=== PATIENT | female | born 1950 | race Caucasian/White ===

== ENCOUNTER → 2018-04-25 08:03 | Outpatient (CLI) | payer MEDICARE, OTHER, SELFPAY ==
[2018-04-25 10:01] LABS: AST(SGOT) 24 U/L (15-37); Alanine Aminotransfer ALT/SGPT 27 U/L (13-56); Albumin, Serum 3.6 g/dL (3.2-5.0); Alkaline Phosphatase 89 U/L (45-117); Bilirubin, Direct 0.13 mg/dL (0.00-0.30); Cholesterol 200 mg/dL (200); Globulin 4.3 g/dL (2.2-4.2); High Density Lipoprotein 48 mg/dL; Protein, Total 7.9 g/dL (6.4-8.2); Triglycerides 186 mg/dL; Very Low Density Lipoprotein 37 mg/dL (5-40)
== END ==
PROVIDERS: Family Provider Family Medicine; PCP Family Medicine; Visit Provider Internal Medicine Cardiovascular Disease
DX: E78.5 Hyperlipidemia, unspecified (principal); I48.91 Unspecified atrial fibrillation; Z94.7 Corneal transplant status
CPT/HCPCS: 36415; 80061; 80076

== ENCOUNTER → 2019-02-02 12:51 | Outpatient (CLI) | payer MEDICARE, OTHER, SELFPAY ==
[2019-01-13 13:49] VITALS: BMI 28.7
--- NOTE | 2019-02-02 12:53 | ECHOD_ITS ---
Reason For Study: Syncope Procedure This was a 2D Doppler, Color Flow transthoracic echocardiogram. Exam performed in department. Left Ventricle Normal size and thickness. The estimated ejection fraction is 65 %. Stage 1 diastolic dysfunction. No regional wall motion abnormalities noted. Right Ventricle Normal size and thickness. Normal systolic function. Atria Normal left atrium. Normal right atrium. Normal atrial septum. Mitral Valve The mitral valve is structurally normal. No prolapse or stenosis seen. Mild (1+) mitral valve insufficiency. Tricuspid Valve Normal tricuspid valve. Mild (1+) tricuspid valve insufficiency. Right ventricular systolic pressure estimated to be 35 mmHg. Aortic Valve Normal aortic valve. Trisinus/trileaflet aortic valve. Pulmonic Valve Normal pulmonic valve. Trivial pulmonic valve insufficiency. Great Vessels Normal aortic root. Normal arch. Normal inferior vena cava. Inferior vena cava collapse with sniff. Pericardium/Pleural No pericardial effusion. Medication 22 gauge I.V. with prn adaptor inserted into right arm. Diluted definity 2ml given slow IV push to enhance endocardial definition. MMode/2D Measurements & Calculations LVIDd: 4.3 cm IVSd: 0.97 cm Ao root diam: 3.3 cm LVIDs: 3.1 cm LVPWd: 1.0 cm RVDd: 3.0 cm FS: 28.1 % LAV(MOD-bp): 43.0 ml LA A4 area: 17.1 cm2 RA A4 area: 14.8 cm2 LAV(MOD-bp) Indexed: 25.7 ml/m2 LAV(MOD-sp2): 40.9 ml LAV(MOD-sp4): 42.3 ml Time Measurements MV dec time: 0.29 sec Doppler Measurements & Calculations MV E max reinaldo: 58.2 cm/sec Lat Peak E' Reinaldo: 7.9 cm/sec Med Peak E' Reinaldo: 7.2 cm/sec MV A max reinaldo: 75.1 cm/sec E/E' lat: 7.4 E/E' med: 8.1 MV E/A: 0.78 MV V2 max: 79.8 cm/sec MV P1/2t max reinaldo: 71.6 cm/sec Ao V2 max: 115.8 cm/sec MV max P.5 mmHg MV P1/2t: 73.4 msec Ao max P.4 mmHg MV V2 mean: 45.3 cm/sec MV dec slope: 285.9 cm/sec2 Ao V2 mean: 72.3 cm/sec MV mean P.97 mmHg Ao mean P.4 mmHg MV V2 VTI: 19.7 cm MVA(P1/2t): 3.0 cm2 Ao V2 VTI: 22.8 cm LV V1 max: 88.6 cm/sec MR max reinaldo: 476.3 cm/sec PA V2 max: 69.3 cm/sec LV V1 max P.1 mmHg MR max P.7 mmHg LV V1 mean P.4 mmHg MR mean reinaldo: 382.8 cm/sec LV V1 mean: 54.0 cm/sec MR mean P.4 mmHg LV V1 VTI: 21.6 cm MR VTI: 170.1 cm TR max reinaldo: 265.3 cm/sec TR max P.2 mmHg Interpretation Summary The estimated ejection fraction is 65 %. Stage 1 diastolic dysfunction. Mild (1+) mitral valve insufficiency. Mild (1+) tricuspid valve insufficiency. Right ventricular systolic pressure estimated to be 35 mmHg. Compared to echo report dated 07/17/2015, no apprecialbe changes noted. The study was technically difficult. Contrast injection was performed. Ordering Physician: Madhav Zapien Referring Physician: Madhav Zapien Performed By: Carmelo Devi RCS
== END ==
PROVIDERS: Family Provider Family Medicine; PCP Family Medicine; Referring Provider Internal Medicine Cardiovascular Disease; Visit Provider Internal Medicine Cardiovascular Disease
DX: R55 Syncope and collapse (principal)
CPT/HCPCS: 93306; Q9957; A4216; C8929

== ENCOUNTER → 2019-08-31 09:33 | Outpatient (CLI) | payer MEDICARE, OTHER, SELFPAY ==
[2019-08-31 09:36] VITALS: BMI 29.5
[2019-08-31 11:31] LABS: AST(SGOT) 17 U/L (15-37); Alanine Aminotransfer ALT/SGPT 21 U/L (13-56); Albumin, Serum 3.5 g/dL (3.2-5.0); Alkaline Phosphatase 87 U/L (45-117); Bilirubin, Direct 0.14 mg/dL (0.00-0.30); Cholesterol 201 mg/dL (200); Globulin 4.1 g/dL (2.2-4.2); Protein, Total 7.6 g/dL (6.4-8.2); Triglycerides 129 mg/dL
[2019-08-31 11:32] LABS: High Density Lipoprotein 48 mg/dL; Very Low Density Lipoprotein 26 mg/dL (5-40)
== END ==
PROVIDERS: Family Provider Family Medicine; PCP Family Medicine; Referring Provider Internal Medicine Cardiovascular Disease; Visit Provider Internal Medicine Cardiovascular Disease
DX: E78.00 Pure hypercholesterolemia, unspecified (principal)
CPT/HCPCS: 80061; 80076

== ENCOUNTER 2020-12-17 15:51 | Outpatient (RCR) | payer MEDICARE, OTHER, SELFPAY ==
[2020-08-14 13:48] VITALS: BMI 29.6
[2020-12-17] MEDS: COVID-19 VACC, MRNA(PFIZER)/PF 30 MCG/0.3 ML SYRINGE IM (13:39)
[2021-01-07] MEDS: COVID-19 VACC, MRNA(PFIZER)/PF 30 MCG/0.3 ML SYRINGE IM (13:42)
== END 2021-03-18 23:59 ==
LOC: IMMUN 15:51
PROVIDERS: PCP Family Medicine; Visit Provider Family Medicine
DX: Z23 Encounter for immunization (principal)
CPT/HCPCS: 0001A; 0002A; 91300

== ENCOUNTER 2021-10-30 13:19 | Emergency (ER) | payer MEDICARE, OTHER, SELFPAY ==
[2021-10-30 13:20] VITALS: BP 154/86; PULSE 86; RESP 15; TEMP 36.6; O2SAT 98; BMI 30.1
--- NOTE | 2021-10-30 14:25 | EKG12_ITS ---
Test Reason : Blood Pressure : / mmHG Vent. Rate : 073 BPM Atrial Rate : 073 BPM P-R Int : 164 ms QRS Dur : 066 ms QT Int : 396 ms P-R-T Axes : 022 021 067 degrees QTc Int : 436 ms Normal sinus rhythm Nonspecific ST abnormality Abnormal ECG Confirmed by ALYSON CROFT, OBIE ([id number]), editor farm journal RAQUEL NICHOLE ([id number]) on 10/31/2021 9:38:04 AM Referred By: THALIA Confirmed By:OBIE SHIELDS MD
--- NOTE | 2021-10-30 14:25 | RAD_ITS ---
STUDY: X-RAY CHEST REASON FOR EXAM: Female, 71 years old. Weakness TECHNIQUE: Single AP portable view of the chest. COMPARISON: Comparison is made with prior study dated 02/21/2015. FINDINGS: EKG electrodes are seen. Hyperinflation. The lungs are clear. There is no demonstrated pleural abnormality. Normal size heart. Normal mediastinum and gorge. Normal visualized pulmonary arteries. There is atherosclerotic calcification of the aortic arch with tortuosity. Normal visualized thoracic spine. Normal visualized ribs, clavicles, and shoulders. There is no demonstrated abnormality of the visualized soft tissue structures of the upper abdomen. RAD/Chest 1 View (Portable) IMPRESSION: Hyperinflation. The lungs are clear. Electronically Signed: Ever Escobedo MD at 15:14 EST , Service support ,
--- NOTE | 2021-10-30 14:25 | CT_ITS ---
STUDY: CT BRAIN WITHOUT CONTRAST REASON FOR EXAM: Female, 71 years old. Visual disturbance RADIATION DOSAGE (If Supplied By Facility): CTDIvol = ( 44.99 ) mGy, DLP = ( 762.36 ) mGycm TECHNIQUE: Transaxial CT imaging of the brain was performed without administration of intravenous contrast material. Individualized dose optimization techniques were used for this CT. COMPARISON: No relevant priors. FINDINGS: Normal soft tissue structures. Normal calvarium. Normal size ventricles and extra-axial spaces for the patient''s age. There is evidence of a 1.6 cm x 2.4 cm area of decreased attenuation in the posterior medial aspect of the left occipital lobe. This abuts the cortical surface. This may represent a subacute infarct. No significant mass effect is seen. Correlation with MRI scan is recommended for further evaluation. Normal basal ganglia and thalami. Normal brainstem. Normal cerebellum. There is prominence of the cisterna magna. This is a normal variant. There is no intracranial hemorrhage. There are no findings of an acute ischemic infarction. Normal visualized paranasal sinuses. CT/Brain/Head without Contrast IMPRESSION: 1.6 cm x 2.4 cm area of decreased attenuation in the peripheral medial aspect of the posterior left occipital lobe as described. This may represent an area of subacute infarction although an underlying mass cannot be excluded. Correlation with MRI is recommended. Electronically Signed: Ever Escobedo MD at 15:11 EST , Service support ,
--- NOTE | 2021-10-30 14:26 | EDS_ITS ---
HPI History of Present Illness Chief Complaint: General Illness Narrative Narrative: 71-year-old female presenting with a 4-day history of mild headache, lightheadedness, generalized fatigue, visual disturbance in her right eye. Patient states that this all started on Wednesday. She does not have history of this. It does not seem to be progressing but does not seem to be getting better either. She states that she does not have fever or chills. She does not have a cough or chest pain. She has abdominal pain. She denies urinary complaints. She has not had diarrhea or constipation. Patient states that she recently had a dental surgery and has been on antibiotics but finished her last dose today. She states he believes it was amoxicillin. Patient does not have any dental pain. She states that insofar as her vision is concerned when she covers her left eye she can see out of her right eye but when she uses both eyes she has trouble seeing. This makes her feel lightheaded when she walks. She has not had any history of head injury. She has been able to move all 4 extremities. She is not had any slurred speech or facial droop. She has no paresthesias. [facility] Medical History Dizziness and giddiness History of pericardial effusion Paroxysmal atrial fibrillation Pericardial effusion Sinus tachycardia Supraventricular arrhythmia Syncope and collapse Tobacco abuse Home Medications calcium carbonate 600 mg PO DAILY 02/21/15 [History Last Taken 02/21/15] cholecalciferol (vitamin D3) 2,000 unit PO DAILY 02/21/15 [History Last Taken 02/21/15] prednisolone acetate 1 drp LEFT EYE DAILY 02/21/15 [History Last Taken 2 Days Ago ~10/28/21] acyclovir 200 mg capsule 400 mg PO .COMPLEX 01/13/19 [History Last Taken 10/30/21] amlodipine 5 mg tablet 5 mg PO DAILY #30 tab 09/16/21 [Rx Last Taken 10/30/21] losartan 50 mg tablet 50 mg PO DAILY #90 tab 10/15/21 [Rx Last Taken 10/30/21] metoprolol succinate 25 mg tablet,extended release 24 hr 25 mg PO BID #180 tab 10/15/21 [Rx Last Taken 10/30/21] Allergy/AdvReac Type Severity Reaction Status Date / Time No Known Allergies Allergy Verified 10/30/21 13:20 Surgical History corneal transplant History of tonsillectomy History of tubal ligation Social History Smoking Status: Former smoker how long ago did patient quit smokin years ago alcohol intake: current alcohol intake frequency: holidays/special occasions only substance use type: does not use and other details: CBD vape caffeine: No what type of physical activity do you participate in: none ROS ROS ED Constitutional Constitutional ED: Denies chills or fever(s) Eyes Eyes: Reports blurry vision right ENT ENT ED: Denies rhinorrhea or sore throat Cardiovascular Cardiovascular: Denies chest pain or palpitations Respiratory/Chest Respiratory/Chest: Denies cough or dyspnea Gastrointestinal Gastrointestinal: Denies abdominal pain, diarrhea, nausea or vomiting Genitourinary Genitourinary ED: Denies dysuria or hematuria Musculoskeletal Musculoskeletal: Denies arthralgias or myalgias Integumentary Denies Abrasions or rash Neurologic Neurologic: Reports headache(s); Denies paresthesias EXAM Physical Exam Const Vital Signs: 10/30/21 13:20 10/30/21 14:51 10/30/21 17:15 Temperature 97.8 F Temperature Source Temporal Pulse Rate 86 72 Respiratory Rate 15 19 H Respiratory Effort Normal Non-Labored Respiratory Pattern Normal Blood Pressure 154/86 H 123/89 H Blood Pressure Mean 108 100 Pulse Ox 98 95 Oxygen Delivery Method Room Air Room Air Oxygen Flow Rate (L/min) 10/30/21 19:26 Temperature Temperature Source Pulse Rate 80 Respiratory Rate 24 H Respiratory Effort Respiratory Pattern Blood Pressure 143/90 H Blood Pressure Mean 107 Pulse Ox 95 Oxygen Delivery Method Nasal Cannula Oxygen Flow Rate (L/min) 2 Positive well nourished General Appearance ED: NAD; Negative for pallor HEENT Reports moist mucous membranes Negative for trauma Eyes PERRL and EOMs intact bilaterally Eyes Narrative: Left eye visual cox appear to be intact. While testing her right eye from the medial direction she sees my finger as I approached the left side of her face as I am in front of her left eye. From the lateral approach she does not see my finger coming across her visual field until its well past the midline of her right eye. Resp normal respiratory effort and clear to auscultation bilaterally Cardio regular rate and regular rhythm Extremity normal to inspection Neuro oriented x3 and no sensory deficits noted Sensorium / Orientation: alert Motor Exam: strength 5/5 throughout Psych mental status grossly normal Skin General Skin Exam: Negative for jaundice or pallor MDM MDM MDM Narrative Medical decision making narrative: Patient presenting with multiple symptoms of fatigue and weakness. She does mention that she has difficulty seeing out of her right eye unless her left eye is closed. On examination she has a right sided hemianopsia of her right eye. No other focal neurologic deficits. CBC and CMP are unremarkable. Urinalysis is negative for infection. EKG is sinus rhythm with a ventricular rate of 69 bpm without sign of ischemic change or dysrhythmia. Chest x-ray on my interpretation shows no acute cardiopulmonary process and the radiologist does agree patient does have a noted history of atrial fibrillation and her history. She is not anticoagulated. High- sensitivity troponin is 43. Patient is not reporting any chest pain. COVID testing today is negative. CT of the brain without contrast shows a 1.6 cm x 2.4 cm area of decreased attenuation in the peripheral medialaspect of the posterior left occipital lobe. The radiologist Did call me and tell me that there was a infarct here on MRI on follow-up. He states there is hemorrhagic conversion. At this point I did speak with [facility] and spoke with Dr. Blanco who recommended that we do transfer to [facility]. They will do a hemorrhagic stroke alert. Patient is not on any anticoagulation and there is nothing to reverse. Accepting physician will be Dr. North. I do not believe the patient at this point needs [facility] but she does need emergent transfer. EMS states they could be here in about an hour. Patient consented for transfer. Impression: 1. Right eye right-sided hemianopsia 2. 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 Lab Data Labs: Laboratory Results - last 24 hr 10/30/21 10/30/21 10/30/21 13:40 14:44 14:44 WBC 10.9 RBC 4.93 Hgb 15.7 H Hct 47.4 H MCV 96.1 MCH 31.8 MCHC 33.1 RDW Std Deviation 49.3 H RDW Coeff of Jeannette 13.9 Plt Count 391 MPV 10.3 Immature Gran % (Auto) 0.500 Neut % (Auto) 64.8 Lymph % (Auto) 23.3 [place] % (Auto) 9.7 Eos % (Auto) 1.6 Baso % (Auto) 0.1 Absolute Neuts (auto) 7.1 Absolute Lymphs (auto) 2.54 Nucleated RBC % 0 Sodium 138 Potassium 4.6 Chloride 106 Carbon Dioxide 28.0 Anion Gap 4 L BUN 16 Creatinine 0.90 Estim Creat Clear Calc 43.89 Est GFR (MDRD) Af Amer 79 Est GFR (MDRD) Non-Af 65 BUN/Creatinine Ratio 17.7 Glucose 92 Calcium 9.8 Total Bilirubin 0.30 AST 23 ALT 27 Alkaline Phosphatase 83 Troponin I High Sens 43 Total Protein 7.9 Albumin 3.5 Globulin 4.4 H Albumin/Globulin Ratio 0.8 L Urine Color Yellow Urine Clarity Sl. Cloudy Urine pH 6.0 Ur Specific Kelli[place] 1.005 Urine Protein Negative Urine Glucose (UA) Normal Urine Ketones Negative Urine Occult Blood Negative Urine Nitrite Negative Urine Bilirubin Negative Urine Urobilinogen Normal Ur Leukocyte Esterase Negative Urine RBC 0 SEEN Urine WBC 0 SEEN Ur Squamous Epith Cells 0-5 SEEN Amorphous Sediment 1+ URATE Urine Bacteria 0 SEEN Urine Mucus 0 SEEN Radiography Diagnostic Testing: Clinical Impression(s) from Imaging Studies Brain CT 10/30/21 14:25 IMPRESSION: 1.6 cm x 2.4 cm area of decreased attenuation in the peripheral medial aspect of the posterior left occipital lobe as described. This may represent an area of subacute infarction although an underlying mass cannot be excluded. Correlation with MRI is recommended. Electronically Signed: Ever Escobedo MD at 15:11 EST , Service support , Chest X-Ray 10/30/21 14:25 IMPRESSION: Hyperinflation. The lungs are clear. Electronically Signed: Ever Escobedo MD at 15:14 EST , Service support , Brain MRI 10/30/21 18:10 ADDENDUM: 10/30/21 1932 Discharge Plan Triage Chief Complaint: General Illness ED Provider: Delio Palmer Dx/Rx/DC Orders Prescriptions: No Action amlodipine 5 mg tablet 5 mg PO DAILY Qty: 30 RF: 12 prednisolone acetate 10 ML drops,suspension 1 drp LEFT EYE DAILY RF: 0 calcium carbonate 600 MG tablet 600 mg PO DAILY RF: 0 cholecalciferol (vitamin D3) 1,000 UNIT tablet 2,000 unit PO DAILY RF: 0 acyclovir 200 mg capsule 400 mg PO .COMPLEX RF: 0 metoprolol succinate 25 mg tablet extended release 24 hr 25 mg PO BID Qty: 180 RF: 3 losartan 50 mg tablet 50 mg PO DAILY Qty: 90 RF: 3 Primary Care Provider: Mynor Underwood
[2021-10-30] MEDS: 0.9% Normal Saline 1,000 ML 1000 ML IV (14:44)
[2021-10-30 14:53] LABS: Absolute Lymphocyte Count 2.54 X10^3/uL (0.83-4.51); Absolute Neutrophil Count 7.1 X10^3/uL (2.0-7.7); Basophil# 0.01 X10^3/uL; Basophil% 0.1 % (0-1); Eosinophil# 0.17 X10^3/uL; Eosinophils% 1.6 % (0-5); Hematocrit 47.4 % (37-47); Hemoglobin 15.7 g/dL (12.0-15.0); Lymphocyte # 2.54 X10^3/ul (0.83-4.51); Lymphocyte % 23.3 % (19-41); Mean Corp Hgb Conc 33.1 g/dL (32-36); Mean Corpuscular Hgb 31.8 pg (27.0-32.0); Mean Corpuscular Volume 96.1 fL (81-99); Mean Platelet Vol. 10.3 fl (6.2-12.0); Monocyte# 1.06 X10^3/uL; Monocyte% 9.7 % (0-10); NRBC Flagged by Analyzer 0 % (0-5); Neutrophil # 7.07 X10^3/uL (2.7-7.7); Neutrophil % 64.8 % (47-70); Platelet Count 391 K/mm3 (150-450); RBC Distribution Width CV 13.9 % (11.6-14.6); RBC Distribution Width SD 49.3 fl (35.1-43.9); Red Blood Count 4.93 M/mm3 (4.2-5.4); White Blood Count 10.9 K/mm3 (4.4-11.0)
[2021-10-30 15:04] LABS: Bacteria 0 SEEN /hpf (None Seen); Mucous, Urine 0 SEEN /hpf (<or=2+); Red Blood Cells-Urine 0 SEEN /hpf (0-5); White Blood Cells 0 SEEN /hpf (0-5)
[2021-10-30 15:11] LABS: ALB/GLOB Ratio 0.8 RATIO (0.9-2.4); AST(SGOT) 23 U/L (15-37); Alanine Aminotransfer ALT/SGPT 27 U/L (13-56); Albumin, Serum 3.5 g/dL (3.2-5.0); Alkaline Phosphatase 83 U/L (45-117); Anion Gap 4 (5-15); BUN 16 mg/dL (7-18); BUN/Creat Ratio 17.7 RATIO (10-20); Calcium,Total 9.8 mg/dL (8.5-10.1); Chloride 106 mmol/L (98-107); EST Glomerular Filtration Rate 65 mL/min (>60); Est Glom Filt Rate - Afr Amer 79 mL/min (>60); Estimated Creatinine Clearance 43.89 ml/min; Globulin 4.4 g/dL (2.2-4.2); Glucose 92 mg/dL (74-106); Potassium 4.6 mmol/L (3.5-5.1); Protein, Total 7.9 g/dL (6.4-8.2); Sodium Level 138 mmol/L (136-145); Troponin-I HS 43 pg/mL (3.0-54.0)
[2021-10-30 15:14] LABS: Color, Urine Yellow (Yellow); Glucose, Dipstick Normal (Normal); Ketone-Dipstick Negative (Negative); Leukocyte Esterase-Dipstick Negative /ul (Negative); Nitrite-Dipstick Negative (Negative); Occult Blood-Urine Negative /ul (Negative); Protein-Dipstick Negative (Negative); Specific Gravity, Urine 1.005 (1.002-1.030); Urine Bilirubin Dipstick Negative (Negative); Urine Clarity Sl. Cloudy (Clear); Urine Urobilinogen Normal (Normal)
[2021-10-30 15:26] LABS: Amorphous Sediment 1+ URATE; Squamous Epithelial Cells - UA 0-5 SEEN /hpf (5-10)
--- NOTE | 2021-10-30 15:59 | ED.RN ---
This nurse assisted pt up to bathroom gait steady, pt was finished and pulled the call light, this nurse re-entered room, pt stated I just don't feel right pt then slid down the wall to the floor without incident. This nurse had a co-worker stay with pt and obtained a wheelchair, pt up to wheelchair and escorted back to room 16. Pt resting quietly in bed vital signs, bp 150/81 pulse 77 respirations 19 pulse ox RA 98%
--- NOTE | 2021-10-30 16:21 | EKG12_ITS ---
Test Reason : SYNCOPE Blood Pressure : / mmHG Vent. Rate : 069 BPM Atrial Rate : 069 BPM P-R Int : 162 ms QRS Dur : 068 ms QT Int : 406 ms P-R-T Axes : 017 006 051 degrees QTc Int : 435 ms Normal sinus rhythm Normal ECG Confirmed by JOJO CROFT, ILENE ([id number]), newspaper copy editor YASH MCGARRY ([id number]) on 10/31/2021 1:25:14 PM Referred By: THALIA/JASMEET Confirmed By:ILENE URIBE MD
[2021-10-30 17:15] VITALS: BP 123/89; PULSE 72; RESP 19; O2SAT 95
--- NOTE | 2021-10-30 18:10 | MRI_ITS ---
We are attempting to reach an attending provider to discuss findings. An addendum with communication details will be sent when the communication is complete. STUDY: MR Brain W/O Contrast 10/30/2021 7:12 PM REASON FOR EXAM: Female, 71 years old. Technologist Notes HEADACHE X 4 DAYS. RIGHT EYE BLURRY. LIGHTHEADED. CT BRAIN DONE 10/30/21. stroke HEADACHE COMPARISON: CT done earlier TECHNIQUE: Standardized multiplanar fat and water weighted pulse sequences were obtained. MR Brain W/O Contrast FINDINGS: There is mild cerebral atrophy with widening of the extra-axial spaces and ventricular dilatation. There are a limited number of small white matter hyperintensities, distributed throughout the deep white matter tracts of the cerebral hemispheres, consistent with mild chronic white matter ischemic changes. There is mild prominence of the vermian folia, consistent with atrophy of the vermis. The cerebellar hemispheres are normal. There is a hypodense region which is likely an arachnoid cyst. This is noted between the cerebellar hemisphere. There is abnormal diffusion weighted signal in the Left occipital lobe. There is a correlation abnormal area of low ADC signal. This is consistent for an infarction. Normal bilateral basal ganglia. Normal thalami. There is no extra-axial fluid accumulation. Normal flow voids within the major intracranial circulation suggesting patency by spin echo criteria. Normal sella turcica, pituitary gland, infundibular stalk, optic chiasm and hypothalamus. Normal tectal plate and pineal gland. Normal midbrain, chanel and medulla. Normal basal cisterns. Normal bilateral temporal bones. Normal bilateral internal auditory canals. No demonstrated orbital abnormality, within the constraints of a routine brain study. Normal visualized paranasal sinuses. Normal calvarium and skull base. Normal visualized soft tissue structures. There are degenerative changes of the anterior atlantoaxial articulation. Aspect score 10 IMPRESSION: (NOT LISTED IN ORDER OF SIGNIFICANCE) There is an acute infarction of the left occipital lobe with hemorrhagic conversion. Electronically Signed: Mayo Snyder MD at 19:17 EST , Service support , MRI/Brain without Contrast
[2021-10-30 19:26] VITALS: BP 143/90; PULSE 80; RESP 24; O2SAT 95
--- NOTE | 2021-10-30 19:46 | ED.RN ---
CALLED PHYSICIANS AND THE ETA IS ONE HOUR
[2021-10-30] MEDS: LORazepam 2 MG/ML Syringe 0.5 MG IV (20:36)
[2021-10-30] MEDS: Acetaminophen 500 MG Tablet 1000 MG PO (20:36)
[2021-10-30 20:45] VITALS: BP 158/96; PULSE 91
== END 2021-10-30 20:46 | disposition short-term general hospital (02) ==
LOC: ED 13:57
PROVIDERS: Emergency Provider Student in an Organized Health Care Education/Training Program; PCP Family Medicine; Visit Provider Student in an Organized Health Care Education/Training Program
DX: H53.47 Heteronymous bilateral field defects (principal); I48.0 Paroxysmal atrial fibrillation; I63.532 Cerebral infarction due to unspecified occlusion or stenosis of left posterior cerebral artery; Z87.891 Personal history of nicotine dependence; Z79.899 Other long term (current) drug therapy
CPT/HCPCS: 70450; 70551; 71045; 80053; 81001; 84484; 85025; 87426; 93005; 96361; 96374; 99285; J7030; A4216

== ENCOUNTER 2021-11-06 16:00 | Outpatient (RCR) | payer MEDICARE, OTHER, SELFPAY ==
--- NOTE | 2021-11-06 16:52 | HP.PTEVAL_ITS ---
Patient's Visit Information RJEI PAGE is a 71 year old F referred to Physical Therapy by GITA AYALA with a diagnosis of . Date of Evaluation: 11/06/21 Physical Therapist: Lawanda Bello DPT - Visit Plan Frequency: 1x/Week Duration: 1 Week Plan: Patient is currently safe with functional mobility- her balance, endurance and strength are within functional limits for her age. She goes to [employer] 3x a week for workout with family. - Subjective CVA was about a week and a half ago. Patient lives in a single story- 3 stairs to enter- HR- no problems getting in/out. Lives alone- fully I prior to her stroke. At this time she does not have her confidence. She reports that she is not driving. She has not had any falls or loss of balance. No pain in her legs. No N/T in her feet or toes. 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 *See OT note for more details - Objective Posture: fair throughout. Gait: no deviation noted. Stairs: asc/desc 8 recip with 1 HR- good technique. Balance: SLS: 5 sec Tandem Stance: 5 sec HR/TR: able. ROM: WFL in all planes. Strength: Core: fair Hip: 4+/5, Knee: 5/5, Ankle: 5/5. Flex: HS: mild, Gastroc: mild - Balance/Special Test Scores Functional Gait Assessment Score: 29 % Disability: 3.3400 Lower Extremity Functional Score: 68 TUG Test Time Seconds: 6.9 - Anticipated Interventions Thank you for the opportunity to evaluate your patient. For Medicare and Medicare HMO plans, please review the plan of care and approve it. It will need to be FAXED BACK to us at [phone] for Medicare purposes. For Medicare only, by signing this I certify the plan of care. Please let me know if there are questions or concerns regarding this plan of care. Physician Signature: Date:
--- NOTE | 2021-11-06 16:53 | HP.PT.NRP ---
REJI PAGE was seen in my office for initial evaluation on 11/06/21. The following Plan of Care was established for this patient: Initial Frequency: 1x/Week Initial Duration: 1 Week This patient was last seen in our office . Pertinent comments regarding their Physical therapy will appear below: At this point I will be discontinuing this patient from physical therapy. I would be happy to see this patient again in the future if found appropriate by the physician. Thank you! Lawanda Bello, SAMIAT Balance/Gait/Functional tests - Balance/Special Test Scores Functional Gait Assessment Score: 29 % Disability: 3.3400 Lower Extremity Functional Score: 68 TUG Test Time Seconds: 6.9 Tug Test: <10 sec.=free mobile
--- NOTE | 2021-11-10 16:45 | HP.OTEVAL ---
Patient's Visit Information REJI PAGE is a 71 year old F, referred to Occupational Therapy by GITA AYALA, with a diagnosis of cva. Date of Evaluation: 11/06/21 Occupational Therapist: Vandana Zarate, NERIS/Alex, CHT - Subjective This 71 year old female was seen for OT with dx of CVA- pt states she feels it happened a week ago Wednesday10/27/21 and went to hospital on 10/30/21. pt states she was not feeling well- pt though she had a bug of some kind- pt states this feeling of unwell has made her very nervous- pt states she wanted to go the the hospital. she mentioned to ER . her vision was off- pt states MRI indicated a stroke and had more test- - ADLs Comments: pt lives alone in ranch home with 3 steps to get in the home-. pt states she does have to go down the stairs to do laundry but-. pt states she drives- cooking- cleaning. dtr with pt - states she feels her mom is doing well- - ROM ROM Comments: WNL bilaterally - Strength Shoulder: right 4+/5 left 4+/5 Elbow: right 4+/5 left 4+/5 [employer] Rep[employer]r: right 50# left 45# Lateral Pinch: right 6# left 6# Tripod Pinch: right 6# left 4# Strength Comments: pt demo good functional strength - pt denies strength deficits - Sensation Sensation Comments: denies - Visual/Perceptual Skills Comments: pt states she has noticed she has a visual change - Nine Hole Peg Right: 31.49 Left: 35.51 - In-Hand Manipulation Finger to Palm Translation: Normal - Right, Normal - Left Palm to Finger Translation: Normal - Right, Normal - Left Shift: Normal - Right, Normal - Left Rotation: Normal - Right, Normal - Left - Quick DASH-Disab of Arm,Shoulder& Hand Quick DASH Score: 6.8175 - Rehabilitation General Assessment: pt denies need for OT services - dtr with pt and states they will initiate going back to [employer] and initiate an exercise routine again. - Visit Plan TEXT: Thank you for the opportunity to evaluate your patient. For Medicare and Medicare HMO plans, please review the plan of care and approve it. It will need to be FAXED BACK to us at [phone] for Medicare purposes. Please let me know if there are questions or concerns regarding this plan of care. Physician Signature: Date:
--- NOTE | 2021-11-10 16:46 | HP.OTDCSUM ---
It has been my pleasure to treat REJI PAGE under orders from GITA AYALA, for the diagnosis of cva for a total of 1 visit(s). Please see the following information for a summary of their discharge status. Patient Goals: Other Other: no skilled OT services needed at this time. If there are questions or concerns regarding this patient's occupational therapy, please fell free to call me at [phone]. Thank you for the referral of this patient. Sincerely, Vandana Zarate, OTR/L, CHT
== END 2021-11-06 19:00 | disposition home or self-care (01) ==
LOC: PT 16:00
PROVIDERS: PCP Family Medicine
DX: I63.332 Cerebral infarction due to thrombosis of left posterior cerebral artery (principal)
CPT/HCPCS: 97162; 97166

== ENCOUNTER → 2022-10-28 | Outpatient (CLI) | payer MEDICARE, OTHER, SELFPAY ==
[2022-10-28 18:00] LABS: Absolute Lymphocyte Count 2.77 X10^3/uL (0.83-4.51); Absolute Neutrophil Count 8.3 X10^3/uL (2.0-7.7); Basophil% 0.8 % (0-1); Eosinophil# 0.27 X10^3/uL; Eosinophils% 2.1 % (0-5); Hematocrit 42.6 % (37-47); Hemoglobin 14.1 g/dL (12.0-15.0); Lymphocyte # 2.77 X10^3/ul (0.83-4.51); Lymphocyte % 21.7 % (19-41); Mean Corp Hgb Conc 33.1 g/dL (32-36); Mean Corpuscular Hgb 32.5 pg (27.0-32.0); Mean Corpuscular Volume 98.2 fL (81-99); Mean Platelet Vol. 12.1 fl (6.2-12.0); Monocyte# 1.25 X10^3/uL; Monocyte% 9.8 % (0-10); NRBC Flagged by Analyzer 0 % (0-5); Neutrophil # 8.34 X10^3/uL (2.7-7.7); Neutrophil % 65.2 % (47-70); Platelet Count 340 K/mm3 (150-450); RBC Distribution Width CV 14.3 % (11.6-14.6); RBC Distribution Width SD 51.8 fl (35.1-43.9); Red Blood Count 4.34 M/mm3 (4.2-5.4); White Blood Count 12.8 K/mm3 (4.4-11.0)
[2022-10-28 18:41] LABS: ALB/GLOB Ratio 0.9 RATIO (0.9-2.4); AST(SGOT) 14 U/L (15-37); Alanine Aminotransfer ALT/SGPT 25 U/L (13-56); Albumin, Serum 3.3 g/dL (3.2-5.0); Alkaline Phosphatase 91 U/L (45-117); Anion Gap 11 (5-15); BUN 14 mg/dL (7-18); BUN/Creat Ratio 14.2 RATIO (10-20); Chloride 111 mmol/L (98-107); Creatinine, Serum 0.98 mg/dL (0.55-1.02); EST Glomerular Filtration Rate 59 mL/min (>60); Est Glom Filt Rate - Afr Amer 72 mL/min (>60); Globulin 3.8 g/dL (2.2-4.2); Glucose 90 mg/dL (74-106); Potassium 3.7 mmol/L (3.5-5.1); Protein, Total 7.1 g/dL (6.4-8.2); Sodium Level 142 mmol/L (136-145)
== END | disposition home or self-care (01) ==
LOC: MFPLAB 14:21
PROVIDERS: PCP Family Medicine; Visit Provider Family Medicine
DX: R19.7 Diarrhea, unspecified (principal)
CPT/HCPCS: 36415; 80053; 85025

== ENCOUNTER → 2022-10-29 | Outpatient (CLI) | payer MEDICARE, OTHER, SELFPAY | END | disposition home or self-care (01) | LOC: LABSPEC 14:34 | PROVIDERS: PCP Family Medicine; Visit Provider Family Medicine | DX: R19.7 Diarrhea, unspecified (principal) | CPT/HCPCS: 87493 ==

== ENCOUNTER → 2022-11-23 | Outpatient (CLI) | payer MEDICARE, OTHER, SELFPAY ==
--- NOTE | 2022-11-23 15:37 | MRI_ITS ---
EXAM: MR LEFT UPPER EXTREMITY WITHOUT AND WITH INTRAVENOUS CONTRAST, FOREARM CLINICAL INDICATION: LT FOREARM TO INCLUDE ELBOW, DECREASED RANGE OF MOTION TECHNIQUE: Multiplanar and multisequence MR images of the left forearm without and with intravenous contrast. This report was created using [employer] report [employer] technology. CONTRAST: IV 14ML CLARISCAN COMPARISON: None. FINDINGS: BONES/JOINTS: Moderate osteoarthritic changes at the ulnotrochlear angulation as well as the radiocapitellar articulation. Ligaments of the elbow are intact. No fracture. No joint effusion. No bone marrow signal alterations. MUSCLES: Muscles appear normal for age. OTHER SOFT TISSUES: Low-grade partial-thickness tearing involving the common flexor tendon origin on a background of mild to moderate tendinosis. Mild to moderate tendinosis involving the common extensor tendon without any tendon tearing. OTHER FINDINGS: Neurovascular structures are within normal limits. Distal forearm is not imaged on this study (separate study). MRI/Upper Ext No Joint W/WO Cont IMPRESSION: 1. Moderate osteoarthritic changes at the ulnotrochlear angulation as well as the radiocapitellar articulation. 2. Low-grade partial-thickness tearing involving the common flexor tendon origin on a background of mild to moderate tendinosis. Mild to moderate tendinosis involving the common extensor tendon without any tendon tearing. Electronically Signed: Bj Aquino MD at 22:45 EST ,
--- NOTE | 2022-11-23 15:37 | MRI_ITS ---
EXAM: MR LEFT UPPER EXTREMITY WITHOUT AND WITH INTRAVENOUS CONTRAST, WRIST CLINICAL INDICATION: LEFT WRIST,DECREASED RANGE OF MOTION TECHNIQUE: Multiplanar and multisequence MR images of the left wrist without and with intravenous contrast. This report was created using [employer] report [employer] technology. CONTRAST: 14ml iv clariscan COMPARISON: None. FINDINGS: LIGAMENTS: SCAPHOLUNATE: Unremarkable. Intact. LUNOTRIQUETRAL: Unremarkable. Intact. TENDONS: FLEXOR COMPARTMENTS: Unremarkable. Intact. No tenosynovitis. EXTENSOR COMPARTMENTS: Unremarkable. Intact. No tenosynovitis. NERVES: MEDIAN: Unremarkable. Median nerve is normal in size and signal intensity. ULNAR: Unremarkable. Ulnar nerve is normal in size and signal intensity. MUSCLES: Unremarkable. FLUID: At least a moderate size distal radioulnar joint effusion noted. CARTILAGE: Unremarkable. The articular cartilage is preserved. TRIANGULAR FIBROCARTILAGE COMPLEX: Scapholunate interosseous ligament and lunatotriquetral interosseous ligament as well as the triangular fibrocartilage complex are intact. BONES/JOINTS: Peripheral 7 mm cystic lesion at the distal/radial aspect of the lunate. This could be degenerative or represent an interosseous ganglion cyst. Tenosynovitis involving the first extensor compartment as well as the fourth extensor compartment. Moderate osteoarthrosis involving the first carpometacarpal joint and triscaphe joint with [id number]-[id number]-flkifwxb amount of joint fluid at the first carpometacarpal joint. No fracture. No abnormal bone marrow signal. OTHER SOFT TISSUES: Subcutaneous edema dorsally and along the radial aspect of the wrist. No ganglion. MRI/Upper Ext Joint Only W/WO Cont IMPRESSION: 1. Tenosynovitis involving the first extensor compartment as well as the fourth extensor compartment. 2. Moderate osteoarthrosis involving the first carpometacarpal joint and triscaphe joint with ibnhz-pj-eoojetzo amount of joint fluid at the first carpometacarpal joint. 3. At least a moderate size distal radioulnar joint effusion noted. Electronically Signed: Bj Aquino MD at 4:25 EST ,
== END | disposition home or self-care (01) ==
LOC: MRI 15:27
PROVIDERS: PCP Family Medicine; Visit Provider Family Medicine
DX: M25.632 Stiffness of left wrist, not elsewhere classified (principal)
CPT/HCPCS: 73220; 73223; A9575

== ENCOUNTER → 2023-01-25 | Outpatient (CLI) | payer MEDICARE, OTHER, SELFPAY ==
--- NOTE | 2023-01-25 14:56 | NEURO ---
NCS and/or EMG Patient Report Ordering Doctor: Wai Berman DATE OF SERVICE: 01/25/23 Indication: Left hand weakness and intermittent numbness of the lesser fingers following a fall onto an outstretched arm several months ago. Findings: Nerve conduction studies were performed in the left upper extremity. The left median motor study recording the abductor pollicis brevis showed a normal amplitude, normal distal latency and normal conduction velocity. The left ulnar motor study recording the abductor digiti minimi showed a normal amplitude, normal distal latency and normal conduction velocity. No conduction block or focal slowing was present across the elbow. The left median sensory response recording digit two showed a normal amplitude, latency and conduction velocity. The left ulnar sensory response recording digit five was absent. The left radial sensory response recording over the extensor snuff box showed a normal amplitude, latency and conduction velocity. Needle EMG of the left upper extremity muscles was performed. No denervation was seen in any muscle, though insertional activity was slightly increased in the first dorsal interosseous. Motor units in the first dorsal interosseous and flexor digitorum profundus (ulnar) were slightly long duration and polyphasic with reduced recruitment. All other motor unit morphology, activation and recruitment patterns were normal. Impression: This is an abnormal study. 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 The pathophysiology was primarily demyelinating though there was significant secondary sensory axon loss. In addition, there is no electrophysiologic evidence of a cervical radiculopathy or other entrapment neuropathy in the left upper extremity. Marty Cuevas D.O. Multi Select Codes Neurology Neurology Interp Codes: 67278-59 Musc test done w/n test comp (interp) and 67126-64 Nr cndj test 7-8 studies (interp)
== END | disposition home or self-care (01) ==
LOC: PSN 13:44
PROVIDERS: PCP Family Medicine; Referring Provider Orthopaedic Surgery; Visit Provider Orthopaedic Surgery
DX: G56.22 Lesion of ulnar nerve, left upper limb (principal); M19.032 Primary osteoarthritis, left wrist; M62.81 Muscle weakness (generalized)
CPT/HCPCS: 95886; 95910

== ENCOUNTER → 2023-05-27 | Outpatient (CLI) | payer MEDICARE, OTHER, SELFPAY ==
[2023-05-27 17:54] LABS: Anion Gap 6 (5-15); BUN 15 mg/dL (7-18); BUN/Creat Ratio 15.2 RATIO (10-20); Calcium,Total 8.5 mg/dL (8.5-10.1); Chloride 111 mmol/L (98-107); Cholesterol 129 mg/dL (200); Creatinine, Serum 0.99 mg/dL (0.55-1.02); EST Glomerular Filtration Rate 59 mL/min (>60); Est Glom Filt Rate - Afr Amer 71 mL/min (>60); Glucose 93 mg/dL (74-106); High Density Lipoprotein 43 mg/dL; Potassium 4.1 mmol/L (3.5-5.1); Sodium Level 138 mmol/L (136-145); Triglycerides 123 mg/dL; Very Low Density Lipoprotein 25 mg/dL (5-40)
== END | disposition home or self-care (01) ==
LOC: MFPLAB 14:05
PROVIDERS: PCP Family Medicine; Visit Provider Family Medicine
DX: I10 Essential (primary) hypertension (principal)
CPT/HCPCS: 36415; 80048; 80061

== ENCOUNTER → 2024-06-26 | Outpatient (CLI) | payer MEDICARE, OTHER, SELFPAY ==
[2024-06-26 18:21] LABS: ALB/GLOB Ratio 0.8 RATIO (0.9-2.4); AST(SGOT) 24 U/L (15-37); Alanine Aminotransfer ALT/SGPT 25 U/L (13-56); Albumin, Serum 3.3 g/dL (3.2-5.0); Alkaline Phosphatase 91 U/L (45-117); Anion Gap 7 (5-15); BUN 17 mg/dL (7-18); BUN/Creat Ratio 13.6 RATIO (10-20); Chloride 106 mmol/L (98-107); Cholesterol 113 mg/dL (200); Creatinine, Serum 1.25 mg/dL (0.55-1.02); EST Glomerular Filtration Rate 45 mL/min (>60); Est Glom Filt Rate - Afr Amer 54 mL/min (>60); Glucose 101 mg/dL (74-106); High Density Lipoprotein 58 mg/dL; Potassium 4.8 mmol/L (3.5-5.1); Protein, Total 7.3 g/dL (6.4-8.2); Sodium Level 134 mmol/L (136-145); Triglycerides 113 mg/dL; Very Low Density Lipoprotein 23 mg/dL (5-40)
== END | disposition home or self-care (01) ==
LOC: MFPLAB 14:34
PROVIDERS: PCP Family Medicine; Visit Provider Family Medicine
DX: I10 Essential (primary) hypertension (principal)
CPT/HCPCS: 36415; 80053; 80061

== ENCOUNTER 2025-02-12 03:00 | Emergency (ER) | payer MEDICARE, OTHER, SELFPAY ==
[2025-02-12 03:01] VITALS: BP 119/66; PULSE 68; RESP 20; TEMP 35.9; O2SAT 97; BMI 29.5
--- NOTE | 2025-02-12 03:09 | CT_ITS ---
PROCEDURE: BRAIN/HEAD WITHOUT CONTRAST 02/12/2025 REASON FOR EXAM: FALL TECHNIQUE: Head CT without intravenous contrast. Coronal and Sagittal reconstruction series were provided. One or more dose reduction techniques were used (e.g., Automated exposure control, adjustment of the mA and/or kV according to patient size, use of iterative reconstruction technique. RADIATION DOSE SUMMARY: CTDlvol: 44.99 mGy DLP: 796.11 mGycm COMPARISON: 10/30/2021 FINDINGS: No intracranial hemorrhage, mass effect or calvarial fracture. The ventricles are unchanged in size and remain midline. Now old area of encephalomalacia posterior medial left parietooccipital from previous site of infarct. Volume loss, atrophy again noted. Possible small mucous retention cyst partially imaged inferior left maxillary sinus. The other visualized paranasal sinuses, mastoids and orbits appear within limits. CT/Brain/Head without Contrast IMPRESSION: No intracranial hemorrhage, mass effect or calvarial fracture. Reading Location: [id number]
--- NOTE | 2025-02-12 03:11 | EX.ED.UPPERE ---
HPI History of Present Illness Chief Complaint: Upper Extremity Injury Informant: patient and family Narrative Narrative: Iqtdi-zrik-karemzkb female presents by EMS from home. Patient reports had a fall in her living room. Pain the left shoulder. She does admit to drinking alcohol and we discussed how often, she reports whenever I want to. She lives alone. She called her children who called EMS. She has had fractures in the past. Denies headache neck pain chest pain back pain. Denies pain to the lower extremities. She does not ambulate any assistance. Reports carpeted floor where she fell. No current anticoagulation as she has had hemorrhagic stroke in the past with paroxysmal A-fib history. Prior similar symptoms: Yes [facility] Medical History Contact dermatitis due to poison ulisses Ischemic stroke (10/30/21) Hypertension Tobacco abuse Pericardial effusion Syncope and collapse Dizziness and giddiness Supraventricular arrhythmia Paroxysmal atrial fibrillation Sinus tachycardia Pericardial effusion Atrial fibrillation Supraventricular tachycardia Syncope Home Medications ?Medication ?Instructions ?Recorded ?Last Taken ?Type prednisolone acetate 0.12 % eye 1 drp LEFT EYE DAILY 02/21/15 2 Days Ago History drops,suspension ~10/28/21 escitalopram oxalate 20 mg tablet 20 mg PO DAILY 12/01/22 Unknown History acyclovir 800 mg tablet 800 mg PO DAILY 12/07/23 Unknown History buspirone 7.5 mg tablet 7.5 mg PO BID 12/07/23 Unknown History diphenoxylate-atropine 2.5 1 tab PO TID 12/07/23 Unknown History mg-0.025 mg tablet gabapentin 300 mg capsule 300 mg PO ONCE PRN 12/07/23 Unknown History amlodipine 5 mg tablet 5 mg PO DAILY #90 tabs 12/06/24 Unknown Rx atorvastatin 40 mg tablet 40 mg PO DAILY #90 tabs 12/06/24 Unknown Rx losartan 50 mg tablet 50 mg PO DAILY #90 tabs 12/06/24 Unknown Rx propranolol 80 mg tablet 80 mg PO BID #180 tabs 01/02/25 Unknown Rx clonazepam 0.5 mg tablet 0.5 mg PO BID PRN 01/25/25 Unknown History docusate sodium 100 mg capsule 100 mg PO BID #60 caps 02/12/25 Unknown Rx (Colace) oxycodone-acetaminophen 5 mg-325 1 tab PO Q6H PRN PRN Pain 3 days 02/12/25 Unknown Rx mg tablet #12 TABLETS Allergy/AdvReac Type Severity Reaction Status Date / Time No Known Allergies Allergy Verified 01/25/25 14:32 Surgical History History of surgery on upper extremity (~03/2023) History of tubal ligation History of tonsillectomy corneal transplant History of corneal transplant Social History Smoking Status: Current every day smoker tobacco type: cigarettes how long ago did patient quit smokin years ago alcohol intake: current alcohol intake frequency: holidays/special occasions only substance use type: does not use and other details: CBD vape caffeine: No what type of physical activity do you participate in: none ROS ROS ED Constitutional Constitutional ED: Denies fever(s) Cardiovascular Cardiovascular: Denies chest pain Respiratory/Chest Respiratory/Chest: Denies cough Gastrointestinal Gastrointestinal: Denies diarrhea or vomiting Musculoskeletal Musculoskeletal: Reports other Details: Left shoulder pain ; Denies none, back pain or neck pain Integumentary Denies rash or wounds Neurologic Neurologic: Denies weakness EXAM Physical Exam Const Vital Signs: 02/12/25 03:01 Temperature 96.7 F L Temperature Source Oral Pulse Rate 68 Respiratory Rate 20 H Blood Pressure 119/66 Blood Pressure Mean 83 Pulse Ox 97 Oxygen Delivery Method Room Air Positive well nourished and well developed Constitutional Narrative: GCS 15. General Appearance ED: well developed and NAD HEENT Reports moist mucous membranes normocephalic and atraumatic Eyes General Eye ED: Yes normal appearance of both eyes Neck full ROM Neck Narrative: No midline tenderness. Chest Wall inspection of chest normal and palpation of chest normal Chest: Negative for tenderness Resp normal respiratory effort and normal air movement Effort and Inspection: symmetric chest movement; Negative for respiratory distress Cardio regular rate, regular rhythm and no murmurs Peripheral Pulses: pulses 2+ throughout GI normal to inspection, nondistended, normoactive bowel sounds and non-tender Palpation: Negative for guarding or rebound tenderness present Back/Spine Back/Spine Narrative: No midline thoracic or lumbar tenderness. Extremity Extremity Narrative: Left upper extremity plus sling made from EMS. This was removed. No clavicle tenderness. No deformity to the shoulder. There is tender palpation proximal and mid humerus. Soft compartment. No elbow tenderness. No difficulty with extension of the wrist. Right upper extremity: Full range of motion without any tenderness. Soft compartments. Pulses intact. Lower extremities: Negative logroll bilaterally. No hip tenderness. General Extremety ED: Yes tenderness; Negative for edema General Extremity: Negative for edema Neuro oriented x3, CN's II-XII intact bilaterally and no sensory deficits noted Sensorium / Orientation: awake and alert Skin no rashes or lesions noted and no wounds MDM MDM MDM Narrative Medical decision making narrative: Interventions / MDM: Differential diagnosis: Fracture, contusion, alcohol use Diagnosis considered but do not suspect: Intracranial hemorrhage however CT negative. No clinical compartment syndrome. My EKG interpretation: N/A Imaging independently reviewed and interpreted by myself: Left shoulder 3 view x-ray: Comminuted fracture proximal humerus and midshaft. Left humerus 2 views x-ray:Comminuted fracture proximal humerus and midshaft. CT brain: No intracranial hemorrhage. External documents reviewed: N/A Test considered but not ordered:N/A ED course: Fall with alcohol use. No clinical intoxication. Answering questions appropriately. Pain to shoulder and mid humerus. Image studies will be obtained. CT brain also ordered for further evaluation. CT brain negative. X-rays comminuted fracture proximal and midshaft humerus. Radial nerve is intact with wrist extension. Patient placed into posterior splint with a sling. Procedure note: Splinting verbal consent. With fracture wall comminuted IM morphine was given. Nursing assistance. Nylon sleeve placed left arm over the shoulder, Kerlix dressing extra padding mid and proximal humerus. The 5 inch long-arm plaster splint was placed. Secured with additional Kerlix and Keith wrap. Elbow in a flexed position. Patient placed in a sling. Neurovascular intact post splinting including recheck of wrist extension. 0450: I spoke with on-call orthopedist Dr. Montes who reviewed the films. He can follow up with her in the office next couple days for likely surgical planning. I discussed this with patient and family. They understand agree with plan. Prescription of Percocet and Colace sent to her pharmacy. Children states they can help patient at home. All questions were answered. Re-evaluation: stable Disposition discussed with patient/family/significant other: Patient and family Case discussed with consulting clinician: Orthopedics This note was generated with Dragon dictation software. It may contain incorrect words, spelling, and punctuation that were not noted in checking the note before signing. Discharge Plan Triage Chief Complaint: Upper Extremity Injury ED Provider: Jan Mata Dx/Rx/DC Orders Clinical Impression: Closed comminuted left humeral fracture, Fall Instructions: ED Fracture, Upper Extremity Prescriptions: New oxycodone-acetaminophen 5-325 mg tablet 1 tab PO Q6H PRN PRN (Reason: Pain) 3 Days Qty: 12 0RF docusate sodium [Colace] 100 mg capsule 100 mg PO BID Qty: 60 0RF No Action clonazepam 0.5 mg tablet 0.5 mg PO BID PRN escitalopram oxalate 20 mg tablet 20 mg PO DAILY acyclovir 800 mg tablet 800 mg PO DAILY buspirone 7.5 mg tablet 7.5 mg PO BID gabapentin 300 mg capsule 300 mg PO ONCE PRN diphenoxylate-atropine 2.5-0.025 mg tablet 1 tab PO TID prednisolone acetate 10 ML drops,suspension 1 drp LEFT EYE DAILY Patient Comments: 1 DROP IN THE LEFT EYE DAILY. amlodipine 5 mg tablet 5 mg PO DAILY Qty: 90 3RF atorvastatin 40 mg tablet 40 mg PO DAILY Qty: 90 3RF losartan 50 mg tablet 50 mg PO DAILY Qty: 90 3RF propranolol 80 mg tablet 80 mg PO BID Qty: 180 3RF Stand Alone Forms: Bone Health Referral Primary Care Provider: Mynor Underwood Referrals: Colton Montes DO [Med Staff - Active Staff] - 1 Day Mynor Underwood MD [Primary Care Provider] - Activity Restrictions/Additional Instructions: CT brain negative. Comminuted left humeral fracture. Maintain splint and sling for comfort. Discussed with Dr. Montes in the ED. Call office to be seen in the next 2 days. Take pain medicines as prescribed. Use stool softeners to prevent constipation. Print Language: Portuguese Disposition Disposition: Home, Self Care
--- NOTE | 2025-02-12 03:25 | RAD_ITS ---
PROCEDURE: SHOULDER MIN 2 VIEWS 02/12/2025 REASON FOR EXAM: INJURY TECHNIQUE: Three views left shoulder COMPARISON: None available FINDINGS: Comminuted butterfly fracture proximal humerus with significant appearing displacement. No glenohumeral joint dislocation. Mild AC joint osteoarthrosis. Visualized left lung appears clear. Cervical multilevel left facet degenerative changes. RAD/Shoulder min 2 Views IMPRESSION: Comminuted butterfly fracture proximal humerus with significant appearing displ acement. Reading Location: [id number]
--- NOTE | 2025-02-12 03:25 | RAD_ITS ---
EXAM: DX humerus minimum two views CLINICAL HISTORY: Injury COMPARISON: None available TECHNIQUE: Two views left humerus, 3 total images FINDINGS: Acute comminuted fracture of the proximal left humerus diaphysis and metadiaphysis with multiple fracture fragments and significant appearing displacement, recommend orthopedic consult. RAD/Humerus min 2 Views IMPRESSION: Acute comminuted fracture of the proximal left humerus diaphysis and metadiaphy sis with multiple fracture fragments and significant appearing displacement, recommend orthopedic consult. Reading Location: [id number]
[2025-02-12] MEDS: Morphine 4 MG/ML Syringe IM (04:02)
[2025-02-12] MEDS: Ondansetron ODT 4 MG Tablet PO (04:14)
[2025-02-12 04:17] VITALS: BP 116/52; PULSE 66; RESP 16; TEMP 36.6; O2SAT 94
[2025-02-12 05:01] VITALS: PULSE 58; RESP 16; O2SAT 98
== END 2025-02-12 05:16 | disposition home or self-care (01) ==
PROVIDERS: Emergency Provider Emergency Medicine; PCP Family Medicine; Visit Provider Emergency Medicine
DX: S42.352A Displaced comminuted fracture of shaft of humerus, left arm, initial encounter for closed fracture (principal); F17.210 Nicotine dependence, cigarettes, uncomplicated; W19.XXXA Unspecified fall, initial encounter; Z86.73 Personal history of transient ischemic attack (TIA), and cerebral infarction without residual deficits
CPT/HCPCS: 70450; 73030; 73060; 96372; 99285

== ENCOUNTER → 2025-02-20 | Outpatient (CLI) | payer MEDICARE, OTHER, SELFPAY ==
--- NOTE | 2025-02-20 12:53 | EKG12_ITS ---
Test Reason : PREOP Blood Pressure : */* mmHG Vent. Rate : 62 BPM Atrial Rate : 62 BPM P-R Int : 166 ms QRS Dur : 70 ms QT Int : 422 ms P-R-T Axes : 36 28 47 degrees QTcB Int : 428 ms Normal sinus rhythm Septal infarct , age undetermined Abnormal ECG Confirmed by Wai Ballard ([id number]), editor publications YASH MCGARRY ([id number]) on 02/22/2025 10:08:27 AM Referred By: Rayna Moctezuma Confirmed By: Wai Ballard
[2025-02-20 13:53] LABS: Platelet Count 469 K/mm3 (150-450)
[2025-02-20 15:09] LABS: Anion Gap 11 (5-15); BUN 30 mg/dL (4-19); BUN/Creat Ratio 19.2 RATIO (10-20); Calcium,Total 8.9 mg/dL (7.6-11.0); Carbon Dioxide 20.5 mmol/L (21.0-32.0); Chloride 99 mmol/L (98-108); Creatinine, Serum 1.55 mg/dL (0.70-1.20); EST Glomerular Filtration Rate 35 (>60); Glucose 94 mg/dL (70-99); Potassium 5.2 mmol/L (3.3-5.1); Sodium Level 130 mmol/L (133-145)
== END | disposition home or self-care (01) ==
LOC: PSN 12:49
PROVIDERS: PCP Family Medicine
DX: I10 Essential (primary) hypertension (principal)
CPT/HCPCS: 36415; 80048; 85049; 93005

== ENCOUNTER → 2025-05-30 | Outpatient (CLI) | payer MEDICARE, OTHER, SELFPAY ==
[2025-05-30 17:59] LABS: Hematocrit 41.2 % (37-47); Hemoglobin 13.8 g/dL (12.0-15.0); Immature Granulocytes Count 0.070 X10^3/uL (0.0-0.0); Mean Corp Hgb Conc 33.5 g/dL (32-36); Mean Corpuscular Volume 100.2 fL (81-99); Mean Platelet Vol. 11.4 fl (6.2-12.0); NRBC Flagged by Analyzer 0 % (0-5); Platelet Count 370 K/mm3 (150-450); RBC Distribution Width CV 13.9 % (11.6-14.6); RBC Distribution Width SD 50.8 fl (35.1-43.9); Red Blood Count 4.11 M/mm3 (4.2-5.4); White Blood Count 10.7 K/mm3 (4.4-11.0)
[2025-05-30 18:17] LABS: Anion Gap 12 (5-15); BUN 21 mg/dL (4-19); BUN/Creat Ratio 19.0 RATIO (10-20); Calcium,Total 9.1 mg/dL (7.6-11.0); Carbon Dioxide 22.4 mmol/L (21.0-32.0); Chloride 101 mmol/L (98-108); Glucose 108 mg/dL (70-99); Potassium 4.9 mmol/L (3.3-5.1)
== END | disposition home or self-care (01) ==
LOC: MFPLAB 15:57
PROVIDERS: PCP Family Medicine; Referring Provider Family Medicine; Visit Provider Family Medicine
DX: Z01.818 Encounter for other preprocedural examination (principal)
CPT/HCPCS: 36415; 80048; 85025

== ENCOUNTER → 2025-06-18 | Outpatient (CLI) | payer MEDICARE, OTHER, SELFPAY ==
[2025-06-18 18:33] LABS: Hematocrit 32.4 % (37-47); Hemoglobin 10.4 g/dL (12.0-15.0); Immature Granulocytes Count 0.120 X10^3/uL (0.0-0.0); Mean Corp Hgb Conc 32.1 g/dL (32-36); Mean Corpuscular Volume 100.9 fL (81-99); Mean Platelet Vol. 10.4 fl (6.2-12.0); NRBC Flagged by Analyzer 0 % (0-5); Platelet Count 615 K/mm3 (150-450); RBC Distribution Width CV 13.5 % (11.6-14.6); RBC Distribution Width SD 50.6 fl (35.1-43.9); Red Blood Count 3.21 M/mm3 (4.2-5.4); White Blood Count 10.9 K/mm3 (4.4-11.0)
== END | disposition home or self-care (01) ==
LOC: MFPLAB 15:52
PROVIDERS: PCP Family Medicine; Visit Provider Family Medicine
DX: D64.9 Anemia, unspecified (principal)
CPT/HCPCS: 36415; 85025

== ENCOUNTER → 2025-09-18 | Outpatient (CLI) | payer MEDICARE, OTHER, SELFPAY ==
--- NOTE | 2025-09-18 15:46 | BD_ITS ---
PROCEDURE: DEXA BONE DENSITY STUDY 09/18/2025 REASON FOR EXAM: F, age 75 y/o . Postmenopausal. TECHNIQUE: Procedure Code: BDDBD Modality: DX Procedure: DEXA BONE DENSITY STUDY COMPARISON: None FINDINGS: BMD and T-SCORES Lumbar spine: 0.929 g/cm2, T-score -1.1 Levels: L1 through L4 Left femoral neck: 0.510 g/cm2, T-score -3.1 Left total hip: 0.656 g/cm2, T-score -2.3 Right femoral neck: 0.548 g/cm2, T-score -2.7 Right total hip: 0.665 g/cm2, T-score -2.3 The World Health Organization has defined the following categories based on bone density: Normal bone density: T-score equal to or greater than -1.0 Osteopenia: T-score between -1.0 and -2.5 Osteoporosis: T-score equal to or less than -2.5 FRAX (or Comparable) Fracture Risk Assessment: 10 Year Probability of Fracture: Major Osteoporotic Fracture: 32% Hip Fracture: 16% (Note: FRAX is not to be reported in setting of normal range bone density, osteoporosis on DEXA, known history of osteoporosis, prior osteoporotic hip or vertebral fracture, or for any patient undergoing pharmacological treatment for bone loss.) The National Osteoporosis Foundation (NOF) recommends pharmacological treatment for patients with a FRAX 10-year risk of 3% or higher for a hip fracture, or 20% or higher for a major osteoporotic fracture, to prevent osteoporosis and reduce fracture risk. The patient does meet the pharmacological treatment recommendations for prevention of osteoporosis. BD/Dexa Bone Density Study IMPRESSION: OSTEOPOROSIS. Recommend follow-up as clinically warranted. Reading Location: [id number]
--- NOTE | 2025-09-18 16:30 | BI_ITS ---
EXAM: SCRN MAMM (CAD)W/MARIO BILAT DATE: 09/18/2025 CLINICAL HISTORY: F, Age 75 y/o , SCREENING No family history. TECHNIQUE: Procedure Code: [id number] Modality: MG Procedure: SCRN MAMM (CAD)W/MARIO BILAT COMPARISON: Prior exam(s) dated outside examination September 15, 2012.. FINDINGS: TISSUE DENSITY: The breasts are heterogeneously dense, which may obscure small masses. Bilateral Breast Mammographic Findings: No significant masses, calcifications or other abnormalities are identified. No suspicious masses, areas of developing architectural distortion, or suspicious calcifications. There has been no significant interval change. BI/SCRN MAMM (CAD)W/MARIO BILAT IMPRESSION: Stable bilateral screening mammogram. OVERALL FINAL ASSESSMENT BI-RADS 1: NEGATIVE. RECOMMENDATION: Routine annual follow-up in 1 Year Additional Recommendation none A letter with findings and recommendations will be mailed to the patient. Reading Location: [place] [id number]
--- OUTSIDE RECORDS SUMMARY | 2025-09-18 19:03 | XMS RPT_ITS | CCD ---
Author Organization [facility] CliniSyri Care Team Providers Care Recycle Coordinator Name Role Phone Pardo, Christine Unavailable Unavailable Pardo, Christine Unavailable Unavailable DeFinis, Harumi Y Unavailable Unavailable MIKE VÁSQUEZ JR. Referring Unavailbonnie e KHARI WOLFF Admitting Unavailable KHARI WOLFF Attending Unavailable MYNOR UNDERWOOD Primary Care Unavailable Dr. Mynor Underwood Primary Care Provider Dr. Mynor Underwood Referring Provider Dr. Bob Castellanos Attending Provider [phone] Marlon Berman Referring Provider Dr. Marlon Berman Other Provider Dr. Chandana Cuevas Attending Provider Unavailable Primary Care Provider Unavailabl e Inc, [facility] Primary Care Provider Mynor Altamirano MD Primary Care Provider [phone] KARAN CHAVEZ Attending Unavailable MYNOR UNDERWOOD Referring Unavailable BACKER, YAZDANISM Attending Unavailable INC, [facility] Primary Care Unavailable KARAN CHAVEZ Admitting Unavailable KARAN CHAVEZ Attending Unavailable INC, [facility] Primary Care Unavailable KARAN CHAVEZ Attending Unavailable INC, [facility] Primary Care Unavailable BACKER, YAZDANISM Attending Unavailable MYNOR UNDERWOOD Primary Care Unavailable Inc, [facility] Primary Care Provider Dr. Mynor Altamirano MD Primary Care Provider [phone] Dr. Mynor Underwood MD Referring Provider [phone] Dr. Bob Castellanos MD Attending Provider Dr. Jan Mata DO Attending Provider Dr. Jan Mata DO Emergency Provider Rayna Knowles Attending Provider Rayna Knowles Referring Provider ROSAMARIA ZHONG MD Attending Unavailable Dr. Mynor Underwood MD Primary Care Provider Elio CROFT, Dr. Carreno Attending Provider Dr. Mynor Underwood MD Attending Provider [phone] Kj CROFT, Dr. Lowe Referring Provider ROSAMARIA ZHONG Admitting Unavailable ROSAMARIA ZHONG Attending Unavailable KJ, MYNOR Miles Primary Care Unavailable Kj, Mynor Referring Unavailable Bob Castellanos Attending Unavailable Kj, Mynor Primary Care Unavailable Kj, Mynor Primary Care Unavailable Jose Elias, Rayna Referring Unavailable Marlon Ballard Attending Unavailable Kj, Mynor Primary Care Unavailable Kj, Mynor Attending Unavailable Kj, Mynor Referring Unavailable Kj, Mynor Primary Care Unavailable Kj, Mynor Attending Unavailable Jose Elias, Rayna Attending Unavailable Jose Elias, Rayna Referring Unavailable Kj, Mynor Primary Care Unavailable Jan Mata Attending Unavailable Kj, Mynor Primary Care Unavailable Kj CROFT, Dr. Lowe Primary Care Physician Kj CROFT, Dr. Lowe Attending Physician Medications Current Medications Medication Drug Class(es) Dates Sig (Normalized) Sig (Original) acetaminophen 325 mg / HYDROcodone bitartrate 5 mg oral tablet (2 sources) Opioid Agonist Start: 04-09-2023 End: 04-14-2023 take 1 tablet by mouth every six hours as needed for pain HYDROcodone-acet aminophen ([place]) 5-325 MG tablet Indications: S/P cubital tunnel release Take 1 tablet by mouth every 6 hours as needed for severe pain (7-10) for up to 5 days. 20 tablet 0 04/09/2023 04/14/2023 Active acetaminophen 325 mg / oxyCODONE hydrochloride 5 mg oral tablet (3 sources) Opioid Agonist Start: 02-12-2025 take 1 tablet by mouth every six hours as needed for pain acyclovir 800 mg oral tablet (20 sources) Herpesvirus Nucleoside Analog DNA Polymerase Inhibitor, Herpes Simplex Virus Nucleoside Analog DNA Polymerase Inhibitor, Herpes Zoster Virus Nucleoside Analog DNA Polymerase Inhibitor Start: 12-07-2023 take 1 tablet by mouth once daily Start: 02-25-2015 take 1 tablet by vera th twice daily ZOVIRAX 400 MG TABS One tablet by mouth twice daily ACYCLOVIR [id number] Diane Hammond RN Start: 02-21-2015 End: 12-07-2023 take 1 capsule by mouth in the morning, then take 0.5 capsule by mouth in the evening Acyclovir 200 mg capsule Discontinued 400 mg PO .COMPLEX January 13, 2019 1:52pm December 01, 2022 6:52pm 400 mg PO one in am and 1/2 in evening; anti-viral Start: 02-21-2015 End: 12-01-2022 Acyclovir Discontinued 400 M G PO .COMPLEX January 13, 2019 1:52pm December 01, 2022 6:52pm 400 mg PO one in am and 1/2 in evening; anti-viral aspirin 325 mg oral tablet (13 sources) Platelet Aggregation Inhibitor, Nonsteroidal Anti-inflammatory Drug Start: 02-22-2023 take 1 tablet by mouth once daily aspirin 325 MG tablet Take 325 mg by mouth daily. 0 02/22/2023 Active Start: 12-15-2021 End: 12-07-2023 take 1 tablet by mouth once daily Aspirin 325 mg tablet,delayed release (DR/EC) Discontinued 325 mg PO DAILY December 15, 2021 1:00am December 07, 2023 4:13pm atropine sulfate 0.025 mg / diphenoxylate hydrochloride 2.5 mg oral tablet (8 sources) Anticholinergic, Cholinergic Muscarinic Antagonist, Antidiarrheal Start: 12-07-2023 take 1 tablet by vera three times daily diphenoxylate-atropine (Lomotil) 2.5-0.0 25 MG tablet Take 1 tablet by mouth 3 times daily. 0 Active busPIRone hydrochloride 7.5 mg oral tablet (3 sources) Start: 12-07-2023 take 1 tablet by mouth twice daily clonazePAM 0.5 mg oral tablet (16 sources) Benzodiazepine Start: 12-15-2021 End: 01-25-2025 take 1 tablet by mouth twice daily as needed docusate sodium 100 mg oral capsule (3 sources) Start: 02-12-2025 take 1 capsule by mouth twice daily escitalopram 20 mg oral tablet (11 sources) Serotonin Reuptake Inhibitor Start: 12-01-2022 take 1 tablet by mouth once daily gabapentin 300 mg oral capsule (9 sources) Anti-epileptic Agent Start: 12-07-2023 take 1 capsule by mouth once as needed Start: 02-25-2023 take 1 capsule by [facility] once daily at bedtime gabapentin (Neurontin) 300 MG capsule TAKE 1 CAPSULE BY MOUTH EVERYDAY AT BEDTIME 0 02/25/2023 Active Omeprazole (5 sources) Proton Pump Inhibitor Omeprazole Magnesium (PRILOSEC PO) Take by mouth daily. 0 Active Completed/Discontinued Medications Medication Drug Class(es) Dates Sig (Normalized) Sig (Original) acetaminophen 500 mg oral tablet (2 sources) Start: 04-09-2023 End: 04-09-2023 acetaminophen (Tylenol) tablet 1,000 mg ALPRAZolam 0.25 mg disintegrating oral tablet (2 sources) Benzodiazepine Start: 04-09-2023 End: 04-09-2023 ALPRAZolam (Xanax) disintegrating tablet 0.25 mg amLODIPine 5 mg oral tablet (20 sources) Dihydropyridine Calcium Channel Richie Start: 09-16-2021 End: 12-06-2024 take 1 tablet by mouth once daily Amlodipine 5 mg tablet Discontinued 5 mg PO DAILY 90 3 December 23, 2023 4:33pm December 06, 2024 1:02pm atorvastatin 40 mg oral tablet (20 sources) HMG-CoA Reductase Inhibitor Start: 12-15-2021 End: 12-06-2024 take 1 tablet by mouth once daily Atorvastatin 40 mg tablet Discontinued 40 mg PO DAILY 90 3 December 23, 2023 4:33pm December 06, 2024 1:02pm Calcium Carbonate (10 sources) Start: 02-25-2015 take 1 tablet by mouth once daily CALCIUM 600 600 MG TABS One tablet by mouth daily CALCIUM CARBONATE [id number] Diane Hammond RN Start: 02-21-2015 End: 12-01-2022 take 1 tablet by mouth once daily Calcium Carbonate 600 MG tablet Discontinued 600 mg PO DAILY February 21, 2015 12:00am December 01, 2022 6:50pm calcium chloride 0.0014 meq/ml / potassium chloride 0.004 meq/ml / sodium chloride 0.103 meq/ml / sodium lactate 0.028 meq/ml injectable solution (5 sources) Start: 04-09-2023 End: 04-09-2023 lactated Ringer's infusion ceFAZolin 2000 mg injection (1 source) Cephalosporin Antibacterial Start: 04-09-2023 End: 04-09-2023 ceFAZolin in dextrose 4% (Ancef) IVPB 2,000 mg cholecalciferol 2000 unt oral tablet (10 sources) Vitamin D Start: 02-25-2015 take 1 tablet by mouth once daily VITAMIN D 2000 UNIT TABS One tablet by mouth daily D3 CHOLECALCIFEROL [id number] Diane Hammond RN Start: 02-21-2015 End: 12-01-2022 take 2 tablets by mouth once daily Cholecalciferol (Vitamin D3) 1,000 UNIT tablet Discontinued 2000 U PO DAILY February 21, 2015 12:00am December 01, 2022 6:50pm Start: 02-21-2015 End: 12-01-2022 take 2000 [IU] by mouth once daily Cholecalciferol (Vitamin D3) Discontinued 2000 UNIT PO DAILY February 21, 2015 12:00am December 01, 2022 6:50pm [id number]-[id number] inephrine (TAP) syringe 30 mL (2 sources) Start: 04-09-2023 End: 04-09-2023 [id number]-[id number]-[id number] inephrine (TAP) syringe 30 mL 1 ml diphenhydrAMINE hydroch loride 50 mg/ml cartridge (2 sources) H i s t a m i n e - 1 R e c e p t o r A n t a g o n i s t Start: 04-09-2023 End: 04-09-2023 diphenhydrAMINE (BENADryl) i njection 12.5 mg doxycycline hyclate 100 mg o ral capsule (3 sources) T e t r a c y c l i n e - c l a s s D r u g Start: 11-04-2023 End: 11-14-2023 t a k e 1 c a p s u l e b y m o u t h t w i c e d a i l y Doxycycline Hyclate 100 mg capsule Discontinued 100 mg PO TWICE A DAY 20 10 0 November 04, 2023 1:00am November 13, 2023 1:00am November 14, 2023 1:04am Acute sinusitis, unspecified 1 ml ePHEDrine sulfate 50 mg /ml injection (1 source) a l p h a - A d r e n e r g i c A g o n i s t , b e t a - A d r e n e r g i c A g o n i s t , N o r e p i n e p h r i n e R e l e a s i n g A g e n t Start: 04-09-2023 End: 04-09-2023 ePHEDrine injection famotidine 20 mg oral tablet (2 sources) H i s t a m i n e - 2 R e c e p t o r A n t a g o n i s t Start: 04-09-2023 End: 04-09-2023 famotidine (Pepcid) tablet 2 0 mg 1 ml glycopyrrolate 0.2 mg/m l injection (1 source) Start: 04-09-2023 End: 04-09-2023 glycopyrrolate (Robinul) inj ection ibuprofen 600 mg oral tablet (6 sources) N o n s t e r o i d a l A n t i - i n f l a m m a t o r y D r u g Start: 02-25-2015 End: 08-19-2015 t a k e 1 t a b l e t b y m o u t h t h r e e t i m e s d a i l y IBUPROFEN 600 MG TABS One tablet by mouth three times daily IBUPROFEN [id number] Diane Hammond RN 1 ml ketorolac tromethamine 30 mg/ml cartridge (1 source) N o n s t e r o i d a l A n t i - i n f l a m m a t o r y D r u g , C y c l o o x y g e n a s e I n h i b i t o r Start: 04-09-2023 End: 04-09-2023 ketorolac (Toradol) injectio n labetalol (Normodyne,Trandat e) injection 5 mg (2 sources) Start: 04-09-2023 End: 04-09-2023 labetalol (Normodyne,Trandat e) injection 5 mg 10 ml lidocaine hydrochlorid e 20 mg/ml injection (3 sources) A n t i a r r h y t h m i c , A m i d e L o c a l A n e s t h e t i c Start: 04-09-2023 End: 04-09-2023 lidocaine PF (Xylocaine) 2 % injection Start: 04-09-2023 End: 04-09-2023 lidocaine PF (Xylocaine) 1 % injection 5 mL 1 ml LORazepam 2 mg/ml injection (2 sources) Benzodiazepine Start: 04-09-2023 End: 04-09-2023 LORazepam (Ativan) injection 0.5 mg losartan potassium 50 mg oral tablet (20 sources) Angiotensin 2 Receptor Richie Start: 12-01-2022 End: 12-06-2024 take 1 tablet by mouth once daily Losartan 50 mg tablet Discontinued 50 mg PO DAILY 90 3 December 23, 2023 4:34pm December 06, 2024 1:02pm Start: 12-15-2021 End: 12-01-2022 Losartan 50 mg tablet Discon tinued 25 mg PO TWICE A DAY 180 3 November 27, 2022 10:11am December 01, 2022 6:52pm Start: 12-15-2021 End: 12-01-2022 take 25 mg by mouth twice daily Losartan Discontinued 25 MG PO TWICE A DAY 180 November 27, 2022 10:11am December 01, 2022 6:52pm Start: 10-15-2021 End: 12-15-2021 take 1 tablet by mouth once daily Losartan 50 mg tablet Discontinued 50 mg PO DAILY 90 October 15, 2021 12:03pm December 15, 2021 3:35pm Start: 09-16-2021 End: 10-15-2021 take 2 tablets by mouth once daily Losartan 25 mg tablet Discontinued 50 mg PO DAILY 60 September 16, 2021 4:37pm October 15, 2021 12:00pm Start: 09-16-2021 End: 10-15-2021 take 50 mg by mouth once daily Losartan Discontinued 5 0 MG PO DAILY 60 September 16, 2021 4:37pm October 15, 2021 12:00pm Start: 08-17-2019 End: 09-16-2021 take 1 tablet by mouth once daily Losartan 25 mg tablet Discontinued 25 mg PO DAILY 90 December 14, 2020 12:23pm September 16, 2021 4:39pm meclizine hydrochloride 25 mg oral tablet (10 sources) Antiemetic Start: 09-16-2017 End: 01-13-2019 take 1 tablet by mouth once daily Meclizine 25 mg tablet Discontinued 25 mg PO daily September 16, 2017 1:00am January 13, 2019 1:53pm Start: 04-16-2015 take 1 tablet by vera th once daily MECLIZINE HCL 25 MG TABS One tablet by mouth daily MECLIZINE HCL [id number] Madhav Zapien MD 2 ml metoclopramide 5 mg/ml prefilled syringe (2 sources) Dopamine-2 Receptor Antagonist Start: 04-09-2023 End: 04-09-2023 metoclopramide (Reglan) injection 5 mg 24 hr metoprolol succinate 25 mg extended release oral tablet (20 sources) beta-Adrenergic Richie Start: 09-20-2017 End: 12-01-2022 take 1 tablet by mouth twice daily Metoprolol Succinate 25 mg tablet extended release 24 hr Discontinued 25 mg PO TWICE A DAY 180 3 October 15, 2021 11:59am December 01, 2022 6:49pm Start: 09-16-2017 End: 09-20-2017 take 1 tablet by mouth once daily Metoprolol Succinate (Toprol Xl) 25 mg tablet extended release 24 hr Discontinued 25 mg PO daily September 16, 2017 1:00am September 20, 2017 2:10pm Start: 02-25-2015 End: 01-13-2019 take 1 tablet by mouth every twenty-four hours in the morning, then take 0.5 tablet by mouth in the evening Metoprolol Succinate (Toprol Xl) 25 mg tablet extended release 24 hr Discontinued 25 mg PO .COMPLEX January 13, 2019 1:53pm January 13, 2019 1:57pm 25 mg PO one in the morning and 1/2 in the evening; Start: 02-25-2015 take 1 tablet by vera th once daily TOPROL XL 25 MG [id number] One tablet by mouth daily METOPROLOL SUCCINATE [id number] Diane Hammond RN Start: 02-25-2015 take 1 tablet by vera th in the morning, then take 1 tablet by mouth in the evening TOPROL XL 25 MG [id number] One tablet by mouth in the morning and one half tablet in the evening METOPROLOL SUCCINATE [id number] Madhav Zapien MD Start: 02-25-2015 [facility] 25 MG [id number] One tablet by mouth daily METOPROLOL SUCCINATE [id number] Diane Hammond, RN 2 ml midazolam 1 mg/ml injection (4 sources) Benzodiazepine Start: 04-09-2023 End: 04-09-2023 midazolam (Versed) 2 MG/2ML injection - Pyxis ADS Override Pull Start: 04-09-2023 End: 04-09-2023 midazolam (Versed) injection 2 mg 12 hr naproxen sodium 220 mg / pseudoephedrine hydrochloride 120 mg extended release oral tablet (8 sources) alpha-Adrenergic Agonist, Nonsteroidal Anti-inflammatory Drug Start: 09-16-2017 End: 01-13-2019 take 1 tablet by mouth every twelve hours Naproxen-Pseudoephedrine (Aleve-D Sinus And Cold) 220-120 mg tablet extended release 12 hr Discontinued 2 {tbl} PO TWICE A DAY September 16, 2017 1:00am January 13, 2019 1:54pm Start: 09-16-2017 End: 01-13-2019 take 2 tablets by mouth twice daily, then take 1 tablet by mouth every twelve hours Naproxen-Pseudoephedrine (Aleve-D Sinus And Cold) 220-120 mg tablet extended release 12 hr Discontinued 2 TABLET PO TWICE A DAY September 16, 2017 1:00am January 13, 2019 1:54pm Start: 03-04-2017 take 2 tablets by [facility] twice daily ALEVE-D SINUS & COLD [id number] Two table ts by mouth twice daily PSEUDOEPHEDRINE-NAPROXEN NA [id number] Madhav Zapien MD 2 ml ondansetron 2 mg/ml injection (3 sources) Serotonin-3 Receptor Antagonist Start: 04-09-2023 End: 04-09-2023 ondansetron (Zofran) injection 4 mg Start: 04-09-2023 End: 04-09-2023 ondansetron (Zofran) injecti on oxyCODONE (2 sources) Opioid Agonist Start: 04-09-2023 End: 04-09-2023 oxyCODONE (Roxicodone) immediate release tablet 5 mg prednisoLONE acetate 10 mg/ml ophthalmic suspension (10 sources) Corticosteroid Start: 02-25-2015 PREDNISOLONE A CETATE 1 % SUSP Opthalmic eye gtts as directed PREDNISOLONE ACETATE [id number] Diane Hammond RN Start: 02-21-2015 Start: 02-21-2015 Prednisolone A cetate Active 1 DRP LEFT EYE DAILY February 21, 2015 12:00am predniSONE 10 mg oral tablet (7 sources) Start: 02-26-2022 End: 12-01-2022 take 4 tablets by mouth once daily, then take 3 tablets by mouth once daily, then take 2 tablets by mouth once daily, then take 1 tablet by mouth once daily Prednisone 10 mg tablet Discontinued 10 mg PO DAILY 30 February 26, 2022 12:00am December 01, 2022 6:51pm 4 tablets daily for 3 days, then 3 tablets daily for 3 days, then 2 tablets daily for 3 days, then 1 tablet daily for 3 days 20 ml propofol 10 mg/ml injection (1 source) General Anesthetic Start: 04-09-2023 End: 04-09-2023 Propofol (Diprivan) injection propranolol hydrochloride 80 mg oral tablet (20 sources) beta-Adrenergic Richie Start: 12-01-2022 End: 01-02-2025 take 1 tablet by mouth twice daily Propranolol 80 mg tablet Discontinued 80 mg PO TWICE A DAY 180 3 December 06, 2024 1:01pm January 02, 2025 3:24pm PSEUDOEPHEDRINE-NAPR OXEN NA [id number] (1 source) Start: 03-04-2017 take 2 tablets by mouth twice daily ALEVE-D SINUS & COLD [id number] Two tablets by mouth twice daily PSEUDOEPHEDRINE-NA PROXEN NA [id number] Madhav Zapien MD 5 ml sodium chloride 9 mg/ml injection (12 sources) Start: 04-09-2023 End: 04-09-2023 sodium chloride 0.9 % infusion Start: 04-09-2023 End: 04-09-2023 sodium chloride 0.9% (NS) fl ush 10 mL Problems Active Problems Problem Classification Problem Date Documented Date Episodic/Chronic Acute cerebrovascular disease (7 sources) Ischemic stroke; Translations: [Cerebral infarction, unspecified] Onset: 10-30-2021 12-15-2021 Chronic Allergic reactions (7 sources) Contact dermatitis due to poison ulisses; Translations: [Allergic contact dermatitis due to plants, except food] 02-26-2022 Episodic Cardiac dysrhythmias (20 sources) Sinus tachycardia; Translations: [Paroxysmal atrial fibrillation] Onset: 02-25-2015 03-12-2015 Chronic Deficiency and other anemia (1 source) Anemia, unspecified; Translations: [Anemia, unspecified] Onset: 07-03-2025 Episodic E Codes: Fall (3 sources) Fall; Translations: [Unspecified fall, initial encounter] 02-20-2025 Episodic Essential hypertension (10 sources) Hypertensive disorder; Translations: [Essential (primary) hypertension] Onset: 02-27-2025 09-16-2021 Chronic Fracture of upper limb (4 sources) Closed fracture of humerus; Translations: [Displaced comminuted fracture of shaft of humerus, left arm, initial encounter for closed fracture] Onset: 06-06-2025 02-12-2025 Episodic Osteoarthritis (4 sources) Osteoarthritis of first carpometacarpal joint of left hand; Translations: [Unilateral primary osteoarthritis of first carpometacarpal joint, left hand] Onset: 03-22-2023 04-19-2023 Chronic Other connective tissue disease (2 sources) Tenosynovitis of left radial styloid; Translations: [Radial styloid tenosynovitis [de Quervain]] 04-19-2023 Episodic Other connective tissue disease (2 sources) Radial styloid tenosynovitis [de Quervain]; Translations: [Radial styloid tenosynovitis (de quervain)] Onset: 03-22-2023 Episodic Other nervous system disorders (4 sources) Lesion of ulnar nerve, left upper limb; Translations: [Lesion of ulnar nerve] Onset: 03-22-2023 04-19-2023 Chronic Tiff-; endo-; and myocarditis; cardiomyopathy (except that caused by tuberculosis or sexually transmitted disease) (10 sources) Pericardial effusion; Translations: [Pericardial effusion] Onset: 02-25-2015 02-25-2015 Episodic Residual codes; unclassified (4 sources) History of decompression of ulnar nerve; Translations: [Other specified postprocedural states] 04-09-2023 Episodic Residual codes; unclassified (2 sources) Other specified postprocedural states; Translations: [Other specified postprocedural states] Onset: 04-19-2023 Episodic Skin and subcutaneous tissue infections (3 sources) Abscess of skin and/or subcutaneous tissue; Translations: [Cutaneous abscess, unspecified] 11-04-2023 Episodic Substance-related disorders (3 sources) Tobacco dependence syndrome; Translations: [Nicotine dependence, unspecified, uncomplicated] Onset: 02-25-2015 02-25-2015 Chronic Syncope (10 sources) Syncope and collapse; Translations: [Syncope] Onset: 02-25-2015 02-25-2015 Episodic Past or Other Problems Problem Classification Problem Date Documented Da te Episodic/Chronic Conditions associated with dizziness or vertigo (3 sources) Dizziness and giddiness; Translations: [Dizziness and giddiness] Onset: 02-25-2015 02-25-2015 Episodic Other non-traumatic joint disorders (2 sources) Pain in left shoulder; Translations: [Acute pain of left shoulder] Onset: 02-15-2025 Episodic Unclassified (2 sources) History of pericardial effusion 08-14-2020 Results Test Name Value Interpretation Reference Range Facility Absolute lymphocyte countOrd ered By: Mynor Underwood on 06-18-2025 Lymphocytes Auto (Unsp spec) [#/Vol] 2.43 10*3/uL 0.83-4.51 [facility] Absolute neutrophil countOrd ered By: Mynor Underwood on 06-18-2025 Neutrophils (Bld) [#/Vol] 6.4 10*3/uL 2.0-7.7 [facility] Automated lymphocyte count a s percentage of total leukocytesOrdered By: Mynor Underwood on 06-18-2025 Lymphocytes/100 WBC Auto (Unsp spec) 22.3 % 19-41 [facility] Basophil percentageOrdered B y: Mynor Underwood on 06-18-2025 Basophils/100 WBC (Bld) 1.4 % High 0-1 [facility] CBC W/Diff, Automatedon Absolute Lymph 2.43 X10 3/uL Normal 0.83-4.51 [facility] Comment on above: Performed By: #### L 100.0100 #### [facility] [address] [place], [address] Absolute Neut 6.4 X10 3/uL Normal 2.0-7.7 [facility] Comment on above: Performed By: #### L 100.0100 #### [facility] [address] [place], [address] Basophils/100 WBC (Bld) 1.4 % High 0-1 [facility] Comment on above: Performed By: #### L 100.0100 #### [facility] [address] [place], [address] Eosinophils/100 WBC (Bld) 5.2 % High 0-5 [facility] Comment on above: Performed By: #### L 100.0100 #### [facility] [address] [place], [address] Erythrocyte distribution width (RBC) [Ratio] 13.5 % Normal 11.6-14.6 [facility] Comment on above: Performed By: #### L 100.0100 #### [facility] [address] [place], [address] Hematocrit (Bld) [Volume fraction] 32.4 % Low 37-47 [facility] Comment on above: Performed By: #### L 100.0100 #### [facility] [address] [place], [address] Hemoglobin (Bld) [Mass/Vol] 10.4 g/dL Low 12.0-15.0 [facility] Comment on above: Performed By: #### L 100.0100 #### [facility] [address] [place], [address] IG% 1.100 High 0.0-0.9 [facility] Comment on above: Result Comment: IG% - Immature Granulocytes (promyelocytes, myelocytes and metamyelocytes) > 1% indicates that a LEFT SHIFT is Present. Performed By: #### L 100.0100 #### [facility] [address] [place], [address] Lymphocytes/100 WBC (Bld) 22.3 % Normal 19-41 [facility] Comment on above: Performed By: #### L 100.0100 #### [facility] [address] [place], [address] MCH (RBC) [Entitic mass] 32.4 pg High 27.0-32.0 [facility] Comment on above: Performed By: #### L 100.0100 #### [facility] [address] [place], [address] MCHC (RBC) [Mass/Vol] 32.1 g/dL Normal 32-36 [facility] Comment on above: Performed By: #### L 100.0100 #### [facility] [address] [place], [address] MCV (RBC) [Entitic vol] 100.9 fL High 81-99 [facility] Comment on above: Performed By: #### L 100.0100 #### [facility] [address] [place], [address] Monocytes/100 WBC (Bld) 11.0 % High 0-10 [facility] Comment on above: Performed By: #### L 100.0100 #### [facility] [address] [place], [address] Neutrophils/100 WBC (Bld) 59.0 % Normal 47-70 [facility] Comment on above: Performed By: #### L 100.0100 #### [facility] [address] [place], [address] Nucleated RBC (Bld) [#/Vol] 0 10*3/uL Normal 0-5 [facility] Comment on above: Performed By: #### L 100.0100 #### [facility] [address] [place], [address] Platelet mean volume (Bld) [Entitic vol] 10.4 fL Normal 6.2-12.0 [facility] Comment on above: Performed By: #### L 100.0100 #### [facility] [address] [place], [address] Platelets (Bld) [#/Vol] 615 10*3/uL High 150-450 [facility] Comment on above: Performed By: #### L 100.0100 #### [facility] Laboratory [address] [place], [address] RBC (Bld) [#/Vol] 3.21 10*6/uL Low 4.2-5.4 [facility] Comment on above: Performed By: #### L 100.0100 #### [facility] [address] [facility] [place], [address] RDW SD 50.6 fl High 35.1-43.9 [facility] Comment on above: Performed By: #### L 100.0100 #### [facility] [address] [place], [address] WBC (Bld) [#/Vol] 10.9 10*3/uL Normal 4.4-11.0 [facility] Comment on above: Performed By: #### L 100.0100 #### [facility] [address] [facility] [place], [address] Eosinophil percentageOrdered By: Mynor Underwood on 06-18-2025 Eosinophils/100 WBC (Bld) 5.2 % High 0-5 [facility] Erythrocyte distribution wid th ratioOrdered By: Mynor Underwood on 06-18-2025 Erythrocyte distribution width (RBC) [Ratio] 13.5 % 11.6-14.6 [facility] Erythrocyte distribution wid th standard deviationOrdered By: Mynor Underwood on 06-18-2025 Erythrocyte distribution width (RBC) [Ratio] 50.6 fl High 35.1-43.9 [facility] Hematocrit Auto (Bld) [Volum e fraction]Ordered By: Mynor Underwood on 06-18-2025 Hematocrit (Bld) [Volume fraction] 32.4 % Low 37-47 [facility] Hemoglobin measurementOrdere d By: Mynor Underwood on 06-18-2025 Hemoglobin (Bld) [Mass/Vol] 10.4 g/dL Low 12.0-15.0 [facility] Immature granulocytes/100 WB C Auto (Bld)Ordered By: Mynor Underwood on 06-18-2025 Immature granulocytes/100 WBC (Bld) 1.100 % High 0.0-0.9 [facility] Comment on above: IG% - Immature Granu locytes (promyelocytes, myelocytes and metamyelocytes) > 1% indicates that a LEFT SHIFT is Present. MCV (mean corpuscular volume ) determinationOrdered By: Mynor Underwood on 06-18-2025 MCV (RBC) [Entitic vol] 100.9 fL High 81-99 [facility] Mean corpuscular hemoglobin (MCH) determinationOrdered By: Mynor Underwood on 06-18-2025 MCH (RBC) [Entitic mass] 32.4 pg High 27.0-32.0 [facility] Mean corpuscular hemoglobin concentration (MCHC) determinationOrdered By: Mynor Underwood on 06-18-2025 MCHC (RBC) [Mass/Vol] 32.1 g/dL 32-36 [facility] Mean platelet volume determi nationOrdered By: Mynor Underwood on 06-18-2025 Platelet mean volume (Bld) [Entitic vol] 10.4 fL 6.2-12.0 [facility] Monocyte percentageOrdered B y: Mynor Underwood on 06-18-2025 Monocytes/100 WBC (Bld) 11.0 % High 0-10 [facility] Neutrophil percentageOrdered By: Mynor Underwood on 06-18-2025 Neutrophils/100 WBC (Bld) 59.0 % 47-70 [facility] Nucleated red blood cell per centageOrdered By: Mynor Underwood on 06-18-2025 Nucleated RBC/100 WBC (Bld) [Ratio] 0 % 0-5 [facility] Platelet countOrdered By: Rose Marie Underwood on 06-18-2025 Platelets (Bld) [#/Vol] 615 10*3/uL High 150-450 [facility] RBC Auto (Bld) [#/Vol]Ordere d By: Mynor Underwood on 06-18-2025 RBC (Bld) [#/Vol] 3.21 10*6/uL Low 4.2-5.4 [facility] White blood cell (WBC) count Ordered By: Mynor Underwood on 06-18-2025 WBC (Bld) [#/Vol] 10.9 10*3/uL 4.4-11.0 [facility] Basic metabolic 2000 panelon 06-07-2025 Anion gap [Moles/Vol] 7 mmol/L Normal 5-16 [facility] Comment on above: Order Comment: Speci men Type: BLOOD SPECIMENOrdering Facility: [facility] Address: [address] [place] [address] Performed By: #### 2 432-2, ####[facility] LABORATORYCLIA [id number] [place] [address] [place] Calcium [Mass/Vol] 7.8 mg/dL Low 8.5-10.5 [facility] Comment on above: Order Comment: Speci men Type: BLOOD SPECIMENOrdering Facility: [facility] Address: [address] [place] [address] Performed By: #### 2 4321-2, ####[facility] LABORATORYCLIA [id number] [place] [address] [place] Chloride [Moles/Vol] 110 mmol/L High 98-107 [facility] Comment on above: Order Comment: Speci men Type: BLOOD SPECIMENOrdering Facility: [facility] Address: [address] [place] [address] Performed By: #### 2 432-2, ####[facility] LABORATORYCLIA [id number] [place] [address] [place] CO2 [Moles/Vol] 22 mmol/L Normal 21-32 [facility] Comment on above: Order Comment: Speci men Type: BLOOD SPECIMENOrdering Facility: [facility] Address: [address] [place] [address] Performed By: #### 2 432-, ####[facility] LABORATORYCLIA [id number] [place] [id number] [place] Creatinine [Mass/Vol] 1.01 mg/dL High 0.51-0.95 [facility] Comment on above: Order Comment: Speci men Type: BLOOD SPECIMENOrdering Facility: [facility] Address: [address] [place] [address] Result Comment: Nisreen ents receiving either N-Acetylcysteine (NAC) or Metamizole prior to venipuncture, may have falsely depressed results. Performed By: #### 2 432-, ####[facility] LABORATORYCLIA [id number] [place] [id number] [place] eGFRcr SerPlBld CKD-EPI 2020 59 mL/min/1.73m??? Low >=60 [facility] Comment on above: Order Comment: Speci men Type: BLOOD SPECIMENOrdering Facility: [facility] Address: [address] [place] [address] Result Comment: Minnie mated Glomerular Filtration Rate (eGFR) is calculated using the 2020 CKD-EPI creatinine equation. This equation utilizes serum creatinine, sex, and age as parameters. The creatinine assay has traceable calibration to isotope dilution-mass spectrometry. Refer to KDIGO guidelines for clinical interpretation. In patients with unstable renal function, e.g. those with acute kidney injury, the eGFR may not accurately reflect actual GFR. Performed By: #### 2 4321-2, ####[facility] LABORATORYCLIA [id number] [place] [id number] [place] Glucose [Mass/Vol] 144 mg/dL High 70-100 [facility] Comment on above: Order Comment: Speci kanwal Type: BLOOD SPECIMENOrdering Facility: [facility] Address: [address] [place] [address] Result Comment: The [place] [employer] (ADA) provides guidance for cutoff values for fasting glucose and random glucose. The ADA defines fasting as no caloric intake for at least 8 hours. Fasting plasma glucose results between 100 to 125 mg/dL indicate increased risk for diabetes (prediabetes). Fasting plasma glucose results greater than or equal to 126 mg/dL meet the criteria for diagnosis of diabetes. In the absence of unequivocal hyperglycemia, results should be confirmed by repeat testing. In a patient with classic symptoms of hyperglycemia or hyperglycemic crisis, random plasma glucose results greater than or equal to 200 mg/dL meet the criteria for diagnosis of diabetes. Reference: Standards of Medical Care in Diabetes 2016, [place] [employer]. Diabetes Care. 2016.39(Suppl 1). Results may be falsely elevated after the administration of Sulfapyridine. Results may be falsely depressed after the administration of Sulfasalazine. Performed By: #### 2 432-2, ####[facility] LABORATORYCLIA [id number] [place] [address] [place] Potassium [Moles/Vol] 4.2 mmol/L Normal 3.5-5.1 [facility] Comment on above: Order Comment: Speci men Type: BLOOD SPECIMENOrdering Facility: [facility] Address: [address] [place] [address] Performed By: #### 2 4320-11, ####[facility] LABORATORYCLIA [id number] [place] [address] [place] Sodium [Moles/Vol] 139 mmol/L Normal 136-145 [facility] Comment on above: Order Comment: Speci men Type: BLOOD SPECIMENOrdering Facility: [facility] Address: [address] [place] [address] Performed By: #### 2 4322, ####[facility] LABORATORYCLIA [id number] [place] [address] [place] Urea nitrogen [Mass/Vol] 12 mg/dL Normal 7-26 [facility] Comment on above: Order Comment: Speci men Type: BLOOD SPECIMENOrdering Facility: [facility] Address: [address] [place] [address] Performed By: #### 2 4320-2, 32668-0 ####[facility] LABORATORYCLIA [id number] [place] [id number] [facility] CBC panel Auto (Bld)on 06-07 Erythrocyte distribution width (RBC) [Ratio] 13.8 % Normal 11.5-15.0 [facility] Comment on above: Order Comment: Speci men Type: BLOOD SPECIMENOrdering Facility: [facility] Address: [address] [place] [address] Performed By: #### 5 8410-2 ####[facility] LABORATORYCLIA [id number] [address] Hematocrit (Bld) [Volume fraction] 29.5 % Low 36.0-46.0 [facility] Comment on above: Order Comment: Speci men Type: BLOOD SPECIMENOrdering Facility: [facility] Address: [address] [place] [address] Performed By: #### 5 8410-2 ####[facility] LABORATORYCLIA [id number] [address] [place] Hemoglobin (Bld) [Mass/Vol] 10.0 g/dL Low 11.5-15.5 [facility] Comment on above: Order Comment: Speci men Type: BLOOD SPECIMENOrdering Facility: [facility] Address: [address] [place] [address] Performed By: #### 5 8410-2 ####[facility] LABORATORYCLIA [id number] [address] MCH (RBC) [Entitic mass] 34.0 pg Normal 26.0-34.0 [facility] Comment on above: Order Comment: Speci men Type: BLOOD SPECIMENOrdering Facility: [facility] Address: [address] [place] [address] Performed By: #### 5 8410-2 ####[facility] LABORATORYCLIA [id number] [address] [place] MCHC (RBC) [Mass/Vol] 33.9 g/dL Normal 30.5-36.0 [facility] Comment on above: Order Comment: Speci men Type: BLOOD SPECIMENOrdering Facility: [facility] Address: [address] [place] [address] Performed By: #### 5 8410-2 ####[facility] LABORATORYCLIA [id number] [address] [place] MCV (RBC) [Entitic vol] 100.3 fL High 80.0-100.0 [facility] Comment on above: Order Comment: Speci men Type: BLOOD SPECIMENOrdering Facility: [facility] Address: [address] [place] [address] Performed By: #### 5 8410-2 ####[facility] LABORATORYCLIA [id number] [address] [place] Nucleated RBC (Bld) [#/Vol] 10*3/uL Normal <0.01 [facility] Comment on above: Order Comment: Speci men Type: BLOOD SPECIMENOrdering Facility: [facility] Address: [address] [place] [address] Performed By: #### 5 8410-2 ####[facility] LABORATORYCLIA [id number] [address] [place] Platelet mean volume (Bld) [Entitic vol] 10.2 fL Normal 9.0-12.7 [facility] Comment on above: Order Comment: Speci men Type: BLOOD SPECIMENOrdering Facility: [facility] Address: [address] [place] [address] Performed By: #### 5 8410-2 ####[facility] LABORATORYCLIA [id number] [place] [address] [place] Platelets (Bld) [#/Vol] 275 10*3/uL Normal 150-400 [facility] Comment on above: Order Comment: Speci men Type: BLOOD SPECIMENOrdering Facility: [facility] Address: [address] [place] [address] Performed By: #### 5 8410-2 ####[facility] LABORATORYCLIA [id number] [place] [address] [place] RBC (Bld) [#/Vol] 2.94 10*6/uL Low 3.90-5.20 [facility] Comment on above: Order Comment: Danny schofield Type: BLOOD SPECIMENOrdering Facility: [facility] Address: [address] [place] [address] Performed By: #### 5 8410-2 ####[facility] LABORATORYCLIA [id number] [address] OF [facility] WBC (Bld) [#/Vol] 16.62 10*3/uL High 3.70-11.00 [facility] Comment on above: Order Comment: Danny schofield Type: BLOOD SPECIMENOrdering Facility: [facility] Address: [address] [place] [address] Performed By: #### 5 8410-2 ####[facility] LABORATORYCLIA [id number] [address] CNDSon 06-07-2025 CNDS HNO ID: [id number] Author: ROSAMARIA ZHONG MD Service: Orthopaedic Surgery Author Type: Nurse Practitioner Type: Discharge Summary Filed: 06/16/2025 11:14 Note Text: Attestation signed by Rosamaria Zhong MD at 06/16/2025 11:14 AM Agree with discharge summary. ERG. DISCHARGE SUMMARY PATIENT NAME: Reji Foley ADMISSION DATE: 06/06/2025 DISCHARGE DATE: 06/07/2025 ATTENDING PHYSICIAN: Rosamaria Zhong MD Code Status: Prior Highest Readmission Risk Score: 6 The 30 day readmissions risk score is derived from an internally validated risk model which evaluates patient level characteristics, utilization history, medication orders and lab results up until the day of discharge. Patients with a score of 39 or above are considered highest risk for readmission. Specific patient level drivers will be listed at the bottom of the summary. 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 Zhong. DIAGNOSIS: Principal Problem: Unspecified fracture of upper end of left humerus, initial encounter for closed fracture (POA: Yes) Active Problems: Insomnia, unspecified (POA: Yes) Hypertension (POA: Yes) HLD (hyperlipidemia) (POA: Yes) GERD (gastroesophageal reflux disease) (POA: Yes) Nicotine use disorder (POA: Yes) Anxiety and depression (POA: Yes) Resolved Problems: * No resolved hospital problems. * OPERATIONS DURING HOSPITALIZATION: Repair nonunion left comminuted proximal humerus fracture malunion on 06/06/[address] Zhong. 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 Zhong. The patient tolerated the procedure well and had no complications during the surgery or the subsequent recovery from anesthesia. They were then taken to the orthopedic unit for further recovery, physical therapy, and occupational therapy. During her stay she did quite well, worked with PT and OT, Nonweightbearing left arm, no lifting with the left arm. Sling should be used for support. She can do range of motion of the elbow, passive range of motion to the shoulder, pendulum exercises. Medically she was stable, followed by internal medicine consult. She was able to discharge home in stable condition postop day 1, 06/07/2025. She will follow-up in the office with Dr. Zhong in approximately 1 week PATIENT CONDITION AT DISCHARGE: Stable DISCHARGE DISPOSITION: Home with Self Care Pertinent physical findings on discharge were that the patient was alert, no acute distress, no shortness breath or chest pain, pain was under control, surgical dressing was dry and intact, and they were in stable condition. WOUND/SURGICAL SITE CARE: Wound/Surgical Site Care Other: Keep surgical dressing in place until follow-up visit. If loose wet or soiled, can change with dry gauze and change as needed. May shower. DIET: Resume your pre-hospital diet ACTIVITY: Nonweightbearing left arm, no lifting with the left arm. Sling should be used for support. She can do range of motion of the elbow, passive range of motion to the shoulder, pendulum exercises. ALLERGIES No Known Allergies DISCHARGE MEDICATION: Medication List START taking these medications oxyCODONE IR 5 mg immediate release tablet Commonly known as: ROXICODONE Take 1 tablet by mouth every 6 hours as needed for up to 7 days. CONTINUE taking these medications ACYCLOVIR PO aspirin 81 mg Cap atorvastatin 40 mg tablet Commonly known as: LIPITOR CALCIUM 600 WITH VITAMIN D3 600 mg-5 mcg (200 unit) Tab Generic drug: calcium carbonate 600 mg-cholecalciferol 200 units CENTRUM SILVER PO escitalopram oxalate 20 mg tablet Commonly known as: LEXAPRO famotidine 20 mg tablet Commonly known as: PEPCID Take 1 tablet by mouth twice daily. losartan 50 mg tablet Commonly known as: COZAAR NORVASC PO PREDNISOL OPHTHALMIC propranolol 80 mg tablet Commonly known as: INDERAL Where to Get Your Medications These medications were sent to [facility]- [id number] [place] [address] - [address] [facility] - [phone] [facility] [place] [facility] [id number] [facility] [address] oxyCODONE IR 5 mg immediate release tablet FUTURE APPOINTMENTS: Follow Up Appointments Follow-up Appointment Please call to arrange to see Dr. Zhong in approximately 1 week When: In 1 week Patient/Parents to call for appointment?: Yes Rosamaria Zhong MD [phone] [facility] (more content not included)... [facility] CONSULT PROGon 06-07-2025 CONSULT PROG HNO ID: [id number] Author: ANGEL AUGUSTIN PA Service: Hospital Medicine Author Type: Physician Outreach Worker Type: Consult Progress Note Filed: 06/07/2025 12:24 Note Text: DEPARTMENT OF HOSPITAL MEDICINE CONSULT PROGRESS NOTE SERVICE DATE: 06/07/2025 SERVICE TIME: 9:13 AM Hospital Medicine/Primary: ROSE MARIE Krishnan INTERVAL HPI: Pt is a 74 yo female with PMHx of HTN, HLD, CVA w/ residual deficit, GERD presenting for repair of a nonunion L comminuted proximal humerus fracture with Dr. Zhong 06/06. Stephanie is consulted for medical management. Subjective : Pain is fairly well-controlled postoperatively. Has been tolerating a diet well without nausea, vomiting, or abdominal pain. Denies CP, Shortness of Breath, dizziness/lightheade dness. Eager to discharge. No significant overnight events per RN. Review of Systems Respiratory: Negative for shortness of breath. Cardiovascular: Negative for chest pain. Gastrointestinal: Negative for abdominal pain, nausea and vomiting. Musculoskeletal: Positive for arthralgias. Neurological: Negative for dizziness and light-headedness. MEDICATIONS: Reviewed Objective PHYSICAL EXAM: BP 101/54 Pulse 81 Temp (Src) 97.8 (Oral) Resp 18 Ht 5' 0 (1.52m) Wt 136 lb 11 oz (62.0kg) SpO2 92% BMI 26.69 kg/(m2). O2 Therapy: Nasal Cannula Physical Exam Constitutional: General: She is not in acute distress. Appearance: She is not ill-appearing. Comments: Pleasant and cooperative elderly female sitting up in chair, NAD. Cardiovascular: Rate and Rhythm: Normal rate and regular rhythm. Heart sounds: Normal heart sounds. Pulmonary: Effort: Pulmonary effort is normal. Comments: Diminished breath sounds bilaterally Abdominal: General: Bowel sounds are normal. There is no distension. Palpations: Abdomen is soft. Tenderness: There is no abdominal tenderness. Musculoskeletal: Comments: Motor and sensory function intact to the distal LUE LUE in sling Neurological: Mental Status: She is alert. Psychiatric: Mood and Affect: Mood normal. Behavior: Behavior normal. DATA: Diagnostic tests reviewed for today's visit: Most recent labs and imaging results. CBC, Coags, BMP, Mg, Phos Recent Labs 06/07/25 0617 06/06/25 0847 06/06/25 0621 WBC 16.62* 7.22 -- HB 10.0* 8.5* -- HCT 29.5* 25.7* -- PLT 275 213 -- NA 139 -- 137 K 4.2 -- 4.3 CHLOR 110* -- 103 CO2 22 -- 22 BUN 12 -- 16 CREAT 1.01* -- 1.05* GLUC 144* -- 122* CA 7.8* -- 9.6 MG 1.6 -- -- Liver Function, Amylase, AND Lipase Recent Labs 06/06/25 0907 06/06/25 0851 LACT 1.1 0.6 Cardiac Enzymes Assessment and Plan: #HTN #HLD #Hx CVA with Residual Deficit - Continue home amlodipine 5mg daily, losartan 50mg daily, propranolol 80mg BID, lipitor 40mg daily. - Resume home ASA when okay per surgery #GERD - Continue protonix 40mg daily. #Tobacco Abuse- Continue to encourage cessation. Continue nicotine patches . #Mood d/o- Continue home lexapro 20mg daily. #L Humeral Fracture - s/p repair of a nonunion L comminuted proximal humerus fracture with Dr. Zhong 06/06 - Management including DVT prophylaxis and pain management per surgery primary. - Monitor daily CBC for post-op abnormalities including leukocytosis and anemia while admitted. - Monitor BMP daily for toxicity/renal dysfunction while on IV Morphine for pain control. #Leukocytosis- WBC 16, suspect stress-induced postop. Check CBC daily while admitted. Medication and Non-Pharmacologic VTE Prophylaxis/Anticoag ulants 06/06/25 1545 vte current anticoag therapy ([place], [place]) 06/06/25 1545 pneumatic compression sleeve(s) ([place], [place]) VTE Prophylaxis: Other - Management including DVT prophylaxis and pain management per surgery primary. Code Status: Full Code Disposition: Provided counseling/patient education regarding acute conditions, exacerbation of chronic conditions, management of chronic conditions Plan of care discussed with: discussed with RN, discussed with TCC/SW, patient and family updated, I personally examined the patient, I personally reviewed chart data, labs, radiology reports SIGNATURE: ROSE MARIE Krishnan PATIENT NAME: Reji Foley DATE: June 07, 2025 TIME: 9:13 AM PAGER/CONTACT #: DIANE 1 [facility] Magnesium SerPl-mCncon 06-07 Magnesium [Mass/Vol] 1.6 mg/dL Normal 1.6-2.6 [facility] Comment on above: Order Comment: Speci men Type: BLOOD SPECIMENOrdering Facility: [facility] Address: [address] [place] [id number] Performed By: #### 2 4321-2, 60573-9 ####[facility] LABORATORYCLIA [id number] [place] [id number] [facility] THERAPY NTon 06-07-2025 THERAPY NT HNO ID: [id number] Author: RITCHIE DEE, PT Service: Physical Therapy Author Type: Physical Therapist Type: Therapy (PT/OT/Speech/Resp) Filed: 06/07/2025 11:10 Note Text: Physical Therapy Evaluation Summary SERVICE DATE: 06/07/2025 SERVICE TIME: 925 to 951 ROOM: [place] [address] PT 6 Clicks Score: 24 DISCHARGE RECOMMENDATIONS Outpatient PT Recommended Discharge Disposition Comments: when appropriate per MD Anticipated Discharge Needs: Physical Assist at Home Physical Assist at Home for: Cleaning, Laundry, Meals, Self Care ASSESSMENT Response to Therapy Interventions: Good Participation in Activities Pt tolerated PT eval well. Pt completed functional mobility skills with supervision. Anticipate pt return home with outpatient PT upon discharge. PRECAUTIONS Sling, Weight Bearing Restrictions, Shoulder Precautions no L shoulder ROM, L wrist and elbow ROM allowed. Left Upper Extremity Weight Bearing Status: NWB Shoulder Precautions: Forward elevation limitation Shoulder Forward Elevation Limited To: 0 CURRENT HOSPITAL COURSE S/p repair nonunion left comminuted proximal humerus malunion on 06/[address] Zhong. Per pt fell in February 2025 by tripping over her robe resulting in proxial humerus fx. Relevant Past Medical History: HTN, anxiety and depression, hyperlipidemia, GERD. HOME LIVING Patient Lives With: Self/Alone Assistance Available: PRN, Other: See Comment Comments: daughter and grandchildren Entry To Home: Stairs Number Of Stairs Into Home: 2 Number Of Stairs To Bed/Bath: 0 Tub/Shower Type: WIS Laundry: FFSU Equipment Owned: Shower Chair, Grab Bars- Shower PRIOR FUNCTIONAL LEVEL Within Functional Limits pt reports independence with ADLs, IADLs, family drives; pt notes one fall in February resulting in initialy L humeral fx. SUBJECTIVE THERAPY DIAGNOSIS Decreased activities of daily living (ADL) TREATMENT INTERVENTIONS Evaluation, Therapeutic Activity (87937) Timed Code Treatment (minutes): 9 Skilled Treatment Time (minutes): 24 TRAINING AND EDUCATION PROVIDED Anatomy and Impact on Deficits, Assistive Device Use, Bed Mobility, Benefits of In-Hospital Mobility, Discharge Planning, Equipment, Positioning, Precautions/Restrict ions, Role of Physical Therapy, Stair Navigation, Standing Balance, Transfers, Expected Functional Level THERAPEUTIC SKILLS USED Cues for Sequencing/Proper Technique for Activity, Cuing Verbal, Movement Facilitation FUNCTIONAL STATUS Bed Mobility Supine To Sit: Supervision Sit to Supine: Supervision Scooting: Supervision Transfers Sit To Stand: Supervision Stand To Sit: Supervision Bed to Chair Supervision Gait Supervision, Additional Information Ambulated 50 ft with SPC in RUE however pt did not need the assistance so finished ambulating 150 without an AD. No LOB noted. Gait Device: None Gait Distance (feet): 200 Stairs Supervision Stairs Device: Rail Number of Stairs: 5 GOALS Patient will demonstrate understanding of importance of mobility during hospital stay and resolve all functional needs identified. Rehab Potential: Good Good Rehab Potential Due To: Good motivation, Good support system/ coping skills, Current objective clinical presentation ACUTE CARE TREATMENT PLAN PT Frequency: Discontinue Therapy Services Reasons Therapy Services Discontinued: No skilled needs Treatment Interventions: Education, Self Care / Home Management, Functional Mobility Training SIGNATURE: Ritchie Dee PT PATIENT NAME: Reji Foley DATE: June 07, 2025 TIME: 11:10 AM Normal [facility] THERAPY NT HNO ID: [id number] Author: JHON KURTZ OTR/L Service: Occupational Therapy Author Type: Occupational Therapist Type: Therapy (PT/OT/Speech/Resp) Filed: 06/07/2025 10:42 Note Text: Occupational Therapy Evaluation Summary SERVICE DATE: 06/07/2025 SERVICE TIME: 0955 to 1037 ROOM: [id number] OT 6 Clicks Score: 24 Total Joint Replacement Discharge Readiness: Cleared from Occupational Therapy DISCHARGE RECOMMENDATIONS Home Recommended Discharge Disposition Comments: pt presents at mod independent level with ADLs, edu on precautions impacting ADLs at home, pt demos understanding. pt with no further skilled OT needs Anticipated Discharge Needs: Physical Assist at Home Physical Assist at Home for: Cleaning, Laundry, Meals, Self Care ASSESSMENT Response to Therapy Interventions: Good Participation in Activities, Pain PRECAUTIONS Sling, Weight Bearing Restrictions, Shoulder Precautions no L shoulder ROM, L wrist and elbow ROM allowed. Left Upper Extremity Weight Bearing Status: NWB Shoulder Precautions: Forward elevation limitation Shoulder Forward Elevation Limited To: 0 CURRENT HOSPITAL COURSE S/p repair nonunion left comminuted proximal humerus malunion on 06/[address] Zhong. Per pt fell in February 2025 by tripping over her robe resulting in proxial humerus fx. Relevant Past Medical History: HTN, anxiety and depression, hyperlipidemia, GERD. HOME LIVING Patient Lives With: Self/Alone Assistance Available: PRN, Other: See Comment Comments: daughter and grandchildren Entry To Home: Stairs Number Of Stairs Into Home: 2 Number Of Stairs To Bed/Bath: 0 Tub/Shower Type: WIS Laundry: FFSU Equipment Owned: Shower Chair, Grab Bars- Shower PRIOR FUNCTIONAL LEVEL Within Functional Limits pt reports independence with ADLs, IADLs, family drives; pt notes one fall in February resulting in initialy L humeral fx. Baseline Cognition: Oriented to self, Oriented to place, Oriented to time, Oriented to situation SUBJECTIVE COGNITION Responsiveness: Alert Follows Commands: 3-step Commands THERAPY DIAGNOSIS Decreased activities of daily living (ADL) TREATMENT INTERVENTIONS Evaluation, Self Assisted Management (84825) Timed Code Treatment (minutes): 27 Skilled Treatment Time (minutes): 42 TRAINING AND EDUCATION PROVIDED Activity Adaptation/Compensat ory Strategies, Bed Mobility, Benefits of In-Hospital Mobility, Discharge Planning, Edema Management, Energy Conservation, Functional Mobility Involving ADLs, Grooming Tasks, Insight into Deficits, Lower Extremity Bathing, Lower Extremity Dressing THERAPEUTIC SKILLS USED Activity Dosing, Cues for Sequencing/Proper Technique for Activity FUNCTIONAL STATUS Activities of Daily Living Assist Level Additional Information Feeding Modified Independent Grooming Modified Independent Bathing Upper Body Modified Independent Bathing Lower Body Modified Independent Dressing Upper Body Modified Independent Dressing Lower Body Modified Independent Toileting Modified Independent Mobility Assist Level Additional Information Bed Mobility Sit to Stand Independent Stand to Sit Independent Bed to Chair Toilet/Commode Shower Functional Mobility Independent, Additional Information Functional Mobility Device: None in home funcitonal distances ~10ft x2 GOALS Patient will demonstrate understanding of importance of mobility during hospital stay and resolve all self-care, cognitive and/or coping needs identified. Rehab Potential: Excellent Excellent Rehab Potential Due To: Good motivation ACUTE CARE TREATMENT PLAN OT Frequency: Discontinue Therapy Services Reasons Therapy Services Discontinued: Goals met Treatment Interventions: Education, Self Care/Home Management SIGNATURE: NERIS Lazo/Alex PATIENT NAME: Reji Foley DATE: June 07, 2025 TIME: 10:42 AM [facility] ANES POSTPROC EVALon 025 ANES POSTPROC EVAL HNO ID: [id number] Author: ELIOT MALIK DO Service: Anesthesiology Author Type: Anesthesiologist Type: Anesthesia Postprocedure Evaluation Filed: 06/06/2025 12:17 Note Text: POST ANESTHESIA EVALUATION NOTE : 1950 Procedure Summary Date: 06/06/25 Room / Location: OR 14 / OR Anesthesia Start: 751 Anesthesia Stop: 1024 Procedure: REPAIR HUMERUS MALUNION W/O GRAFT (Left: Arm) Diagnosis: Unspecified fracture of upper end of left humerus, initial encounter for closed fracture (Unspecified fracture of upper end of left humerus, initial encounter for closed fracture [S42.A]) Surgeons: Rosamaria Zhong MD Responsible Provider: Eliot Malik DO Anesthesia Type: general ASA Status: 3 Anesthesia Type: general Airway Type: ETT Last Vitals Vitals Value Taken Time BP 99/52 06/06/25 12:00 Temp 36.7 ?C (98.1 ?F) 06/06/25 10:22 Pulse 71 06/06/25 12:14 Resp 16 06/06/25 10:45 SpO2 94 % 06/06/25 12:14 Vitals shown include unfiled device data. Post Anesthesia Patient Status Patient Evaluation: PACU. PACU/ICU Patient Condition: stable. Anticipated Disposition: inpatient floor planned admission. Neurological Status: aware and responsive. Pulmonary Status: breathing comfortably on room air Airway Control: returned to baseline unsupported. Cardiovascular Status: stable. Pain Management: clinically adequate - multimodal analgesia pain management approach Postoperative Hydration: acceptable. Intraoperative Events: no significant anesthesia events Recommendation: continue current plan of care. Anesthesia Observations No Documentation SIGNATURE: Eliot Malik DO PATIENT NAME: Reji Foley DATE: June 06, 2025 TIME: 12:17 PM CSN: [id number] [facility] ANES PRE-OPon 06-06-2025 ANES PRE-OP HNO ID: [id number] Author: ELIOT MALIK DO Service: Anesthesiology Author Type: Anesthesiologist Type: Anesthesia Preprocedure Evaluation Filed: 06/06/2025 06:58 Note Text: ANESTHESIOLOGY DAY OF SURGERY NOTE : 1950 Procedure Information Date/Time: 06/06/25 0730 Procedure: REPAIR HUMERUS MALUNION W/O GRAFT (Left: Arm) Location: MR OR 14 / MR OR Surgeons: Rosamaria Zhong MD Estimated body mass index is 26.69 kg/m? as calculated from the following: Height as of this encounter: 152.4 cm (5'). Weight as of this encounter: 62 kg (136 lb 11 oz). Most recent hematocrit and potassium results: No results found for this basename: HCT,HEMATOCRIT,K,POT ASSIUM Relevant Problems CARDIO (+) Unspecified essential hypertension -RENAL (+) Calculus of kidney Patient is a 74 year old female with a a past medical history of HTN, and left humerus fracture presenting for repair of humerus fracture I - PHYSICAL EVALUATION AIRWAY Patient intubated: No. Tracheostomy tube not present Mallampati: II. TM distance: >3 FB. Neck ROM: full ROM without neurological symptoms. Mouth openin FB. Short neck: no. Thick neck: no DENTAL Dental findings: implants. Dentures, upper: complete. Additional exam findings: no II - ANESTHESIA PLAN ASA Score: 3 Anesthetic Plan: general Airway type: ETT The patient is not a current smoker. NPO Status: adequate Monitoring Plan Monitoring plan: Standard ASA. Post Procedure Analgesic Plan Postoperative analgesic plan: parenteral or oral opioids and multimodal analgesia. Informed Consent Anesthetic risks, benefits, alternatives, personnel and consent discussed: yes. Patient / Responsible Libertarian agrees to proceed: yes Patient / Surrogate agrees to blood products: yes DNR status not reviewed with patient and/or family prior to surgery. Significant changes in the patient condition since the History and Physical, not otherwise documented in primary service progress note: no. Potential Anesthesia issues that may suggest increased risk of complications or contraindication to planned procedure: none. Discussed the possibility of lip / dental damage: yes Vitals Value Taken Time BP 115/58 06/06/25 06:53 Pulse 68 06/06/25 06:55 Resp 20 06/06/25 06:53 Temp 36.7 ?C (98 ?F) 06/06/25 06:12 SpO2 94 % 06/06/25 06:55 Vitals shown include unfiled device data. Facility-Administere d Medications as of 06/06/2025 Medication Dose Route Frequency lidocaine (PF) 10 mg/mL (1 %) 2 mg injection (XYLOCAINE) 0.2 mL INTRADERMAL PRN NaCl 0.9% iv infusion 30 mL/hr INTRAVENOUS CONTINUOUS NaCl 0.9% iv flush bag 20 mL INTRAVENOUS PRN ceFAZolin iv piggyback 2 g in D5W (iso-osmotic) 100 mL (ANCEF) 2 g INTRAVENOUS ONCE midazolam (PF) 2 mg injection (VERSED) 2 mg INTRAVENOUS ONCE Outpatient Medications as of 06/06/2025 Medication Sig multivit-min/folic acid/lutein (CENTRUM SILVER PO) Take by mouth. Instructed to stop pre op prednisolone sodium phosphate (PREDNISOL OPHTHALMIC) Use in eyes. aspirin 81 mg cap Take by mouth once daily. Quit 1 week pre-op (takes for hx of stroke, okayed by PCP propranolol (INDERAL) 80 mg tablet Take 80 mg by mouth two times a day. losartan (COZAAR) 50 mg tablet Take 50 mg by mouth once daily. escitalopram oxalate (LEXAPRO) 20 mg tablet Take 20 mg by mouth once daily. atorvastatin (LIPITOR) 40 mg tablet Take 40 mg by mouth once daily. amlodipine besylate (NORVASC PO) Take 5 mg by mouth once daily. ACYCLOVIR PO Take 400 mg by mouth two times a day. Takes for eyes famotidine 20 mg ORAL tablet Take 1 tablet by mouth twice daily. calcium carbonate/vitamin d3(CALCIUM 600 WITH VITAMIN D3 600 MG (1,500)-200 UNIT TAB) Take by mouth once daily. Instructed to stop pre op No results found for: HB, HCT, WBC, PLT CMP: No results found for this basename: GLUC,BUN,CREAT,NA,K, CHLOR,CO2,TPROT,ALB, CA,ALKPHOS,TBILI,AST ,ALT No results found for: INR TTE 10/31/21 Normal left ventricle size and ejection fraction 64% by modified Muro's rule Normal diastolic function Normal right ventricle size and systolic function. Estimated RVSP 29 mmHg No significant valvular abnormalities Shunting not assessed in this study No prior study for review I have interviewed and examined the patient. I have reviewed the medical record and/or the pre-anesthesia evaluation, pertinent labs, and test results. This contains updated information obtained within 48 hours of Surgery/Procedure. SIGNATURE: Eliot Malik DO PATIENT NAME: Reji Foley DATE: June 06, 2025 TIME: 6:56 AM CSN: [id number] [facility] BLOOD BANK COMMENTon 025 BLOOD BANK COMMENT See Comment [facility] Comment on above: Order Comment: Speci men Type: BLOOD SPECIMENOrdering Facility: [facility] Address: [address] [place], [place] [address] Result Comment: 2nd sample NEEDED for ABO confirmation (CONABO)-NOTIFIED EDUARD IN OR AT 910A NEEDS REORDERED AND REDRAWN Performed By: #### L [id number], TSCR ####[facility] BLOOD BANKCLIA [id number] [place] [id number] [place] Basic metabolic 2000 panelon 06-06-2025 Anion gap [Moles/Vol] 12 mmol/L Normal 5-16 [facility] Comment on above: Order Comment: Speci men Type: BLOOD SPECIMEN Ordering Facility: [facility] Address: [address] [place] [address] Performed By: #### 2 4321-2 #### [facility] CLIA [id number] [address] [place], [place] [address] [place] Calcium [Mass/Vol] 9.6 mg/dL Normal 8.5-10.5 [facility] Comment on above: Order Comment: Speci men Type: BLOOD SPECIMEN Ordering Facility: [facility] Address: [address] [place] [address] Performed By: #### 2 4321-2 #### [facility] CLIA [id number] [address] [place], [place] [address] [place] Chloride [Moles/Vol] 103 mmol/L Normal 98-107 [facility] Comment on above: Order Comment: Speci men Type: BLOOD SPECIMEN Ordering Facility: [facility] Address: [address] [place] [address] Performed By: #### 2 4321-2 #### [facility] CLIA [id number] [address] [place], [place] [address] [place] CO2 [Moles/Vol] 22 mmol/L Normal 21-32 [facility] Comment on above: Order Comment: Speci men Type: BLOOD SPECIMEN Ordering Facility: [facility] Address: [address] [place] [address] Performed By: #### 2 4321-2 #### [facility] CLIA [id number] [address] [place] [address] [place] Creatinine [Mass/Vol] 1.05 mg/dL High 0.51-0.95 [facility] Comment on above: Order Comment: Speci men Type: BLOOD SPECIMEN [facility]ing Facility[facility] Address: [address] [place] [address] Result Comment: Nisreen ents receiving either N-Acetylcysteine (NAC) or Metamizole prior to venipuncture, may have falsely depressed results. Performed By: #### 2 4321-2 #### [facility] CLIA [id number] [address] [place] [address] [place] eGFRcr SerPlBld CKD-EPI 2020 56 mL/min/1.73m??? Low >=60 [facility] Comment on above: Order Comment: Speci men Type: BLOOD SPECIMEN [facility]ing [facility] Address: [address] [place] [address] Result Comment: Minnie mated Glomerular Filtration Rate (eGFR) is calculated using the 2020 CKD-EPI creatinine equation. This equation utilizes serum creatinine, sex, and age as parameters. The creatinine assay has traceable calibration to isotope dilution-mass spectrometry. Refer to KDIGO guidelines for clinical interpretation. In patients with unstable renal function, e.g. those with acute kidney injury, the eGFR may not accurately reflect actual GFR. Performed By: #### 2 4321-2 #### [facility] CLIA [id number] [address] [place], [place] [address] [place] Glucose [Mass/Vol] 122 mg/dL High 70-100 [facility] Comment on above: Order Comment: Danny schofield Type: BLOOD SPECIMEN [facility] Address: [address] [place] [address] Result Comment: The [place] Diabetes [employer] (ADA) provides guidance for cutoff values for fasting glucose and random glucose. The ADA defines fasting as no caloric intake for at least 8 hours. Fasting plasma glucose results between 100 to 125 mg/dL indicate increased risk for diabetes (prediabetes). Fasting plasma glucose results greater than or equal to 126 mg/dL meet the criteria for diagnosis of diabetes. In the absence of unequivocal hyperglycemia, results should be confirmed by repeat testing. In a patient with classic symptoms of hyperglycemia or hyperglycemic crisis, random plasma glucose results greater than or equal to 200 mg/dL meet the criteria for diagnosis of diabetes. Reference: Standards of Medical Care in Diabetes 2016, [place] [employer]. Diabetes Care. 2016.39(Suppl 1). Results may be falsely elevated after the administration of Sulfapyridine. Results may be falsely depressed after the administration of Sulfasalazine. Performed By: #### 2 4321-2 #### [facility] CLIA [id number] [address] [place] [address] [place] Potassium [Moles/Vol] 4.3 mmol/L Normal 3.5-5.1 [facility] Comment on above: Order Comment: Danny schofield Type: BLOOD SPECIMEN [facility] Address: [address] [place] [address] Performed By: #### 2 4321-2 #### [facility] CLIA [id number] [address] [place] [address] [place] Sodium [Moles/Vol] 137 mmol/L Normal 136-145 [facility] Comment on above: Order Comment: Danny schofield Type: BLOOD SPECIMEN [facility] Address: [address] [place], [place] [address] Performed By: #### 2 4321-2 #### [facility] CLIA [id number] [address] [place] [address] [place] Urea nitrogen [Mass/Vol] 16 mg/dL Normal 7-26 [facility] Comment on above: Order Comment: Speci men Type: BLOOD SPECIMEN [facility] Address: [address] [place] [address] Performed By: #### 2 4321-2 #### [facility] CLIA [id number] [address] [place] [id number] [facility] [place] CBC panel Auto (Bld)on 06-06 Erythrocyte distribution width (RBC) [Ratio] 13.9 % Normal 11.5-15.0 [facility] Comment on above: Order Comment: Speci men Type: BLOOD SPECIMENOrdering Facility: [facility] Address: [address] [place] [address] Performed By: #### 5 8410-2 ####[facility] LABORATORYCLIA [id number] [address] [place] Hematocrit (Bld) [Volume fraction] 25.7 % Low 36.0-46.0 [facility] Comment on above: Order Comment: Speci men Type: BLOOD SPECIMENOrdering Facility: [facility] Address: [address] [place] [address] Performed By: #### 5 8410-2 ####[facility] LABORATORYCLIA [id number] [address] [place] Hemoglobin (Bld) [Mass/Vol] 8.5 g/dL Low 11.5-15.5 [facility] Comment on above: Order Comment: Speci men Type: BLOOD SPECIMENOrdering Facility: [facility] Address: [address] [place] [address] Performed By: #### 5 8410-2 ####[facility] LABORATORYCLIA [id number] [place] [address] [place] MCH (RBC) [Entitic mass] 34.3 pg High 26.0-34.0 [facility] Comment on above: Order Comment: Speci men Type: BLOOD SPECIMENOrdering Facility: [facility] Address: [address] [place] [address] Performed By: #### 5 8410-2 ####[facility] LABORATORYCLIA [id number] [address] [place] MCHC (RBC) [Mass/Vol] 33.1 g/dL Normal 30.5-36.0 [facility] Comment on above: Order Comment: Speci men Type: BLOOD SPECIMENOrdering Facility: [facility] Address: [address] [place] [address] Performed By: #### 5 8410-2 ####[facility] LABORATORYCLIA [id number] [place] [address] [place] MCV (RBC) [Entitic vol] 103.6 fL High 80.0-100.0 M [facility] Comment on above: Order Comment: Speci men Type: BLOOD SPECIMENOrdering Facility: [facility] Address: [address] [place] [address] Performed By: #### 5 8410-2 ####[facility] LABORATORYCLIA [id number] [place] [address] [place] Nucleated RBC (Bld) [#/Vol] 10*3/uL Normal <0.01 [facility] Comment on above: Order Comment: Speci men Type: BLOOD SPECIMENOrdering Facility: [facility] Address: [address] [place] [address] Performed By: #### 5 8410-2 ####[facility] LABORATORYCLIA [id number] [place] [address] [place] Platelet mean volume (Bld) [Entitic vol] 10.5 fL Normal 9.0-12.7 [facility] Comment on above: Order Comment: Speci men Type: BLOOD SPECIMENOrdering Facility: [facility] Address: [address] [place] [address] Performed By: #### 5 8410-2 ####[facility] LABORATORYCLIA [id number] [place] [address] [place] Platelets (Bld) [#/Vol] 213 10*3/uL Normal 150-400 [facility] Comment on above: Order Comment: Speci men Type: BLOOD SPECIMENOrdering Facility: [facility] Address: [address] [place] [address] Performed By: #### 5 8410-2 ####[facility] LABORATORYCLIA [id number] [address] RBC (Bld) [#/Vol] 2.48 10*6/uL Low 3.90-5.20 [facility] Comment on above: Order Comment: Speci men Type: BLOOD SPECIMENOrdering Facility: [facility] Address: [address] [place] [address] Performed By: #### 5 8410-2 ####[facility] LABORATORYCLIA [id number] [address] WBC (Bld) [#/Vol] 7.22 10*3/uL Normal 3.70-11.00 [facility] Comment on above: Order Comment: Speci men Type: BLOOD SPECIMENOrdering Facility: [facility] Address: [address] [place] [address] Performed By: #### 5 8410-2 ####[facility] LABORATORYCLIA [id number] [address] CONFIRM BLOOD TYPEon 025 ABO AB Normal [facility] Comment on above: Order Comment: Speci men Type: BLOOD SPECIMENOrdering Facility: [facility] Address: [address] [place] [address] Performed By: #### C ONABO ####[facility] BLOOD BANKCLIA [id number] [address] [place] Rh Nom (Bld) Positive Normal [facility] Comment on above: Order Comment: Speci men Type: BLOOD SPECIMENOrdering Facility: [facility] Address: [address] [place] [address] Performed By: #### C ONABO ####[facility] BLOOD BANKCLIA [id number] [address] CONSULTon 06-06-2025 CONSULT HNO ID: [id number] Author: JUDY BORJAS MD Service: Hospital Medicine Author Type: Nurse Practitioner Type: Consults Filed: 06/07/2025 06:07 Note Text: Attestation signed by Judy Borjas MD at 06/07/2025 6:07 AM I have reviewed the documentation below obtained and documented by the Nurse Practitioner. I have discussed the case and management of the patient's care with the SPRAY STAINER and agree with the assessment and plan as detailed below. HOSPITALIST INITIAL CONSULT NOTE SERVICE DATE: 06/06/2025 SERVICE TIME: 9:45 PM REASON FOR CONSULT: Medical Management REQUESTING PHYSICIAN: Dr. Zhong PRIMARY CARE PHYSICIAN: Mynor Underwood MD Subjective Ms. Foley is a 74 year old female with a past medical history significant for hypertension, hyperlipidemia, GERD, and past CVA with residual visual deficit who presented for repair of left humeral fracture by Dr. Zhong. She experienced a mechanical fall on February 11, 2025 and was having ongoing pain in her left arm and was found to have humeral fracture therefore surgical repair performed. The patient is being seen postoperatively. She denies any fever, chills, cough, shortness of breath, chest pain, palpitations, abdominal pain, constipation, or dysuria. She has been able to tolerate an oral diet without any nausea/vomiting. She reports surgical pain to be a 10 out of 10. Surgical dressing dry and intact and sling and swath present. We were consulted for medical management. Preop labs reviewed and noted to be significant for creatinine 1.05, glucose 122, GFR 56, hemoglobin 8.5. VBG showed pH 7.27, CO2 47, pO2 46, bicarb 21, lactate 1.1. FUNCTIONAL STATUS: Partially dependent PAST MEDICAL HISTORY Diagnosis Date Acid reflux controlled with meds Cornea transplant recipient High cholesterol HTN (hypertension) sees cardilogist at [facility] but can't remember name Personal history of colonic polyps Personal history of fall broken arm Stroke (HCC) unsure what year, has some vision loss PAST SURGICAL HISTORY Procedure Laterality Date COLONOSCOPY FLX DX W/COLLJ SPEC WHEN PFRMD Colonoscopy COLONOSCOPY FLX DX W/COLLJ SPEC WHEN PFRMD 11/02/2008 PAST SURGICAL HISTORY OF [facility] PAST SURGICAL HISTORY OF tubal ligation PAST SURGICAL HISTORY OF cornea transplant PAST SURGICAL HISTORY OF surgery on nerve in arm TONSILLECTOMY PRIMARY/SECONDARY AGE 13/> 22 yrs FAMILY HISTORY Problem Relation Age of Onset Cancer Father pancreas, of, age 42 GI Mother Colon Cancer Maternal Grandmother Colon Cancer Maternal Uncle Diabetes Paternal Grandmother Coronary Artery Disease Other none SOCIAL HISTORY[1] Prescriptions Prior to Admission[2] Allergies As of Date: 05/21/2025 No Active Allergies Allergen Noted Reaction WELLBUTRIN [BUPROPION HCL] 08/15/2008 Fully Assessed 07/18/2011 COMPLETE REVIEW OF SYSTEMS: Review of Systems Constitutional: Negative for chills and fever. HENT: Negative for congestion and sore throat. Eyes: Negative for pain. Respiratory: Negative for cough and shortness of breath. Cardiovascular: Negative for chest pain and palpitations. Gastrointestinal: Negative for abdominal pain and nausea. Genitourinary: Negative for dysuria and frequency. Musculoskeletal: Negative for back pain and neck pain. Skin: Negative for pallor and rash. Neurological: Negative for dizziness and headaches. Psychiatric/Behavior al: Negative for agitation and confusion. Objective PHYSICAL EXAM: Physical Exam Performed: Physical Exam Vitals and nursing note reviewed. Constitutional: General: She is not in acute distress. HENT: Head: Normocephalic and atraumatic. Right Ear: External ear normal. Left Ear: External ear normal. Nose: Nose normal. Mouth/Throat: Mouth: Mucous membranes are moist. Pharynx: Oropharynx is clear. Eyes: General: Right eye: No discharge. Left eye: No discharge. Cardiovascular: Rate and Rhythm: Normal rate and regular rhythm. Pulses: Normal pulses. Heart sounds: Normal heart sounds. Pulmonary: Breath sounds: Normal breath sounds. Abdominal: General: Bowel sounds are normal. Palpations: Abdomen is soft. Musculoskeletal: Cervical back: Normal range of motion and neck supple. Right lower leg: No edema. Left lower leg: No edema. Skin: General: Skin is warm and dry. Capillary Refill: Capillary refill takes less than 2 seconds. Comments: Surgical dressing dry and intact. Sling and swath present to left upper extremity. Neurological: General: No focal deficit present. Mental Status: She is alert and oriented to person, place, and time. Mental status is at baseline. Psychiatric: Mood and Affect: Mood normal. Behavior: Behavior normal. Thought Content: Thought cont (more content not included)... Normal [facility] Gas and Carbon monoxide pane l (BldV)on 06-06-2025 BASE DEFICIT, VENOUS -6 mmol/L Low -2-0 [facility] Comment on above: Order Comment: Speci men Type: VENOUS BLOOD SPECIMENOrdering Facility: [facility] Address: [address] [place] [address] Performed By: #### 2 4344-4 ####[facility] RESPIRATORY THERAPYCLIA [id number] [place] [address] [place] Calcium.ionized (Bld) [Mass/Vol] 1.14 mmol/L Normal 1.08-1.30 [facility] Comment on above: Order Comment: Speci men Type: VENOUS BLOOD SPECIMENOrdering Facility: [facility] Address: [address] [place] [address] Performed By: #### 2 4344-4 ####[facility] RESPIRATORY THERAPYCLIA [id number] [place] [address] [place] Carboxyhemoglobin (BldV) [Mass fraction] 2.3 % High 0.0-2.0 [facility] Comment on above: Order Comment: Speci men Type: VENOUS BLOOD SPECIMENOrdering Facility: [facility] Address: [address] [place] [address] Result Comment: Carb oxyhemoglobin Reference Range for Smokers: 2.0-8.0% Performed By: #### 2 4344-4 ####[facility] RESPIRATORY THERAPYCLIA [id number] [address] [place] CO2 (BldV) [Partial pressure] 47 mm[Hg] Normal 42-55 [facility] Comment on above: Order Comment: Speci men Type: VENOUS BLOOD SPECIMENOrdering Facility: [facility] Address: [address] [place] [address] Performed By: #### 2 4344-4 ####[facility] RESPIRATORY THERAPYCLIA [id number] [address] [place] CO2 adjusted to patient's actual temperature (BldV) [Partial pressure] Normal [facility] Comment on above: Order Comment: Speci men Type: VENOUS BLOOD SPECIMENOrdering Facility: [facility] Address: [address] [place] [address] Performed By: #### 2 4344-4 ####[facility] RESPIRATORY THERAPYCLIA [id number] [address] [place] FIO2 60.0 % Normal [facility] Comment on above: Order Comment: Speci men Type: VENOUS BLOOD SPECIMENOrdering Facility: [facility] Address: [address] [place] [address] Performed By: #### 2 4344-4 ####[facility] RESPIRATORY THERAPYCLIA [id number] [place] [address] [place] Glucose [Mass/Vol] 115 mg/dL High 60-105 [facility] Comment on above: Order Comment: Speci men Type: VENOUS BLOOD SPECIMENOrdering Facility: [facility] Address: [address] [place] [address] Performed By: #### 2 4344-4 ####[facility] RESPIRATORY THERAPYCLIA [id number] [place] [address] [place] HCO3 (Bld) [Moles/Vol] 21 mmol/L Low 24-28 [facility] Comment on above: Order Comment: Speci men Type: VENOUS BLOOD SPECIMENOrdering Facility: [facility] Address: [address] [place] [address] Performed By: #### 2 4344-4 ####[facility] RESPIRATORY THERAPYCLIA [id number] [place] [address] [place] Hemoglobin (Bld) [Mass/Vol] 13.9 g/dL Normal 11.5-15.5 [facility] Comment on above: Order Comment: Speci men Type: VENOUS BLOOD SPECIMENOrdering Facility: [facility] Address: [address] [place] [address] Performed By: #### 2 4344-4 ####[facility] RESPIRATORY THERAPYCLIA [id number] [place] [address] [place] Lactate [Moles/Vol] 1.1 mmol/L Normal 0.5-2.2 [facility] Comment on above: Order Comment: Speci men Type: VENOUS BLOOD SPECIMENOrdering Facility: [facility] Address: [address] [place] [address] Performed By: #### 2 4344-4 ####[facility] RESPIRATORY THERAPYCLIA [id number] [address] [place] Methemoglobin (Bld) [Mass fraction] 0.2 % Normal 0.0-1.5 [facility] Comment on above: Order Comment: Speci men Type: VENOUS BLOOD SPECIMENOrdering Facility: [facility] Address: [address] [place] [address] Performed By: #### 2 4344-4 ####[facility] RESPIRATORY THERAPYCLIA [id number] [place] [address] [place] Oxygen (BldV) [Partial pressure] 46 mm[Hg] High 35-45 [facility] Comment on above: Order Comment: Speci men Type: VENOUS BLOOD SPECIMENOrdering Facility: [facility] Address: [address] [place] [address] Performed By: #### 2 4344-4 ####[facility] RESPIRATORY THERAPYCLIA [id number] [place] [address] [place] Oxygen adjusted to patient's actual temperature (BldV) [Partial pressure] Normal [facility] Comment on above: Order Comment: Speci men Type: VENOUS BLOOD SPECIMENOrdering Facility: [facility] Address: [address] [place] [address] Performed By: #### 2 4344-4 ####[facility] [id number] [address] [place] Oxyhemoglobin (BldV) [Mass fraction] 74 % Normal 4-98 [facility] Comment on above: Order Comment: Speci men Type: VENOUS BLOOD SPECIMENOrdering Facility: [facility] Address: [address] [place] [address] Performed By: #### 2 4344-4 ####[facility] TH[facility]CLIA [id number] [place] [address] [place] pH (BldV) 7.27 [pH] Low 7.32-7.42 [facility] Comment on above: Order Comment: Speci men Type: VENOUS BLOOD SPECIMENOrdering Facility: [facility] Address: [address] [place] [address] Performed By: #### 2 4344-4 ####[facility] RESPIRATORY THERAPYCLIA [id number] [address] [place] pH adjusted to patient's actual temperature (BldV) Normal [facility] Comment on above: Order Comment: Speci men Type: VENOUS BLOOD SPECIMENOrdering Facility: [facility] Address: [address] [place] [address] Performed By: #### 2 4344-4 ####[facility] TH[facility]YCLIA [id number] [place] [address] [place] Potassium [Moles/Vol] 3.9 mmol/L Normal 2.5-6.0 [facility] Comment on above: Order Comment: Speci men Type: VENOUS BLOOD SPECIMENOrdering Facility: [facility] Address: [address] [place] [address] Performed By: #### 2 4344-4 ####[facility] RESPIRATORY THERAPYCLIA [id number] [place] [address] [place] Sodium [Moles/Vol] 136 mmol/L Normal 136-144 [facility] Comment on above: Order Comment: Speci men Type: VENOUS BLOOD SPECIMENOrdering Facility: [facility] Address: [address] [facility] [facility] [place] [address] Performed By: #### 2 4344-4 ####[facility] THERAPYCLIA [id number] [place] [address] [place] BASE DEFICIT, VENOUS -12 mmol/L Low -2-0 [facility] Comment on above: Order Comment: Speci men Type: VENOUS BLOOD SPECIMEN [facility] Address: [address] [place] [address] Performed By: #### 2 4344-4 #### [facility] RESPIRATORY THERAPY CLIA [id number] [address] [place] [address] [place] Calcium.ionized (Bld) [Mass/Vol] 0.77 mmol/L Low 1.08-1.30 [facility] Comment on above: Order Comment: Speci men Type: VENOUS BLOOD SPECIMEN [facility] Address: [address] [place] [address] Performed By: #### 2 4344-4 #### [facility] RESPIRATORY THERAPY CLIA [id number] [address] [place] [address] [place] Carboxyhemoglobin (BldV) [Mass fraction] 2.0 % Normal 0.0-2.0 [facility] Comment on above: Order Comment: Speci men Type: VENOUS BLOOD SPECIMEN [facility] Address: [address] [place] [address] Result Comment: Carb oxyhemoglobin Reference Range for Smokers: 2.0-8.0% Performed By: #### 2 4344-4 #### [facility] CLIA [id number] [address] [place] [address] [place] CO2 (BldV) [Partial pressure] 29 mm[Hg] Low 42-55 [facility] Comment on above: Order Comment: Speci men Type: VENOUS BLOOD SPECIMEN [facility] Address: [address] [place] [address] Performed By: #### 2 4344-4 #### [facility] CLIA [id number] [place] CO2 adjusted to patient's actual temperature (BldV) [Partial pressure] Normal [facility] Comment on above: Order Comment: Speci men Type: VENOUS BLOOD SPECIMEN [facility] Address: [address] [place] [address] Performed By: #### 2 4344-4 #### [facility] TH[facility] CLIA [id number] [address] [place] [address] [place] FIO2 100.0 % Normal [facility] Comment on above: Order Comment: Speci men Type: VENOUS BLOOD SPECIMEN [facility] Address: [address] [place] [address] Performed By: #### 2 4344-4 #### [facility] CLIA [id number] [address] [place] [address] [place] Glucose [Mass/Vol] 86 mg/dL Normal 60-105 [facility] Comment on above: Order Comment: Speci men Type: VENOUS BLOOD SPECIMEN [facility] Address: [address] [place] [address] Performed By: #### 2 4344-4 #### [facility] CLIA [id number] [address] [place] [address] [place] HCO3 (Bld) [Moles/Vol] 14 mmol/L Low 24-28 [facility] Comment on above: Order Comment: Speci men Type: VENOUS BLOOD SPECIMEN [facility] Address: [address] [place] [address] Performed By: #### 2 4344-4 #### [facility] CLIA [id number] [address] [place] [address] [place] Hemoglobin (Bld) [Mass/Vol] 9.5 g/dL Low 11.5-15.5 [facility] Comment on above: Order Comment: Speci men Type: VENOUS BLOOD SPECIMEN [facility] Address: [address] [place] [address] Performed By: #### 2 4344-4 #### [facility] CLIA [id number] [address] [place] [address] [place] Lactate [Moles/Vol] 0.6 mmol/L Normal 0.5-2.2 [facility] Comment on above: Order Comment: Speci men Type: VENOUS BLOOD SPECIMEN [facility] Address: [address] [place] [address] Performed By: #### 2 4344-4 #### [facility] CLIA [id number] [address] [place] [address] [place] Methemoglobin (Bld) [Mass fraction] 0.4 % Normal 0.0-1.5 [facility] Comment on above: Order Comment: Speci men Type: VENOUS BLOOD SPECIMEN [facility] Address: [address] [place] [address] Performed By: #### 2 4344-4 #### [facility] RESPIRATORY THERAPY CLIA [id number] [address] [place] [address] [place] Oxygen (BldV) [Partial pressure] 44 mm[Hg] Normal 35-45 [facility] Comment on above: Order Comment: Speci men Type: VENOUS BLOOD SPECIMEN [facility] Address: [address] [place] [address] Performed By: #### 2 4344-4 #### [facility] RESPIRATORY THERAPY CLIA [id number] [address] [place] [address] [place] Oxygen adjusted to patient's actual temperature (BldV) [Partial pressure] Normal [facility] Comment on above: Order Comment: Speci men Type: VENOUS BLOOD SPECIMEN [facility] Address: [address] [place] [address] Performed By: #### 2 4344-4 #### [facility] CLIA [id number] [address] [place] [address] [place] Oxyhemoglobin (BldV) [Mass fraction] 73 % Normal 4-98 [facility] Comment on above: Order Comment: Speci men Type: VENOUS BLOOD SPECIMEN [facility] Address: [address] [place] [address] Performed By: #### 2 4344-4 #### [facility] CLIA [id number] [address] [place] [address] [place] pH (BldV) 7.29 [pH] Low 7.32-7.42 [facility] Comment on above: Order Comment: Speci men Type: VENOUS BLOOD SPECIMEN [facility] Address: [address] [place] [address] Performed By: #### 2 4344-4 #### [facility] CLIA [id number] [address] [place] [address] [place] pH adjusted to patient's actual temperature (BldV) Normal [facility] Comment on above: Order Comment: Speci men Type: VENOUS BLOOD SPECIMEN [facility] Address: [address] [place] [address] Performed By: #### 2 4344-4 #### [facility] CLIA [id number] [address] [place] [address] [place] Potassium [Moles/Vol] 2.1 mmol/L Critically low 2.5-6.0 [facility] Comment on above: Order Comment: Speci men Type: VENOUS BLOOD SPECIMEN [facility] Address: [address] [place] [address] Performed By: #### 2 4344-4 #### [facility] CLIA [id number] [address] [place] [address] [place] Sodium [Moles/Vol] 140 mmol/L Normal 136-144 [facility] Comment on above: Order Comment: Speci men Type: VENOUS BLOOD SPECIMEN [facility] Address: [address] [place] [address] Performed By: #### 2 4344-4 #### [facility] CLIA [id number] [address] [place] [address] [place] OPERATIVE NOon 06-06-2025 OPERATIVE NO HNO ID: [id number] Author: ROSAMARIA ZHONG MD Service: Orthopaedic Surgery Author Type: Physician Type: Operative Report Filed: 06/06/2025 11:12 Note Text: OPERATIVE/PROCEDURE REPORT LOG ID: [id number] SURGERY/PROCEDURE DATE: 06/06/2025 INCISION/PROCEDURE START TIME: INCISION CLOSE/PROCEDURE END TIME: SURGEON(S)/PROCEDURA LIST(S) AND LOCAL TRUCK DRIVER(S): Surgeons and Role: * Rosamaria Zhong MD - Primary No Additional Staff SURGERY/PROCEDURE(S) : Repair nonunion left comminuted proximal humerus malunion ANESTHESIA: General, regional block PRE-OP/PRE-PROCEDURE DIAGNOSIS: Left comminuted proximal humerus malunion POST-OP/POST-PROCEDU RE DIAGNOSIS: Same as Preop SURGERY/PROCEDURE DETAILS: Patient is a 74-year-old female who injured her left shoulder in February of this year. Patient was treated appropriately nonoperatively in a humeral fracture brace in [place] Patient is a significant smoker. She smokes at least 1 pack/day. It is difficult to determine how much she smokes. Patient was seen and evaluated by myself in my office and was referred from a surgeon in [place]. X-rays were reviewed as well as a CT scan. Patient has a comminuted proximal humerus fracture with partial healing but malunion at the fracture site and some varus angulation of the head. I did dustin discussion with the patient and the daughter. She understood that even if we did open reduction term fixation that if she continued to smoke she was at high risk of not healing. I told her she could need further surgery in the future. I stressed to her the importance of complete smoking cessation. The risks and benefits of surgery were explained extensively to the patient and family prior to the procedure. Patient and family understood the risks of infection, DVT, PE, nonunion, hardware failure, need for further surgery in the future, neurovascular injury with ongoing sequelae, blood loss with possible transfusion, respiratory, cardiac, urinary, GI complications, chronic ongoing pain, and all other risks of surgery and anesthesia up and to including . Informed consent was obtained. The left arm was marked in the preoperative area as the proper operative site. Regional block was done by anesthesia. The patient was brought the operating room and placed supine on the operating table. Head and neck were positioned by anesthesia staff and monitored by anesthesia throughout the procedure. General anesthesia was induced without complication. The patient was placed in beachchair position with all bony prominences well-padded. The left upper extremity was then prepped and draped in normal sterile orthopedic fashion. Timeout was performed left proximal humerus was identified as a proper operative site. 2 g of Ancef was given. Incision was made for standard deltopectoral approach proximally. I dissected through skin and subcutaneous tissue maintain careful hemostasis with electrocautery. The deltopectoral interval was identified. Scissors were used to delineate this interval. I then bluntly dissected distally. It seemed that the surgical neck fracture had healed. I extended my incision distally. Once again maintaining careful hemostasis dissecting through subcutaneous tissue. Scissors were used to bluntly dissect the remainder of the fracture out in the midshaft which was highly mobile. I then dissected more distal to the intact humeral shaft distally. Radial nerve was identified along the posterior lateral aspect of the humeral shaft and protected throughout the case. It appeared that the surgical neck fracture as well as the butterfly fragment had healed to the proximal fracture. 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 Both ends of the mobile nonunion were debrided using a rongeur and bur. There is no sign of infection. There is some serous fluid at the nonunion site. A bur was used to denude down to bleeding bone. I was then able to reduce the 2 nonunion fragments into 2.7 mm lag screws were placed in standard fashion to hold the reduction. X-rays demonstrated good alignment of the fracture and the head was out of varus. A 10 hole plate was applied held proximally with a K wire and adjusted on x-ray. When I was happy with the placement of the plate a fully threaded cancellous screws placed in the head as well as a bicortical cortical screw distally. X-rays demonstrated the fracture to be in good alignment. Hardware was in good position. 4 bicortical cortical screws were placed distally while using a baby Hohmann and carefully protecting the radial nerve during placement of the screws. 5 locking screws were placed in the head, replacing the initial fully threaded cancellous screw with a locking screw. Final x-rays demonstrate the fracture to be well aligned. Hardware was in good position. Wound was thoroughly irrigated. Cancellous chips as well as augment was mixed and placed in the fracture voi (more content not included)... [facility] TYPE + SCREENon 06-06-2025 ABO AB [facility] Comment on above: Order Comment: Speci men Type: BLOOD SPECIMENOrdering Facility: [facility] Address: [address] [id number] Performed By: #### L [id number], TSCR ####[facility] BLOOD BANKCLIA [id number] [place] [id number] [facility] Rh Nom (Bld) Positive Normal [facility] Comment on above: Order Comment: Speci men Type: BLOOD SPECIMENOrdering Facility: [facility] Address: [address] [place] [address] Performed By: #### L [id number], TSCR ####[facility] BLOOD BANKCLIA [id number] [place] [id number] [facility] TYPE AND SCREEN EXPIRATION 06/09/2025 23:59 [facility] Comment on above: Order Comment: Speci men Type: BLOOD SPECIMENOrdering Facility: [facility] Address: [address] [place] [address] Performed By: #### L [id number], TSCR ####[facility] BLOOD BANKCLIA [id number] [place] [id number] [facility] [place] XR FLUOROSCOPYon 06-06-2025 XR FLUOROSCOPY * * *Final Report* * * DATE OF EXAM: Jun 06 2025 9:58AM [id number] [id number] - XR FLUOROSCOPY / PROCEDURE REASON: FRACTURE OF LEFT HUMERUS * * * * Physician Interpretation * * * * INTRAOPERATIVE FLUOROSCOPY: Clinical Statement: Fracture of left humerus. REPORT: 21 seconds of fluoroscopy time was utilized in the OR by Dr. Zhong during surgical fixation of the proximal left humeral fracture with 13 fluoroscopic images acquired during the procedure and saved to PACS for documentation. IMPRESSION: Documentation of intraoperative fluoroscopy. Heel Slicker: PSCB Transcribe Date/Time: Jun 06 2025 10:19A Dictated by : MARLON RUTH MD This examination was interpreted and the report reviewed and electronically signed by: MARLON RUTH MD on Jun 06 2025 10:20AM EST [id number] [email or web address] [facility] NURSING PROGon 06-05-2025 NURSING PROG HNO ID: [id number] Author: FLOYD DUEÑAS, RN Service: Nursing Author Type: Registered Nurse Type: Nursing Progress Note Filed: 06/05/2025 13:43 Note Text: PRE-PROCEDURE INSTRUCTIONS TO PREPARE FOR YOUR PROCEDURE: Your arrival time for your procedure is 0545. Do NOT eat any solid foods after MIDNIGHT the night prior to your procedure - this includes gum or mints. You can drink clear liquids* up until 0345, which is 2 hours before your arrival time. *Clear liquids = water, carbohydrate drink (sports drink that is clear or yellow in color), Ensure Pre-Surgery (given by FERNANDO or your DrNohelia), fruit juice without pulp (apple/cranberry), clear tea, black coffee (no cream). NO CARBONATED BEVERAGES AND NO ALCOHOL. Shower the morning of the procedure, put on clean clothes, and have clean sheets for your bed to help prevent infection after your procedure. Leave all valuables such as jewelry including rings, piercings, wallets, and purses at home. Wear comfortable, loose-fitting clothing. If you wear glasses or contacts, please bring a case. SPECIAL INSTRUCTIONS: If instructed, bring your first voided urine specimen with you. If you were provided skin preparation to use prior to your procedure, complete this as directed. If a bowel preparation has been ordered by your physician, it is very important to follow the bowel prep instructions or your procedure may need to be rescheduled. If you use crutches or a walker, bring them with you. If you have a home CPAP/BIPAP machine, bring it with you. If you were instructed to complete a fleets enema or bowel prep, complete as directed. Bring copy of Living Will/Power of Cab Driver. Do not smoke or chew. If you use tobacco, quit or at least cut down before surgery. Do not smoke or chew after midnight the day before your surgery. This effects bleeding, infection, healing, and so much more. Do not take any Diet or Herbal Supplements 2 weeks prior to your surgery date. Please notify your physician if there is any change in your physical condition such as a cold, cough, fever, sore throat, or skin irritation near the surgical site. Visitors under the age of 14 are restricted in the Surgery Center. UPON ARRIVAL: Access to [facility] is located on [address]. [employer] parking is available for your convenience from 5am-5pm- there is a $5.00 charge for this service. Take the elevators directly inside the entrance to the 1st Floor Surgery Lobby. Sign in at the podium located to the left when you get off the elevators. A payment may be expected at the time of service. One visitor may come back to the preoperative area with you. The preoperative staff will be reviewing your medical history, please let them know if you prefer not to have a visitor with you during this time. Once you are ready for your procedure, two visitors at a time are permitted in your preprocedure room. MEDICATION INSTRUCTIONS PRIOR TO SURGERY Please read below carefully for your personalized instructions. Medications: If you are on blood thinner or anticoagulants including aspirin, please confirm with your surgical team on when to stop these medications. Unless instructed differently by your surgical team, stay on all of your medications until your surgery. Pre Surgery Med Instructions Medication instructions ACYCLOVIR PO DO NOT TAKE THE MORNING OF SURGERY. amlodipine besylate (NORVASC PO) If you normally take this medication in the morning, it is ok to take the morning of surgery with a sip of water. aspirin 81 mg cap Follow prescriber's instructions. atorvastatin (LIPITOR) 40 mg tablet If you normally take this medication in the morning, it is ok to take the morning of surgery with a sip of water. calcium carbonate/vitamin d3(CALCIUM 600 WITH VITAMIN D3 600 MG (1,500)-200 UNIT TAB) DO NOT TAKE THE MORNING OF SURGERY. escitalopram oxalate (LEXAPRO) 20 mg tablet If you normally take this medication in the morning, it is ok to take the morning of surgery with a sip of water. famotidine 20 mg ORAL tablet If you normally take this medication in the morning, it is ok to take the morning of surgery with a sip of water. losartan (COZAAR) 50 mg tablet DO NOT TAKE THE MORNING OF SURGERY. multivit-min/folic acid/lutein (CENTRUM SILVER PO) DO NOT TAKE THE MORNING OF SURGERY. prednisolone sodium phosphate (PREDNISOL OPHTHALMIC) Continue as prescribed. propranolol (INDERAL) 80 mg tablet If you normally take this medication in the morning, it is ok to take the morning of surgery with a sip of water. If you have any medication changes between receiving these instructions and your surgery date, please provide this updated information with the nurse who calls you the week day prior to your surgical procedure so we can update your list and provide you with updated instructions for the morning of your procedure. Normal [facility] Absolute lymphocyte countOrd ered By: Mynor Underwood on 05-30-2025 Lymphocytes Auto (Unsp spec) [#/Vol] 2.72 10*3/uL 0.83-4.51 [facility] Absolute neutrophil countOrd ered By: Mynor Underwood on 05-30-2025 Neutrophils (Bld) [#/Vol] 5.9 10*3/uL 2.0-7.7 [facility] Anion gap in Serum or Plasma Ordered By: Mynor Underwood on 05-30-2025 Anion gap [Moles/Vol] 12 mmol/L 02-22 [facility] Automated lymphocyte count a s percentage of total leukocytesOrdered By: Mynor Underwood on 05-30-2025 Lymphocytes/100 WBC Auto (Unsp spec) 25.5 % [facility] BUN/creatinine ratioOrdered By: Mynor Underwood on 05-30-2025 Urea nitrogen/Creatinine [Mass ratio] 19.0 mg/mg - [facility] Basic Metabolic Profile (BMP )on 05-30-2025 BUN/CRE 19.0 RATIO Normal - [facility] Comment on above: Performed By: #### L 500.2500, L100.0100 #### [facility] [address] [place], [address] Calcium [Mass/Vol] 9.1 mg/dL Normal 7.6-11.[address] [facility] Comment on above: Performed By: #### L 500.2500, L100.0100 #### [facility] [address] [place], [address] Chloride [Moles/Vol] 101 mmol/L Normal 98-108 [facility] Comment on above: Performed By: #### L 500.2500, L100.0100 #### [facility] [address] [place], [address] CO2 [Moles/Vol] 22.4 mmol/L Normal 21.0-32.0 [facility] Comment on above: Performed By: #### L 500.2500, L100.0100 #### [facility] [address] [place], [address] Creatinine [Mass/Vol] 1.09 mg/dL Normal 0.70-1.20 [facility] Comment on above: Performed By: #### L 500.2500, L100.0100 #### [facility] [address] [place], [address] GAP 12 Normal 5-15 [facility] Comment on above: Performed By: #### L 500.2500, L100.0100 #### [facility] [address] [place], [address] GFR/1.73 sq M.predicted among non-blacks MDRD (S/P/Bld) [Vol rate/Area] 54 mL/min/{1.73_m2} Low >60 [facility] Comment on above: Result Comment: mL/m in/1.73m2 CKD-EPI Creatinine Equation (2020) Performed By: #### L 500.2500, L100.0100 #### [facility] [address] [place], [address] Glucose [Mass/Vol] 108 mg/dL High 70-[address] [facility] Comment on above: Performed By: #### L 500.2500, L100.0100 #### [facility] [address] [place], [address] Potassium [Moles/Vol] 4.9 mmol/L Normal 3.3-5.1 [facility] Comment on above: Performed By: #### L 500.2500, L100.0100 #### [facility] [address] [place], [address] Sodium [Moles/Vol] 135 mmol/L Normal 133-[address] [facility] Comment on above: Performed By: #### L 500.2500, L100.0100 #### [facility] [address] [place], [address] Urea nitrogen [Mass/Vol] 21 mg/dL High 4-19 [facility] Comment on above: Performed By: #### L 500.2500, L100.0100 #### [facility] [address] [place], [address] Basophil percentageOrdered B y: Mynor Underwood on 05-30-2025 Basophils/100 WBC (Bld) 1.4 % High 0-1 [facility] CBC W/Diff, Automatedon 05-12-2024 Absolute Lymph 2.72 X10 3/uL Normal 0.83-4.51 [facility] Comment on above: Performed By: #### L 500.2500, L100.0100 #### [facility] [address] [place], [address] Absolute Neut 5.9 X10 3/uL Normal 2.0-7.7 [facility] Comment on above: Performed By: #### L 500.2500, L100.0100 #### [facility] [address] [place], [address] Basophils/100 WBC (Bld) 1.4 % High 0-1 [facility] Comment on above: Performed By: #### L 500.2500, L100.0100 #### [facility] [address] [place], [address] Eosinophils/100 WBC (Bld) 6.0 % High 0-5 [facility] Comment on above: Performed By: #### L 500.2500, L100.0100 #### [facility] [address] [place], [address] Erythrocyte distribution width (RBC) [Ratio] 13.9 % Normal 11.6-14.6 [facility] Comment on above: Performed By: #### L 500.2500, L100.0100 #### [facility] [address] [place], [address] Hematocrit (Bld) [Volume fraction] 41.2 % Normal 37-47 [facility] Comment on above: Performed By: #### L 500.2500, L100.0100 #### [facility] [address] [place], [address] Hemoglobin (Bld) [Mass/Vol] 13.8 g/dL Normal 12.0-15.0 [facility] Comment on above: Performed By: #### L 500.2500, L100.0100 #### [facility] [address] [place], [address] IG% 0.700 Normal 0.0-0.9 [facility] Comment on above: Result Comment: IG% - Immature Granulocytes (promyelocytes, myelocytes and metamyelocytes) > 1% indicates that a LEFT SHIFT is Present. Performed By: #### L 500.2500, L100.0100 #### [facility] [address] [place], [address] Lymphocytes/100 WBC (Bld) 25.5 % Normal 19-41 [facility] Comment on above: Performed By: #### L 500.2500, L100.0100 #### [facility] [address] [place], [address] MCH (RBC) [Entitic mass] 33.6 pg High 27.0-32.0 [facility] Comment on above: Performed By: #### L 500.2500, L100.0100 #### [facility] [address] [place], [address] MCHC (RBC) [Mass/Vol] 33.5 g/dL Normal 32-36 [facility] Comment on above: Performed By: #### L 500.2500, L100.0100 #### [facility] [address] [place], [address] MCV (RBC) [Entitic vol] 100.2 fL High 81-99 [facility] Comment on above: Performed By: #### L 500.2500, L100.0100 #### [facility] [address] [place], [address] Monocytes/100 WBC (Bld) 11.1 % High 0-10 [facility] Comment on above: Performed By: #### L 500.2500, L100.0100 #### [facility] [address] [place], [address] Neutrophils/100 WBC (Bld) 55.3 % Normal 47-70 [facility] Comment on above: Performed By: #### L 500.2500, L100.0100 #### [facility] [address] [place], [address] Nucleated RBC (Bld) [#/Vol] 0 10*3/uL Normal 0-5 [facility] Comment on above: Performed By: #### L 500.2500, L100.0100 #### [facility] [address] [place], [address] Platelet mean volume (Bld) [Entitic vol] 11.4 fL Normal 6.2-12.0 [facility] Comment on above: Performed By: #### L 500.2500, L100.0100 #### [facility] [address] [place], [address] Platelets (Bld) [#/Vol] 370 10*3/uL Normal 150-450 [facility] Comment on above: Performed By: #### L 500.2500, L100.0100 #### [facility] [address] [place], [address] RBC (Bld) [#/Vol] 4.11 10*6/uL Low 4.2-5.4 [facility] Comment on above: Performed By: #### L 500.2500, L100.0100 #### [facility] [address] [place], [address] RDW SD 50.8 fl High 35.1-43.9 [facility] Comment on above: Performed By: #### L 500.2500, L100.0100 #### [facility] [address] [place], [address] WBC (Bld) [#/Vol] 10.7 10*3/uL Normal 4.4-11.0 [facility] Comment on above: Performed By: #### L 500.2500, L100.0100 #### [facility] [address] [place], [address] Carbon dioxide, total [Moles /volume] in Central venous bloodOrdered By: Mynor Underwood on 05-30-2025 CO2 [Moles/Vol] 22.4 mmol/L 21.0-32.0 [facility] Chloride assayOrdered By: Rose Marie Underwood on 05-30-2025 Chloride [Moles/Vol] 101 mmol/L 98-108 [facility] Eosinophil percentageOrdered By: Mynor Underwood on 05-30-2025 Eosinophils/100 WBC (Bld) 6.0 % High 0-5 [facility] Erythrocyte distribution wid th ratioOrdered By: Mynor Underwood on 05-30-2025 Erythrocyte distribution width (RBC) [Ratio] 13.9 % 11.6-14.6 [facility] Erythrocyte distribution wid th standard deviationOrdered By: Mynor Underwood on 05-30-2025 Erythrocyte distribution width (RBC) [Ratio] 50.8 fl High 35.1-43.9 [facility] Glomerular filtration rate ( GFR) estimation/1.73 sq m using serum, plasma, or whole bOrdered By: Mynor Underwood on 05-30-2025 GFR/1.73 sq M.predicted among non-blacks MDRD (S/P/Bld) [Vol rate/Area] 54 mL/min/{1.73_m2} Low >60 [facility] Comment on above: mL/min/1.73m2 CKD-EP I Creatinine Equation (2020) Hematocrit Auto (Bld) [Volum e fraction]Ordered By: Mynor Underwood on 05-30-2025 Hematocrit (Bld) [Volume fraction] 41.2 % 37-47 [facility] Hemoglobin measurementOrdere d By: Mynor Underwood on 05-30-2025 Hemoglobin (Bld) [Mass/Vol] 13.8 g/dL 12.0-15.0 [facility] Immature granulocytes/100 WB C Auto (Bld)Ordered By: Mynor Underwood on 05-30-2025 Immature granulocytes/100 WBC (Bld) 0.700 % 0.0-0.9 [facility] Comment on above: IG% - Immature Granu locytes (promyelocytes, myelocytes and metamyelocytes) > 1% indicates that a LEFT SHIFT is Present. MCV (mean corpuscular volume ) determinationOrdered By: Mynor Underwood on 05-30-2025 MCV (RBC) [Entitic vol] 100.2 fL High 81-99 [facility] Mean corpuscular hemoglobin (MCH) determinationOrdered By: Mynor Underwood on 05-30-2025 MCH (RBC) [Entitic mass] 33.6 pg High 27.0-32.0 [facility] Mean corpuscular hemoglobin concentration (MCHC) determinationOrdered By: Mynor Underwood on 05-30-2025 MCHC (RBC) [Mass/Vol] 33.5 g/dL 32-36 [facility] Mean platelet volume determi nationOrdered By: Mynor Underwood on 05-30-2025 Platelet mean volume (Bld) [Entitic vol] 11.4 fL 6.2-12.0 [facility] Monocyte percentageOrdered B y: Mynor Underwood on 05-30-2025 Monocytes/100 WBC (Bld) 11.1 % High 0-10 [facility] Neutrophil percentageOrdered By: Mynor Underwood on 05-30-2025 Neutrophils/100 WBC (Bld) 55.3 % 47-70 [facility] Nucleated red blood cell per centageOrdered By: Mynor Underwood on 05-30-2025 Nucleated RBC/100 WBC (Bld) [Ratio] 0 % 0-5 [facility] Platelet countOrdered By: Rose Marie Underwood on 05-30-2025 Platelets (Bld) [#/Vol] 370 10*3/uL 150-450 [facility] Potassium measurement (mass/ volume)Ordered By: Mynor Underwood on 05-30-2025 Potassium (Unsp spec) [Mass/Vol] 4.9 mmol/L 3.3-5.1 [facility] RBC Auto (Bld) [#/Vol]Ordere d By: Mynor Underwood on 05-30-2025 RBC (Bld) [#/Vol] 4.11 10*6/uL Low 4.2-5.4 [facility] Serum creatinine measurement (mass/volume)Ordered By: Mynor Underwood on 05-30-2025 Creatinine [Mass/Vol] 1.09 mg/dL 0.70-1.20 [facility] Serum glucose measurement (m ass/volume)Ordered By: Mynor Underwood on 05-30-2025 Glucose [Mass/Vol] 108 mg/dL High 70-[address] [facility] Serum or plasma calcium joe urement (mass/volume)Ordered By: Mynor Underwood on 05-30-2025 Calcium [Mass/Vol] 9.1 mg/dL 7.6-11.[address] [facility] Serum or plasma urea nitroge n measurement (mass/volume)Ordered By: Mynor Underwood on 05-30-2025 Urea nitrogen [Mass/Vol] 21 mg/dL High 4-19 [facility] Sodium levelOrdered By: Mynor Underwood on 05-30-2025 Sodium [Moles/Vol] 135 mmol/L 133-[address] [facility] White blood cell (WBC) count Ordered By: Mynor Underwood on 05-30-2025 WBC (Bld) [#/Vol] 10.7 10*3/uL 4.4-11.0 [facility] Electrocardiogram reportOrde red By: Marlon Ballard on 02-22-2025 EKG study [facility] Cardiovascular Services [address] [place] [address] 12 Lead EKG 02/20/25 1301 MR#: [id number] Acct: [id number] Name: CAMILOREJINELSON DENTON Rep #:[id number] : 1950 74 From: Marlon henson MD Attending Dr: ROSE MARIE Gardner St atus: REG CLI Ordering Dr: Rayna Moctezuma Date: 02/20/25 Location: PSN Sex: F C Admitted: Test Reason : PREOP Blood Pressure : */* mmHG Vent. Rate : 62 BPM Atrial Rate : 62 BPM P-R Int : 166 ms QRS Dur : 70 ms QT Int : 422 ms P-R-T Axes : 36 28 47 degrees QTcB Int : 428 ms Normal sinus rhythm Septal infarct , age undetermined Abnormal ECG Confirmed by Marlon Ballard ([id number]), medical editor YASH MCGARRY ([id number]) on 02/22/2025 10:08:27 AM Referred By: Rayna Moctezuma Confirmed By: Marlon Ballard 02/22/25 1008 Date _ Marlon Ballard MD CC: ROSE MARIE Gardner; Dr. Mynor Underwood MD ~ Signed [facility] Other 12 Lead EKGon 02-20-2025 12 Lead EKG [facility] Cardiovascular Services [address] [place] [address] 12 Lead EKG 02/20/25 1301 MR#: [id number] Acct: [id number] Name: REJI FOLEY Rep #: [id number] : 1950 74 From: Marlon Ballard MD Attending Dr: ROSE MARIE Gardner Status: REG CL I Ordering Dr: Rayna Moctezuma Date: 02/20/25 Location: PSN Sex: F C Admitted: Test Reason : PREOP Blood Pressure : */* mmHG Vent. Rate : 62 BPM Atrial Rate : 62 BPM P-R Int : 166 ms QRS Dur : 70 ms QT Int : 422 ms P-R-T Axes : 36 28 47 degrees QTcB Int : 428 ms Normal sinus rhythm Septal infarct , age undetermined Abnormal ECG Confirmed by Marlon Ballard ([id number]), medical editor YASH MCGARRY ([id number]) on 02/22/2025 10:08:27 AM Referred By: Rayna Moctezuma Confirmed By: Marlon Ballard 02/22/25 1008 Date Marlon Ballard MD CC: ROSE MARIE Gardner; Dr. Mynor Underwood MD Signed Normal [facility] Anion gap in Serum or Plasma Ordered By: Rayna Moctezuma on 02-20-2025 Anion gap [Moles/Vol] 11 mmol/L 02-22 [facility] BUN/creatinine ratioOrdered By: Rayna Moctezuma on 02-20-2025 Urea nitrogen/Creatinine [Mass ratio] 19.2 mg/mg 07-30 [facility] Basic Metabolic Profile (BMP )on 02-20-2025 BUN/CRE 19.2 RATIO Normal 07-30 [facility] Comment on above: Performed By: #### L 100.0625, L500.2500 #### [facility] [address] [place], [address] Calcium [Mass/Vol] 8.9 mg/dL Normal 7.6-11.[address] [facility] Comment on above: Performed By: #### L 100.0625, L500.2500 #### [facility] [address] [place], [address] Chloride [Moles/Vol] 99 mmol/L Normal 98-108 [facility] Comment on above: Performed By: #### L 100.0625, L500.2500 #### [facility] [address] [place], [address] CO2 [Moles/Vol] 20.5 mmol/L Low 21.0-32.0 [facility] Comment on above: Performed By: #### L 100.0625, L500.2500 #### [facility] [address] [place], [address] Creatinine [Mass/Vol] 1.55 mg/dL High 0.70-1.20 [facility] Comment on above: Performed By: #### L 100.0625, L500.2500 #### [facility] [address] [place], [address] GAP 11 Normal 5-15 [facility] Comment on above: Performed By: #### L 100.0625, L500.2500 #### [facility] [address] [place], [address] GFR/1.73 sq M.predicted among non-blacks MDRD (S/P/Bld) [Vol rate/Area] 35 mL/min/{1.73_m2} Low >60 [facility] Comment on above: Result Comment: mL/m in/1.73m2 CKD-EPI Creatinine Equation (2020) Performed By: #### L 100.0625, L500.2500 #### [facility] [address] [place], [address] Glucose [Mass/Vol] 94 mg/dL Normal 70-[address] [facility] Comment on above: Performed By: #### L 100.0625, L500.2500 #### [facility] [address] [place], [address] Potassium [Moles/Vol] 5.2 mmol/L High 3.3-5.1 [facility] Comment on above: Performed By: #### L 100.0625, L500.2500 #### [facility] [address] [place], [address] Sodium [Moles/Vol] 130 mmol/L Low 133-[address] [facility] Comment on above: Performed By: #### L 100.0625, L500.2500 #### [facility] [address] [place], [address] Urea nitrogen [Mass/Vol] 30 mg/dL High 4-19 [facility] Comment on above: Performed By: #### L 100.0625, L500.2500 #### [facility] [address] [place], [address] Carbon dioxide, total [Moles /volume] in Central venous bloodOrdered By: Rayna Moctezuma on 02-20-2025 CO2 [Moles/Vol] 20.5 mmol/L Low 21.0-32.0 [facility] Chloride assayOrdered By: Mary Moctezuma on 02-20-2025 Chloride [Moles/Vol] 99 mmol/L 98-108 [facility] Glomerular filtration rate ( GFR) estimation/1.73 sq m using serum, plasma, or whole bOrdered By: Rayna Moctezuma on 02-20-2025 GFR/1.73 sq M.predicted among non-blacks MDRD (S/P/Bld) [Vol rate/Area] 35 mL/min/{1.73_m2} Low >60 [facility] Comment on above: mL/min/1.73m2 CKD-EP I Creatinine Equation (2020) PLATELET COUNTon 02-20-2025 Platelets (Bld) [#/Vol] 469 10*3/uL High 150-450 [facility] Comment on above: Performed By: #### L 100.0625, L500.2500 #### [facility] [address] [place], [place], [address] Platelet countOrdered By: Mary Moctezuma on 02-20-2025 Platelets (Bld) [#/Vol] 469 10*3/uL High 150-450 [facility] Potassium measurement (mass/ volume)Ordered By: Rayna Moctezuma on 02-20-2025 Potassium (Unsp spec) [Mass/Vol] 5.2 mmol/L High 3.3-5.1 [facility] Serum creatinine measurement (mass/volume)Ordered By: Rayna Moctezuma on 02-20-2025 Creatinine [Mass/Vol] 1.55 mg/dL High 0.70-1.20 [facility] Serum glucose measurement (m ass/volume)Ordered By: Rayna Moctezuma on 02-20-2025 Glucose [Mass/Vol] 94 mg/dL 70-[address] [facility] Serum or plasma calcium joe urement (mass/volume)Ordered By: Rayna Moctezuma on 02-20-2025 Calcium [Mass/Vol] 8.9 mg/dL 7.6-11.[address] [facility] Serum or plasma urea nitroge n measurement (mass/volume)Ordered By: Rayna Moctezuma on 02-20-2025 Urea nitrogen [Mass/Vol] 30 mg/dL High 4-19 [facility] Sodium levelOrdered By: Stacey Moctezuma on 02-20-2025 Sodium [Moles/Vol] 130 mmol/L Low 133-[address] [facility] Brain/Head without Contrasto n 02-12-2025 Brain/Head without Contrast [facility] Imaging Services [address] [place] [address] Brain/Head without Contrast MR#: [id number] Acct: [id number] Name: REJI FOLEY Rep #: [id number] : 1950 F 74 From: Thaddeus Hope MD PCP: Dr. Mynor Underwood MD Status: REG ER Study: Brain/Head without Contrast Date of Exam: 03/04 Exam# [id number] Ordering Dr: Jan Mata DO PROCEDURE: BRAIN/HEAD WITHOUT CONTRAST 02/12/2025 REASON FOR EXAM: FALL TECHNIQUE: Head CT without intravenous contrast. Coronal and Sagittal reconstruction series were provided. One or more dose reduction techniques were used (e.g., Automated exposure control, adjustment of the mA and/or kV according to patient size, use of iterative reconstruction technique. RADIATION DOSE SUMMARY: CTDlvol: 44.99 mGy DLP: 796.11 mGycm COMPARISON: 10/30/2021 FINDINGS: No intracranial hemorrhage, mass effect or calvarial fracture. The ventricles are unchanged in size and remain midline. Now old area of encephalomalacia posterior medial left parietooccipital from previous site of infarct. Volume loss, atrophy again noted. Possible small mucous retention cyst partially imaged inferior left maxillary sinus. The other visualized paranasal sinuses, mastoids and orbits appear within limits. CT/Brain/Head without Contrast IMPRESSION: No intracranial hemorrhage, mass effect or calvarial fracture. Reading Location: [facility] CC: Dr. Mynor Underwood MD; Dr. Jan Mata DO Heel Slicker: Signed [facility] Emergency Department Summary on 02-12-2025 Emergency Department Summary [facility] Medical Records Department [address] [place] [address] Emergency Department Summary 02/12/25 MR#: [id number] Acct: [id number] Name: REJI FOLEY Rep #: [id number] : 1950 74 From: Jan Balderrama PCP: Dr. Mynor Underwood MD Status:REG ER Location: ED HPI History of Present Illness Chief Complaint: Upper Extremity Injury Informant: patient and family Narrative Narrative: [id number] female presents by EMS from home. Patient reports had a fall in her living room. Pain the left shoulder. She does admit to drinking alcohol and we discussed how often, she reports whenever I want to. She lives alone. She called her children who called EMS. She has had fractures in the past. Denies headache neck pain chest pain back pain. Denies pain to the lower extremities. She does not ambulate any assistance. Reports carpeted floor where she fell. No current anticoagulation as she has had hemorrhagic stroke in the past with paroxysmal A-fib history. Prior similar symptoms: Yes [facility] Medical History Contact dermatitis due to poison ulisses Ischemic stroke (10/30/21) Hypertension Tobacco abuse Pericardial effusion Syncope and collapse Dizziness and giddiness Supraventricular arrhythmia Paroxysmal atrial fibrillation Sinus tachycardia Pericardial effusion Atrial fibrillation Supraventricular tachycardia Syncope Home Medications ???Medication ???Instructions ???Recorded ???Last Taken ???Type prednisolone acetate 0.12 % eye 1 drp LEFT EYE DAILY 02/21/15 2 Da ys Ago History drops,suspension 10/28/21 escitalopram oxalate 20 mg tablet 20 mg PO DAILY 12/01/22 Unknown H istory acyclovir 800 mg tablet 800 mg PO DAILY 12/07/23 Unknown H istory buspirone 7.5 mg tablet 7.5 mg PO BID 12/07/23 Unknown His tory diphenoxylate-atropi ne 2.5 1 tab PO TID 12/07/23 Unknown Hist ory mg-0.025 mg tablet gabapentin 300 mg capsule 300 mg PO ONCE PRN 12/07/23 Unknow n History amlodipine 5 mg tablet 5 mg PO DAILY #90 tabs 12/06/24 Un known Rx atorvastatin 40 mg tablet 40 mg PO DAILY #90 tabs 12/06/24 U nknown Rx losartan 50 mg tablet 50 mg PO DAILY #90 tabs 12/06/24 U nknown Rx propranolol 80 mg tablet 80 mg PO BID #180 tabs 01/02/25 Un known Rx clonazepam 0.5 mg tablet 0.5 mg PO BID PRN 01/25/25 Unknown History docusate sodium 100 mg capsule 100 mg PO BID #60 caps 02/12/25 Un known Rx (Colace) oxycodone-acetaminop hen 5 mg-325 1 tab PO Q6H PRN PRN Pain 3 days 0 02/12/25 Unknown Rx mg tablet #12 TABLETS Allergy/AdvReac Type Severity Reaction Status Date / Time No Known Allergies Allergy Verified 01/25/25 14:32 Surgical History History of surgery on upper extremity ( 03/2023) History of tubal ligation History of tonsillectomy corneal transplant History of corneal transplant Social History Smoking Status: Current every day smoker tobacco type: cigarettes how long ago did patient quit smokin years ago alcohol intake: current alcohol intake frequency: holidays/special occasions only substance use type: does not use and other details: CBD vape caffeine: No what type of physical activity do you participate in: none ROS ROS ED Constitutional Constitutional ED: Denies fever(s) Cardiovascular Cardiovascular: Denies chest pain Respiratory/Chest Respiratory/Chest: Denies cough Gastrointestinal Gastrointestinal: Denies diarrhea or vomiting Musculoskeletal Musculoskeletal: Reports other Details: Left shoulder pain ; Denies none, back pain or neck pain Integumentary Denies rash or wounds Neurologic Neurologic: Denies weakness EXAM Physical Exam Const Vital Signs: 02/12/25 03:01 Temperature 96.7 F L Temperature Source Oral Pulse Rate 68 Respiratory Rate 20 H Blood Pressure 119/66 Blood Pressure Mean 83 Pulse Ox 97 Oxygen Delivery Method Room Air Positive well nourished and well developed Constitutional Narrative: GCS 15. General Appearance ED: well developed and NAD HEENT Reports moist mucous membranes normocephalic and atraumatic Eyes General Eye ED: Yes normal appearance of both eyes Neck full ROM Neck Narrative: No midline tenderness. Chest Wall inspection of chest normal and palpation of chest normal Chest: Negative for tenderness Resp normal respiratory effort and normal air movement Effort and Inspection: symmetric chest movement; Negative for respiratory distress Cardio regular rate, regular rhythm and no murmurs Peripheral Pulses: pulses 2+ throughout GI normal to inspection, nondistended, normoactive bowel sounds and non-tender Palpation: Negative for guar (more content not included)... [facility] Humerus min 2 Viewson 2024 Humerus min 2 Views [facility] Imaging Services [address] [place] [address] Humerus min 2 Views MR#: [id number] Acct: [id number] Name: REJI FOLEY Rep #: [id number] : 1950 F 74 From: Thaddeus Hope MD PCP: Dr. Mynor Underwood MD Status: REG ER Study: Humerus min 2 Views Date of Exam: 02/12/25 Exam# [id number] Ordering Dr: Jan Mata DO EXAM: DX humerus minimum two views CLINICAL HISTORY: Injury COMPARISON: None available TECHNIQUE: Two views left humerus, 3 total images FINDINGS: Acute comminuted fracture of the proximal left humerus diaphysis and metadiaphysis with multiple fracture fragments and significant appearing displacement, recommend orthopedic consult. RAD/Humerus min 2 Views IMPRESSION: Acute comminuted fracture of the proximal left humerus diaphysis and metadiaphysis with multiple fracture fragments and significant appearing displacement, recommend orthopedic consult. Reading Location: [id number] CC: Dr. Mynor Underwood MD; Dr. Jan Mata DO Heel Slicker: Signed [facility] Shoulder min 2 Viewson 02-12 Shoulder min 2 Views [facility] Imaging Services [address] [place] [address] Shoulder min 2 Views MR#: [id number] Acct: [id number] Name: REJI FOLEY Rep #: [id number] : 1950 F 74 From: Thaddeus Hope MD PCP: Dr. Mynor Underwood MD Status: REG ER Study: Shoulder min 2 Views Date of Exam: 02/12/25 Exam# [id number] Ordering Dr: Jan Mata DO PROCEDURE: SHOULDER MIN 2 VIEWS 02/12/2025 REASON FOR EXAM: INJURY TECHNIQUE: Three views left shoulder COMPARISON: None available FINDINGS: Comminuted butterfly fracture proximal humerus with significant appearing displacement. No glenohumeral joint dislocation. Mild AC joint osteoarthrosis. Visualized left lung appears clear. Cervical multilevel left facet degenerative changes. RAD/Shoulder min 2 Views IMPRESSION: Comminuted butterfly fracture proximal humerus with significant appearing displacement. Reading Location: [facility] CC: Dr. Mynor Underwood MD; Dr. Jan Mata DO Heel Slicker: Signed [facility] Cardiology Visit Reporton Cardiology Visit Report [facility] [address] [place] [address] OFFICE VISIT Date of Service: 01/25/25 MR#: [id number] Acct: [id number] Name: REJI FOLEY Rep #: [id number] : 1950 Provider: Dr. Bob Castellanos MD Age/Sex: 74/F Location: [facility] Status: Signed HPI HPI History of Present Illness Details: This is a 74-year-old female with past medical history of paroxysmal atrial fibrillation, mild mitral regurgitation, former cigarette smoker, or hypertension. Patient presented to [facility] ER on 10/30/2021 for a general illness. She was transferred to [facility] for hemorrhagic stroke evaluation with noted findings on brain MRI. Her EKG on 10/30/2021 showed normal sinus rhythm. She denies chest, arm, jaw, or neck discomfort. She denies symptoms of shortness of breath with exertion, shortness of breath at rest, orthopnea, PND, sudden weight gain, or bilateral lower extremity edema. She denies chronic cough. She denies palpitations, lightheadedness, dizziness, near syncope, or syncopal episodes. She denies claudication issues. She denies fever or chills. She denies blood in urine, blood in stool, or epistaxis. She denies myalgia. She acknowledges ongoing fatigue that is unchanged from previous. Her exercise tolerance is stable. She acknowledges vision changes that she attributes to recent CVA. She also complains of some intermittent headaches. Intake Vital Signs 12/07/23 15:04 01/25/25 14:29 Height 5 ft 5 ft Weight: 138 lb BMI 26.9 BP 128/72 H Blood Pressure Location Lt brachial Position Sitting Respiration 16 Pulse 64 Pulse Source Monitor Intake Visit Reasons: 1 Y FU Casting Assistant Required: No Accompanied by: Daughter Is patient in pain?: No Allergies No Known Allergies Allergy (Verified 01/25/25 14:32) Medications ???Medication ???Instructions ???Recorded ???Confirmed ???Type prednisolone acetate 0.12 % eye 1 drp LEFT EYE DAILY 02/21/1501/09 History drops,suspension escitalopram oxalate 20 mg tablet 20 mg PO DAILY 12/01/22 01/25/25 History acyclovir 800 mg tablet 800 mg PO DAILY 12/07/23 01/25/25 History buspirone 7.5 mg tablet 7.5 mg PO BID 12/07/23 01/25/25 Hi story diphenoxylate-atropi ne 2.5 1 tab PO TID 12/07/23 01/25/25 His tory mg-0.025 mg tablet gabapentin 300 mg capsule 300 mg PO ONCE PRN 12/07/23 History amlodipine 5 mg tablet 5 mg PO DAILY #90 tabs 12/06/24 Rx atorvastatin 40 mg tablet 40 mg PO DAILY #90 tabs 12/06/24 0 01/25/25 Rx losartan 50 mg tablet 50 mg PO DAILY #90 tabs 12/06/24 0 01/25/25 Rx propranolol 80 mg tablet 80 mg PO BID #180 tabs 01/02/25 Rx clonazepam 0.5 mg tablet 0.5 mg PO BID PRN 01/25/25 5 History Have you fallen in the past year?: No PFSH Medical History Contact dermatitis due to poison ulisses Ischemic stroke (10/30/21) Hypertension Tobacco abuse Pericardial effusion Syncope and collapse Dizziness and giddiness Supraventricular arrhythmia Paroxysmal atrial fibrillation Sinus tachycardia Pericardial effusion Atrial fibrillation Supraventricular tachycardia Syncope Surgical History History of surgery on upper extremity ( 03/2023) History of tubal ligation History of tonsillectomy corneal transplant History of corneal transplant Social History Smoking Status: Former smoker how long ago did patient quit smokin years ago alcohol intake: current alcohol intake frequency: holidays/special occasions only substance use type: does not use and other details: CBD vape caffeine: No what type of physical activity do you participate in: none ROS Const Const: Positive for headache(s); Negative for fatigue, weakness, daytime sleepiness or difficulty sleeping ENT ENT: Positive for headache(s); Negative for dizziness or Nosebleed/epistaxis Cardio Chest Pain: No Palpitations: No Edema: None Resp Respiratory: Positive for SOB with activity; Negative for SOB at rest, SOB orthopnea SOB lying down or Cough GI GI: Negative nausea, vomiting or heartburn Neuro Neuro: Positive for headache(s); Negative for dizziness, lightheadedness, near syncope or weakness Endo Endo: Negative for fatigue Cardiology Exam Const Appearance: cooperative, healthy appearing, comfortable and no acute distress Nutritional Appearance: well nourished and obese Orientation: alert, awake and oriented x3 Head Head: normal to inspection Ears: hearing grossly normal bilaterally Nose: external nose normal Face and Sinus: face symmetric Mouth: moist mucous membranes Eyes General: appearan (more content not included)... [facility] Office Visiton 05-31-2023 Follow-up visit [id number] Reji Foley 1950 F Date Provider Department Center 05/31/2023 [id number] [facility] OR None No family history on file Level of Service:74614 ME POSTOP FOLLOW UP VISIT RELATED TO ORIGINAL PX Reason for Visit and Comments: Post-op [483] - DOS 04/09/2023- Left?ulnar nerve decompression at the elbow (in situ), left first dorsal compartment release, left first CMC corticosteroid injections Normal [facility] PATIIMANon 05-31-2023 PATINS HOW TO USE VOLTAREN GEL: Voltaren dosing card Read the label and use the enclosed dosing card. Do not use on more than two body areas at the same time. Dosage Using the dosing card, apply the following amounts: Small joint areas (hand, wrist, elbow, ankle): 2.25 inches Larger joint areas (shoulder, knee, foot): 4.5 inches Voltaren being applied to the knee instuctions: Rub gently into affected area. It is intended to be used 4 times a day everyday for up to 21 days. With 9-yydhu-o-day use, you may start to feel relief within a few days. DRUG INFORMATION: Diclofenac topical Pronunciation: dye KLOE sandra ak SANDY ik al Brand: DST Plus Den, Pennsaid, Solaraze, Voltaren Topical What is the most important information I should know about diclofenac topical? Diclofenac can increase your risk of fatal heart attack or stroke, especially if you use it usp or take high doses, or if you have heart disease. Do not use this medicine just before or after heart bypass surgery (coronary artery bypass graft, or CABG). Diclofenac may also cause stomach or intestinal bleeding, which can be fatal. These conditions can occur without warning while you are using diclofenac, especially in older adults. What is diclofenac topical? Diclofenac is a nonsteroidal anti-inflammatory drug (NSAID). Diclofenac topical (for the skin) is used to treat joint pain caused by osteoarthritis. Pennsaid is for use on the knees. Voltaren Topical is for use on the hands, wrists, elbows, knees, ankles, or feet. This medicine may not be effective in treating arthritis pain elsewhere in the body. Solaraze is used to treat warty overgrowths of skin (actinic keratoses) on sun-exposed areas of the body. Diclofenac topical may also be used for purposes not listed in this medication guide. What should I discuss with my healthcare provider before using diclofenac topical? Diclofenac can increase your risk of fatal heart attack or stroke, especially if you use it usp or take high doses, or if you have heart disease. Even people without heart disease or risk factors could have a stroke or heart attack while taking this medicine. Do not use this medicine just before or after heart bypass surgery (coronary artery bypass graft, or CABG). Diclofenac may also cause stomach or intestinal bleeding, which can be fatal. These conditions can occur without warning while you are using diclofenac, especially in older adults. You should not use this medicine if you are allergic to diclofenac (Voltaren, Cataflam, Flector, and others), or if you have ever had an asthma attack or severe allergic reaction after taking aspirin or an NSAID. Diclofenac topical is not approved for use by anyone younger than 18 years old. Tell your doctor if you have ever had: heart disease, high blood pressure, high cholesterol, diabetes, or if you smoke; a heart attack, stroke, or blood clot; stomach ulcers, bleeding in your stomach or intestines; asthma; liver or kidney disease; fluid retention. Diclofenac can affect ovulation and it may be harder to get while you are using this medicine. However, using diclofenac topical during the last 3 months of may harm the unborn baby. Tell your doctor if you are or plan to become . It may not be safe to breast-feed while using this medicine. Ask your doctor about any risk. How should I use diclofenac topical? Follow all directions on your prescription label and read all medication guides. Use the lowest dose that is effective in treating your condition. Do not take by mouth. Topical medicine is for use only on the skin. Rinse with water if this medicine gets in your eyes or mouth. Read and carefully follow any Instructions for Use provided with your medicine. Ask your doctor or pharmacist if you do not understand these instructions. Do not apply diclofenac topical to an open skin wound, or on areas of infection, rash, burn, or peeling skin. Store at room temperature away from moisture and heat. Do not freeze. Store Pennsaid in an upright position. What happens if I miss a dose? Apply the medicine as soon as you can, but skip the missed dose if it is almost time for your next dose. Do not apply two doses at one time. What happens if I overdose? Seek emergency medical attention or call the Poison Help line at . What should I avoid while using diclofenac topical? Ask a doctor or pharmacist before using other medicines for pain, fever, swelling, or cold/flu symptoms. They may contain ingredients similar to diclofenac (such as aspirin, ibuprofen, ketoprofen, or naproxen). Avoid drinking alcohol. It may increase your risk of stomach bleeding. Avoid exposing treated skin to heat, sunlight, or tanning beds. Heat can increase the amount of diclofenac you absorb through your skin. Avoid getting this medicine in your eyes. If contact does occur, (more content not included)... [facility] Progress Noteon 05-31-2023 Progress Note [facility] [address] [place] [address] [place] [id number] Dept: [phone] Dept 05/31/2023 Chief Complaint Patient presents with Post-op DOS 04/09/2023- Left ulnar nerve decompression at the elbow (in situ), left first dorsal compartment release, left first CMC corticosteroid injections SUBJECTIVE Reji is approximately 2 month(s) s/p Left ulnar nerve decompression at the elbow (in situ), left first dorsal compartment release, left first CMC corticosteroid injections, DOS 04/09/2023. Pain is mild and intermittent in fashion. She notes that her numbness and tingling has improved, but has not resolved. She notes that she is having recurring pain in her left thumb/wrist region. She is no longer taking anything for pain. She denies significant complaints other than the expected amount of pain. Patient reports that she has been doing well since her last appointment. She reports continued improvement in her numbness and tingling symptoms postoperatively. She reports approximately 90 to 95% improvement. She also states that she has significant improvement in her radial sided wrist pain. She is no longer needing for pain control. She does notice that the base of her thumb pain got better after the injection during the surgery but has gradually gotten worse over the past couple weeks. OBJECTIVE Ht 5' (1.524 m) Wt 150 lb (68 kg) BMI 29.29 kg/m? Ortho Exam Focused Exam of the LEFT Upper Extremity Skin: appropriately healing incision(s) without evidence of infection Edema: no evidence of edema Palpation: non tender to palpation throughout ROM: full functional ROM of the shoulder, elbow, wrist, and hand Left Elbow ROM: Flexion Full Extension Hyperextends 20 degrees Supination Full Pronation Full Wrist ROM: Flexion 65? Extension 65? Stability: no evidence of joint instabilities Motor: Intact in the hand - able to fire AIN, PIN, and Ulnar nerves Sensation: LEFT Hand 2-point discrimination (mm) Thumb Index Long Ring Small r u r u r u r u r u 5 5 5 5 5 5 5 5 5 5 Median Ulnar Perfusion: Brisk capillary refill in all 5 digits IMAGING NONE ASSESSMENT Encounter Diagnoses Name Primary? Cubital tunnel syndrome on left De Quervain's tenosynovitis, left Osteoarthritis of carpometacarpal (CMC) joint of left thumb, unspecified osteoarthritis type S/P decompression of ulnar nerve at elbow PLAN Reji is recovering well from surgery. He has approximately 90-95% improvement in her numbness and tingling symptoms postoperatively. She has improved pain after surgery when compared to before surgery. She is continue to notice improvement in her symptoms. At this time I would like Reji to gradually resume normal activities. She can gradually advance her weightbearing using pain as a guide. She can work full active and passive range of motion of the fingers hand and wrist. She was given information on Voltaren gel and the Comfort Cool brace for her CMC arthritis of her thumb. She was educated expected course of recovery. She is educated that she must wait least 3 months after the date of injection before she can have a repeat injection. She verbalized understanding. She will follow-up with me on an as-needed basis. She will call the office with any questions or concerns or when she would like to get a repeat CMC joint injection. She verbalized understanding and is in agreement this plan. Immobilization: NO immobilization required at this point - FULL ROM encouraged without resitrictions Weight Bearing: Weight Bearing As Tolerated Rehabilitation: NO formal rehabilitation required at this point. Follow-up: Reji will followup with me on an as needed basis. She knows to call the office with any questions or concerns in the interim. Future Imaging: NONE Ninfa Garcia PA-C to Dr. Karan Chavez Orthopaedic Surgery Hand and Upper Extremity 05/31/2023 at 1:27 PM (Please note that portions of this note may have been completed with a voice recognition program. Efforts were made to edit the dictations but occasionally words are mis-transcribed.) Normal [facility] Basophil percentageOrdered B y: Mynor Underwood on 05-27-2023 Chloride [Moles/Vol] 111 mmol/L 98-[address] [facility] Cholesterol [Mass/Vol] 129 mg/dL <200 [facility] Comment on above: <200 mg/dL Desirable 200-240 mg/dL Borderline >240 mg/dL High Risk Glucose [Mass/Vol] 93 mg/dL 74-[address] [facility] Potassium [Moles/Vol] 4.1 mmol/L 3.5-5.1 [facility] Sodium [Moles/Vol] 138 mmol/L 136-[address] [facility] Triglyceride [Mass/Vol] 123 mg/dL <199 [facility] Comment on above: The drugs N-Acetylcy steine and Metamizole may falsely depress this assay.Serum Triglycerides Reference Interval Normal <150 mg/dL Borderline high 150 - 199 mg/dL High 200 - 499 mg/dL Very High > or = 500 mg/dL Laboratory - Chemistry and C hemistry - challengeOrdered By: Mynor Underwood on 05-27-2023 CO2 [Moles/Vol] 21.0 mmol/L 21.0-32.0 [facility] Urea nitrogen/Creatinine [Mass ratio] 15.2 mg/mg 10-20 [facility] No Panel InformationOrdered By: Mynor Underwood on 05-27-2023 Estimated GFR (MDRD) Amer 71 mL/min >60 [facility] Comment on above: GFR Calc Estimated GFR (MDRD) Non-Af Amer 59 mL/min >60 [facility] Comment on above: Non- GFR Calc Serum or plasma calcium joe urement (mass/volume)Ordered By: Mynor Underwood on 05-27-2023 Calcium [Mass/Vol] 8.5 mg/dL 8.5-10.[address] [facility] Serum or plasma cholesterol in HDL measurement (mass/volume)Ordered By: Mynor Underwood on 05-27-2023 Cholesterol in HDL [Mass/Vol] 43 mg/dL >40 [facility] Comment on above: The drugs N-Acetylcy steine and Metamizole may falsely depress this assay. Reference Range HDL <40 mg/dL Low HDL Cholesterol HDL >or= 60 mg/dL High HDL Cholesterol Serum or plasma cholesterol in VLDL measurement (mass/volume)Ordered By: Mynor Underwood on 05-27-2023 Cholesterol in VLDL [Mass/Vol] 25 mg/dL 5-40 [facility] Serum or plasma creatinine m easurement (mass/volume)Ordered By: Mynor Underwood on 05-27-2023 Creatinine [Mass/Vol] 0.99 mg/dL 0.55-1.02 [facility] Comment on above: The validity of the calculated GFR & GFRAA in patients over 70 years has not been determined. Clinical correlation is essential. Serum or plasma low density lipoprotein (LDL) cholesterol measurement (mass/volume)Ordered By: Mynor Underwood on 05-27-2023 Cholesterol in LDL [Mass/Vol] 61 mg/dL 0-130 [facility] Serum or plasma urea nitroge n measurement (mass/volume)Ordered By: Mynor Underwood on 05-27-2023 Urea nitrogen [Mass/Vol] 15 mg/dL 7-18 [facility] Thin prep Papanicolaou smear with manual screeningOrdered By: Mynor Underwood on 05-27-2023 Thin prep Papanicolaou smear with manual screening 6 5-15 [facility] Office Visiton 04-19-2023 Follow-up visit [id number] Reji Foley 1950 F Date Provider Department Center 04/19/2023 [id number] [facility]ARC[facility] OR None No family history on file Level of Service:87458 ME POSTOP FOLLOW UP VISIT RELATED TO ORIGINAL PX Reason for Visit and Comments: Post-op [483] - DOS 04/09/2023- Left ulnar nerve decompression at the elbow (in situ), left first dorsal compartment release, left first CMC corticosteroid injections Normal [facility] PATINSon 04-19-2023 PATIIMAN Finger: Rehab Exercises Your Care Instructions Here are some examples of typical rehabilitation exercises for your condition. Start each exercise slowly. Ease off the exercise if you start to have pain. Your doctor or your physical or occupational therapist will tell you when you can start these exercises and which ones will work best for you. How to do the exercises Finger extension Place your hand flat on a table, palm down. Lift and then lower your affected finger off the table. Repeat 8 to [address] times[address] your good hand on a table, palm up. Put your hand with the affected finger on top of your good hand with your fingers wrapped around the thumb of your good hand like you are making a fist. Slowly uncurl the joints of your hand with the affected finger where your fingers connect to your hand so that only the top two joints of your fingers are bent. Your fingers will look like a hook. Move back to your starting position, with your fingers wrapped around your good thumb. Repeat 8 to 12 times. DIP flexion With your good hand, grasp your affected finger. Your thumb will be on the top side of your finger just below the joint that is closest to your fingernail. Slowly bend your affected finger only at the joint closest to your fingernail. Hold for about 6 seconds. Repeat 8 to 12 times. PIP extension (with MP extension) Place your good hand on a table, palm up. Put your hand with the affected finger on top of your good hand. Use the thumb and fingers of your good hand to grasp below the middle joint of your affected finger. Bend and then straighten the last two joints of your affected finger. Repeat 8 to 12 times. Isolated PIP flexion Place the hand with the affected finger flat on a table, palm up. With your other hand, press down on the fingers that are not affected. Your affected finger will be free to move. Slowly bend your affected finger. Hold for about 6 seconds. Then straighten your finger. Repeat 8 to 12 times. Imaginary ball squeeze Pretend to hold an imaginary ball. Slowly bend your fingers around the imaginary ball, and squeeze the ball for about 6 seconds. Then slowly straighten your fingers to release the ball. Repeat 8 to 12 times. Tendon glides In this exercise, the steps follow one another to a make a continuous movement. Hold your hand upward. Your fingers and thumb will be pointing straight up. Your wrist should be relaxed, following the line of your fingers and thumb. Curl your fingers so that the top two joints in them are bent, and your fingers wrap down. Your fingertips should touch or be near the base of your fingers. Your fingers will look like a hook. Make a fist by bending your knuckles. Your thumb can gently rest against your index (pointing) finger. Unwind your fingers slightly so that your fingertips can touch the base of your palm. Your thumb can rest against your index finger. Move back to your starting position, with your fingers and thumb pointing up. Repeat the series of motions 8 to [address] a small towel roll on a table. With your palm facing down, grab the towel and squeeze it for about 6 seconds. Then slowly straighten your fingers to release the towel. Repeat 8 to 12 times. Towel grab Fold a small towel in half, and lay it flat on a table. Put your hand flat on the towel, palm down. Grab the towel, and scrunch it toward you until your hand is in a fist. Slowly straighten your fingers to push the towel back so it is flat on the table again. Repeat 8 to 12 times. Normal [facility] Progress Noteon 04-19-2023 Progress Note Subjective: Reji is approximately 10 day(s) s/p Left ulnar nerve decompression at the elbow (in situ), left first dorsal compartment release, left first CMC corticosteroid injections, DOS 04/09/2023. Pain is moderate. She is no longer taking anything for pain. She reports improvement in her numbness and tingling in her ring finger, but it still persists in her small finger. She denies drainage from her incision. Her left thumb is still painful after her corticosteroid injection. Reports that she has been doing well since her surgery. She reports her pain is controlled and she is no longer tingling for pain control. She reports on a percent resolution her numbness and tingling symptoms in her ring finger and some improvement in her small finger. She reports continued pain at the base of her thumb and over her first dorsal compartment. She reports intact incision without erythema edema drainage or wound separation. Denies fever and chills. Objective: Ht 5' (1.524 m) Wt 150 lb (68 kg) BMI 29.29 kg/m? Ortho Exam Left Upper Extremity Skin: Incision(s) is healing appropriately. No drainage. Minimal surrounding erythema, no wound separation, no warmth Edema: Minimal surrounding edema. Perfusion: Brisk capillary refill to all digits with 2+ radial pulse. Palpation: Tender to palpation along the left CMC joint as well as along her surgical incisions, as expected. Sensation: LEFT Hand 2-point discrimination (mm) Thumb Index Long Ring Small r u r u r u r u r u 5 5 5 5 5 5 5 5 5 5 Median Ulnar ROM: Elbow (active): Flexion 140 deg Extension 0 deg Supination full Pronation full No ulnar nerve subluxation. Wrist (active): Flexion 75? Extension 85? LEFT Thumb CMC (nl 45?/60?) MCP (nl 10?H/60?) IP (nl 15?H/80?) Palmar Abduction Normal Extension 30? hyperextension 0? Radial Abduction Normal Flexion 55? 70? *(Passive values entered only if different than active; otherwise = AROM) Opposes to head of fifth metacarpal Fingers flex to palm and fully extend Clinical Photo(s): XRay: None Assessment Diagnosis Plan 1. Cubital tunnel syndrome on left 2. De Quervain's tenosynovitis, left 3. Osteoarthritis of carpometacarpal (CMC) joint of left thumb 4. S/P decompression of ulnar nerve at elbow Plan Reji is recovering well from her surgery. She is healed her incisions without signs of infection. She is starting to notice improvement in her numbness and tingling symptoms postoperatively. At this time I would like Reji to gradually return to normal activities without restrictions. The patient was advised to advance weightbearing activities using pain as a guide. Sutures were removed today in the office without complication. Expected postoperative recovery course was discussed with the patient including the length of time for nerve recovery. The patient was advised to begin nerve gliding exercises as well as perform scar tissue massage and edema control. Signs and symptoms of infection were discussed with the patient. No formal therapy is needed at this time. her questions were answered today in the office. I would like the patient to follow up in 6 week(s) for numbness and tingling check. She is comfortable with the plan. She will call the office with any questions or concerns in the interim. Immobilization: NO immobilization required at this point - FULL ROM encouraged, begin nerve gliding exercises Weight Bearing: Weight Bearing As Tolerated Rehabilitation: NO formal rehabilitation required at this point. I will see Reji back in 6 weeks to see how she is doing. Reji knows to call the office with any questions or concerns in the interim. Future Imaging: None Sutures were removed in office today. No dressing was applied to left upper extremity. Patient tolerated well with no concerns. Applied by: [facility] Ninfa Garcia PA-C to Dr. Karan Chavez Orthopaedic Surgery Hand and Upper Extremity 04/19/2023 at 1:07 PM. (Please note that portions of this note may have been completed with a voice recognition program. Efforts were made to edit the dictations but occasionally words are mis-transcribed.) Normal [facility] Airwayon 04-09-2023 SHANTA Prasad CRNA 04/09/2023 11:28 AM Airway Date/Time: 04/09/2023 11:19 AM Urgency: scheduled Airway not difficult General Information and Staff Patient location during procedure: Procedural Anesthesiologist: Dustin Denson Jr., MD Resident/CASTING MACHINE OPERATOR: SHANTA Parsad CRNA Performed: CASTING MACHINE OPERATOR Performed by: SHANTA Prasad CRNA Authorized by: SHANTA Prasad CRNA Indications and Patient Condition Indications for airway management: airway protection and anesthesia Sedation level: Asleep Preoxygenated: yes Mask difficulty assessment: 0 - not attempted Final Airway Details Final airway type: supraglottic airway Successful airway: Igel Size 4 Number of attempts at approach: 1 [facility] Nursing Noteon 04-09-2023 Nursing Note Pt and family verbalized understanding of recovery instructions, pt verbalized a readiness to be discharged home. Pt discharged home via wheelchair accompanied by RN/volunteer. Pt has had all their belongings returned to them at discharge [facility] Nursing Note Pt received from OR via cart, spont. Resp. With CASTING MACHINE OPERATOR in attendance. Placed on monitor. Monitor alarms on in PACU [facility] Op Noteon 04-09-2023 Op Note [facility] OR [address] [facility] [address] Dept: [phone] Loc: [phone] Operative Report Patient Name: Reji Foley Date of : 1950 Date of Surgery: 04/09/23 Preoperative Diagnosis: Left cubital tunnel syndrome Left DeQuervain's Tenosynovitis Left First Carpometacarpal Joint Osteoarthritis Postoperative Diagnosis: Same Procedure: Left cubital tunnel decompression Left First Dorsal Compartment Release Left First Carpometacarpal Joint Injection Surgeon: Karan Chavez MD 1st Assist: Mary Kwong PA-C 2nd Assist: None Implants: None Specimens Removed: None Anesthesia: MAC/Regional Local Anesthesia: 1% lidocaine with epinephrine (1:100,000) for a total of 20ml into the subcutaneous tissues of the operative site(s) Tourniquet: Brachium Estimated Blood Loss: <5ml Pre Operative Antibiotics: Yes Indications: Ms. Reji Foley is a 72 y.o. year-old femalewith cubital tunnel syndrome who failed conservative management and elected to proceed with operative intervention. I have discussed with her, preoperatively, the complications, limitations, expectations, alternatives, and risks of surgical intervention which she has demonstrated understanding. No guarantees were given or implied. After having all of her questions answered to her satisfaction, Ms. Reji Foley has provided written informed consent to proceed. Please see previous notes for full operative risk discussion. Procedure: Reji Foley was identified in the preoperative waiting area. Her operative site was initialed and consent was reviewed. Final questions were answered. She was brought to the operating room and placed in the supine position. All bony prominences were well padded. The operative extremity was prepped and draped in the usual sterile fashion. A surgical timeout was then performed with the patient's identification, the procedure to be performed being reviewed, verification that the patient had received preoperative antibiotics if indicated, and verification of the correct surgical site. The patient's ASA was verified by the nurse senior sales engineer and the anesthesia staff. Fire risk was assessed. An esmarch bandage was used to exsanguinate the limb and the tourniquet was inflated to 250mm Hg. Attention was turned to the radial wrist. A transverse incision was made 1 cm proximal to the radial styloid over the palpable first dorsal compartment tendon sheath. Care was taken in the subcutaneous dissection to avoid and protect the radial sensory nerve branches in the region. The soft tissue was cleared from the first dorsal compartment sheath. The sheath was incised longitudinally along its dorsal margin to visualize the APL and EPB tendons. Careful inspection did not reveal an accessory EPB compartment. At the completion of the decompression both proximally and distally, the multiple slips of the APL tendon and the EPB tendon were completely free and were brought out of the wound for close inspection. There was not significant synovitis. They were returned to their appropriate anatomic location. A curvilinear incision was made over the medial elbow. Blunt dissection was carried down to the subcutaneous tissues to identify and mobilize any branches of the medial antebrachial cutaneous nerve. The ulnar nerve was identified and decompressed from the upper brachium through Thorpe's ligament and into both the superficial and deep fascial bands of the FCU. I then passively range the elbow and noted the nerve to remain well seated in the ulnar groove. The ulnar nerve was left within the ulnar groove. The tourniquet was then deflated and hemostasis achieved with bipolar cautery and gentle compression. The wound was irrigated normal saline and local placed within the subcutaneous tissues for additional hemostasis. The skin was closed in layers followed by an impervious bandage and a simple sling. Procedure Note: Small Joint Injection The LEFT thumb CMC was identified as the injection site. I discussed the risks/benefits of a corticosteroid injection to include but not be limited to infection, subcutaneous fat atrophy, elevated blood glucose, local redness and pain. After discussion of the risk/benefits the patient elected to proceed. Under sterile conditions, the joint was injected with a mixture of 0.5 mL of 1% Lidocaine and 0.5 mL of Celestone (6mg/ml) without complication. A sterile bandage was applied. Reji tolerated the procedure well without complication. I advised Reji of the expected response, possible reactions and the instructions for care of her hand. Ms. Reji Foley was taken to the recovery room in stable condition. POST OPERATIVE PLAN Begin immediate ulnar nerve glides and gentle hand, wrist, and elbow ROM PWB 5lbs X 2 weeks Outpatient Follow-up XRays: No Karan Chavez MD 04/09/20 (more content not included)... [facility] Peripheral Blockon 3 Dustin Denson Jr., MD 04/09/2023 11:13 AM Peripheral Block Time Out: 04/09/2023 10:55 AM Patient location during procedure: Procedural Start time: 04/09/2023 10:56 AM End time: 04/09/2023 11:05 AM Reason for block: at surgeon's request and post-op pain management Staffing Performed: anesthesiologist Anesthesiologist: Dustin Denson Jr., MD Preanesthetic Checklist Completed: patient identified, IV checked, site marked, risks and benefits discussed, surgical consent, monitors and equipment checked, pre-op evaluation and timeout performed Region: Upper Extremities Primary: Supraclavicular Peripheral Block Patient position: supine Prep: ChloraPrep Patient monitoring: continuous pulse ox, heart rate and environmental monitoring technician O2: Nasal cannula Laterality: left Injection technique: single-shot Guidance: nerve stimulator and ultrasound guided -image retained in chart, tip of the needle identified by ultraound during injection. Local infiltration: lidocaine Infiltration strength: 1 % Dose: 3 mL Needle Needle: 22G X 50 mm Additional Notes Patient Position - Supine w/head elevated Nerve stimulating, Minimum current when twitches disappeared at 0.3mA Post Procedure - Patient tolerated procedure well. No complications noted 30 mL 0.375% Bupivacaine HCL with decadron sodium phosphate 0.01% & Epi 1:200,000 04/09/2023 10:56 AM Assessment Injection assessment: negative aspiration for heme, no paresthesia on injection, incremental injection and local visualized surrounding nerve on ultrasound Paresthesia pain: none Heart rate change: no Slow fractionated injection: yes Required Documentation: Relevant anatomy identified (Nerves, Vessels, Muscles), Negative for blood on aspiration, Local anesthetic injected incrementally with intermittent aspiration every 5 mL, Normal resistance with injection, Local anesthetic spread visualized around nerves or plane., No EKG changes noted, No symptoms of toxicity and No paresthesias reported by patient during injection [facility] ECG 12-LEADon 04-04-2023 ECG 12-LEAD IMPRESSION: Sinus bradycardia Borderline T abnormalities, anterior leads Electronically Signed On 04-04-2023 9:13:59 EDT by Yvette Keys [facility] PREPROCINSon 04-02-2023 PREPROCINS Medication List Accurate as of April 02, 2023 2:52 PM. Always use your most recent med list. acyclovir 200 MG capsule Commonly known as: Zovirax Notes to patient: NOT NEEDED ON DAY OF SURGERY, WILL BE DONE WITH THIS MED BY SURGERY DATE amLODIPine 5 MG tablet Commonly known as: Norvasc Medication Adjustments for Surgery: Take morning of surgery aspirin 325 MG tablet Medication Adjustments for Surgery: Stop 5 days before surgery atorvastatin 40 MG tablet Commonly known as: Lipitor Medication Adjustments for Surgery: Take morning of surgery clonazePAM 0.5 MG tablet Commonly known as: KlonoPIN Notes to patient: MAY TAKE ON DAY OF SURGERY IF NEEDED diphenoxylate-atropi ne 2.5-0.025 MG tablet Commonly known as: Lomotil Medication Adjustments for Surgery: Take morning of surgery escitalopram 20 MG tablet Commonly known as: Lexapro Medication Adjustments for Surgery: Take morning of surgery gabapentin 300 MG capsule Commonly known as: Neurontin Medication Adjustments for Surgery: Take morning of surgery losartan 50 MG tablet Commonly known as: Cozaar Notes to patient: NOT NEEDED ON DAY OF SURGERY metoprolol succinate XL 25 MG 24 hr tablet Commonly known as: Toprol-XL Notes to patient: NOT TAKING PRILOSEC PO Medication Adjustments for Surgery: Take morning of surgery propranolol 80 MG tablet Commonly known as: Inderal Medication Adjustments for Surgery: Take morning of surgery Additional Instructions: You may take your prescription pain medication. You may take Tylenol for pain. NO Motrin, ibuprofen or Advil for 24 hours prior to surgery or longer if instructed by your surgeon. NO Aleve or Naprosyn for 5 days prior to surgery or longer if instructed by your surgeon. IF YOU TAKE BLOOD THINNERS OR ASPIRIN: STOP ASPIRIN 5 DAYS PRIOR TO SURGERY. LAST DOSE ( 04/03/23) Follow any instructions given to you by Dr. SCOTT Davis with an antibacterial soap such as Dial or Safeguard or shower kit provided to you before coming to the hospital. PLEASE USE SHOWER KIT THE NIGHT BEFORE AND THE MORNING OF SURGERY. PLEASE PUT PJ'S AND CLEAN SHEETS TO THE BED THE NIGHT BEFORE SURGERY No makeup, lotion, powder, deodorant or body spays. No hair products. Remove all jewelry and leave it at home. Wear loose comfortable clothing to go home in. You may brush your teeth morning of surgery. Do not wear contacts day of surgery. YOU MAY DRINK CLEAR LIQUIDS UP UNTIL ARRIVAL TIME ( 2 HRS PREOP) No marijuana (THC), smoking or alcohol for 24 hours prior to surgery. Please arrange for a responsible adult to drive you home after your surgery and that there is a responsible adult with you for 24 hours post discharge. If you have specific questions, please call your surgeon. You will receive a call the day before your surgery to verify your arrival time and date. You will be asked to arrive at least two hours prior to your scheduled surgery time. Please bring your [facility] Surgical folder and medication list with you day of surgery. We encourage you to write down any questions you may have for the surgeon, anesthesiologist, or other members of the surgical team and bring it with you the day of surgery. Please bring photo ID and insurance information. [facility] [id number] PAT Orders Signed. Patient is on Aspirin and will need to contact the prescriber for management for the surgery. Normal [facility] 36on 03-22-2023 36 Please enter PAT orders [id number] @ 1200 @ Krishna Consent-Ulnar nerve decompression with possible tranposition LEFT elbow, Left first dorsal compartment decompression, and Left thumb Carpometacarpal joint steroid injection-99908, 79855, Dx-G56.02, M65.4, M18.12 Anesthesia-MAC with Regional [id number] @ [facility] @ 1400 Case-[id number] [facility] 36 ----- Message from Madhav Galindo ATC sent at 03/22/2023 2:20 PM EDT ----- SCOTT SURGERY SCHEDULING SLIP Patient: Reji Foley Date of : 1950 Date of Surgery: Next available Day of Surgery: Wednesday Hospital: [facility] Duration: 45 min Type: Outpatient PAT: Yes Med Clearance: No Anesthesia: MAC Block: Regional Position: Supine Table: Regular OR table Arm Board: Suspended arm board WITHOUT leg Radiology: None CPT Code: 13460 Consent: Ulnar nerve decompression with possible tranposition LEFT elbow, Left first dorsal compartment decompression, and Left thumb CMC joint steroid injection FollowUp: [place] in 10-14 days XRays: No OT Splint needed at first PO appointment: No Special Requests Scott hand tray (include debakey & [employer]) Lighted retractor and 2-0 fiberwire (available but not opened) 20cc 1% lido with epi Normal [facility] Office Visiton 03-22-2023 Follow-up visit [id number] Reji Foley 1950 F Date Provider Department Center 03/22/2023 [id number]-VSEPIKARAN CHAVEZ [facility] OR None No family history on file Level of Service:12865 ME OFFICE/OUTPATIENT ESTABLISHED MOD MDM 30-39 MIN Reason for Visit and Comments: New Patient [542] - Left CuTS Normal [facility] Progress Noteon 03-22-2023 Progress Note CDs UPLOADED, IMAGES IN AGFA, REPORTS SCANNED Normal [facility] Progress Note [facility] [address] [place] [address] [place] [id number] Dept: [phone] Dept 03/22/2023 Chief Complaint Patient presents with New Patient Left CuTS HISTORY Reji Foley is a 72 y.o. Right-handed female who presents today complaining of numbness and tingling in her LEFT hand, involving the whole hand that has been present for several years She admits to nighttime awakening and frequently dropping things. She denies medial elbow discomfort. Previous treatments include: Night Splinting: No Injections: No EMG: Yes Surgery on Affected Extremity: No Has numerous complaints involving her left elbow forearm wrist and hand. States she fell and injured her left elbow many years ago. Since that time she has had numbness tingling in her ring and small finger. Also has pain along the radial wrist and thumb. Has had work-ups including wrist and elbow MRIs and comes today for definitive treatment. No results found for: HGBA1C No past surgical history on file. No past medical history on file. No Known Allergies Current Outpatient Medications Medication Sig Dispense Refill acyclovir (Zovirax) 200 MG capsule Take 200 mg by mouth 2 times daily. amLODIPine (Norvasc) 5 MG tablet Take 5 mg by mouth daily. aspirin 325 MG tablet Take 325 mg by mouth daily. atorvastatin (Lipitor) 40 MG tablet Take 40 mg by mouth daily. clonazePAM (KlonoPIN) 0.5 MG tablet Take 0.5 mg by mouth 2 times daily. escitalopram (Lexapro) 20 MG tablet Take 20 mg by mouth daily. gabapentin (Neurontin) 300 MG capsule TAKE 1 CAPSULE BY MOUTH EVERYDAY AT BEDTIME losartan (Cozaar) 50 MG tablet Take 50 mg by mouth daily. metoprolol succinate XL (Toprol-XL) 25 MG 24 hr tablet Take 25 mg by mouth in the morning and 25 mg in the evening. propranolol (Inderal) 80 MG tablet No current facility-administere d medications for this visit. OBJECTIVE BP 110/64 Ht 5' (1.524 m) Wt 150 lb (68 kg) BMI 29.29 kg/m? Ortho Exam Focused Exam of the LEFT Upper Extremity Exquisitely tender palpation over thumb CMC and first dorsal compartment. Positive Jesus's. Positive CMC grind. Full elbow range of motion without tenderness or instability. LEFT Atrophy not present Tinel's at Wrist negative Carpal Compression negative Tinel's at Elbow POSITIVE Flexion/Compression Elbow POSITIVE Ulnar Nerve Subluxation not appreciated APB Strength 5/5 Intrinsic Strength 5/5 2-point discrimination (mm) LEFT Hand Thumb Index Long Ring Small r u r u r u r u r u 5 5 5 5 5 5 5 8 8 8 Median Ulnar Palpable radial pulses bilaterally. Full range of motion without evidence of instabilities in bilateral shoulders, elbows, wrists, or digits. IMAGING Left Elbow MRI w/o contrast dated 11/23/22 shows: Left Wrist MRI w/o contrast dated 11/23/22 shows: NCT/EMG (Copied Impression) Left Upper extremity EMG/NCT dated 01/25/23 shows: PROCEDURE none ASSESSMENT (G56.22) Cubital tunnel syndrome on left (M18.12) Osteoarthritis of carpometacarpal (CMC) joint of left thumb (M65.4) De Quervain's tenosynovitis, left 1. Cubital tunnel syndrome on left 2. Osteoarthritis of carpometacarpal (CMC) joint of left thumb 3. De Quervain's tenosynovitis, left PLAN I personally reviewed and interpreted her left wrist and left elbow MRIs on outside disc. Elbow is benign in appearance. Wrist demonstrates first dorsal compartment synovitis and CMC arthritis. Recent NCT/EMG was also reviewed and interpreted. She has ulnar neuropathy focal to the elbow. I recommend left elbow ulnar nerve decompression with possible transposition, first dorsal compartment release, and thumb CMC injection. I had an extensive discussion with Ms. Reji Foley regarding the natural history, etiology, and usp consequences of her condition. We discussed both operative and non operative treatment options and Reji oFley elected to proceed with surgical intervention. I have discussed with Ms. Reji Foley the potential complications, limitations, expectations, alternatives, and risks of the proposed surgical procedure. Risks discussed include but are not limited to the risk of infection, iatrogenic injury to normal neurovascular structures, persistent pain and disability, unsightly scar, stiffness, complex regional pain syndrome, loss of limb, myocardial infarction, deep vein thrombosis, pulmonary embolism and even . We also discussed the potential risk of COVID-19 exposure or infection and how it could alter her post operative recovery course. She has had full opportunity to ask her questions. I have answered them all to her satisfaction. I feel that Ms. Reji Foley does understand our discussion today and she is comfortable providing informed consent for the procedure. Follow-up: Reji will followup with my physician registered dental assistant rda, Mary Kwong PA-C post operative (more content not included)... Normal [facility] Clostridium difficile detect ion by polymerase chain reactionOrdered By: Dr. Underwood on 10-29-2022 C. difficile DNA RANDY+probe Ql (Unsp spec) [facility] Absolute lymphocyte countOrd ered By: Dr. Underwood on 10-28-2022 Lymphocytes Auto (Unsp spec) [#/Vol] 2.77 10*3/uL 0.83-4.51 [facility] Basophil percentageOrdered B y: Dr. Underwood on 10-28-2022 Basophils/100 WBC (Bld) 0.8 % 0-1 [facility] Bilirubin [Mass/Vol] 0.50 mg/dL 0.20-1.00 [facility] Comment on above: For patients on eltr ombopag therapy, use of Dimension [place] TBIL is not recommended. Chloride [Moles/Vol] 111 mmol/L 98-107 [facility] Eosinophils/100 WBC (Bld) 2.1 % 0-5 [facility] Glucose [Mass/Vol] 90 mg/dL 74-[address] [facility] Neutrophils (Bld) [#/Vol] 8.3 10*3/uL 2.0-7.7 [facility] Neutrophils/100 WBC (Bld) 65.2 % 47-70 [facility] Potassium [Moles/Vol] 3.7 mmol/L 3.5-5.1 [facility] Protein [Mass/Vol] 7.1 g/dL 6.4-8.[address] [facility] Sodium [Moles/Vol] 142 mmol/L 136-[address] [facility] WBC (Bld) [#/Vol] 12.8 10*3/uL 4.4-11.0 [facility] Blood erythrocytes count (nu mber/volume)Ordered By: Dr. Underwood on 10-28-2022 RBC (Bld) [#/Vol] 4.34 10*6/uL 4.2-5.4 [facility] Blood hemoglobin measurement (mass/volume)Ordered By: Dr. Underwood on 10-28-2022 Hemoglobin (Bld) [Mass/Vol] 14.1 g/dL 12.0-15.0 [facility] Blood lymphocytes/100 leukoc ytesOrdered By: Dr. Underwood on 10-28-2022 Lymphocytes/100 WBC (Bld) 21.7 % 19-41 [facility] Blood monocytes/100 leukocyt esOrdered By: Dr. Underwood on 10-28-2022 Monocytes/100 WBC (Bld) 9.8 % 0-10 [facility] Blood platelet mean volumeOr dered By: Dr. Underwood on 10-28-2022 Platelet mean volume (Bld) [Entitic vol] 12.1 fL 6.2-12.0 [facility] Determination of erythrocyte mean corpuscular volume (MCV)Ordered By: Dr. Underwood on 10-28-2022 MCV (RBC) [Entitic vol] 98.2 fL 81-99 [facility] Hematocrit Auto (Bld) [Volum e fraction]Ordered By: Dr. Underwood on 10-28-2022 Hematocrit (Bld) [Volume fraction] 42.6 % 37-47 [facility] - Chemistry and C hemistry - challengeOrdered By: Dr. Underwood on 10-28-2022 ALP [Catalytic activity/Vol] 91 U/L 45-117 [facility] ALT [Catalytic activity/Vol] 25 U/L 13-56 [facility] CO2 [Moles/Vol] 20.0 mmol/L 21.0-32.0 [facility] Globulin (S) [Mass/Vol] 3.8 g/dL 2.2-4.[address] [facility] Urea nitrogen/Creatinine [Mass ratio] 14.2 mg/mg 10-20 [facility] - Hematology and Cell countsOrdered By: Dr. Underwood on 10-28-2022 Erythrocyte distribution width (RBC) [Entitic vol] 51.8 fL 35.1-43.9 [facility] Erythrocyte distribution width (RBC) [Ratio] 14.3 % 11.6-14.6 [facility] Immature granulocytes/100 WBC (Bld) 0.400 % 0.0-0.9 [facility] Comment on above: IG% - Immature Granu locytes (promyelocytes, myelocytes and metamyelocytes) > 1% indicates that a LEFT SHIFT is Present. MCH (RBC) [Entitic mass] 32.5 pg 27.0-32.0 [facility] Nucleated RBC/100 WBC (Bld) [Ratio] 0 % 0-5 [facility] MCHC Auto (RBC) [Mass/Vol]Or dered By: Dr. Underwood on 10-28-2022 MCHC (RBC) [Mass/Vol] 33.1 g/dL 32-36 [facility] No Panel InformationOrdered By: Dr. Underwood on 10-28-2022 Estimated GFR (MDRD) Amer 72 mL/min >60 [facility] Comment on above: GFR Calc Estimated GFR (MDRD) Non-Af Amer 59 mL/min >60 [facility] Comment on above: Non- GFR Calc Platelets bldOrdered By: Dr. Underwood on 10-28-2022 Platelets (Bld) [#/Vol] 340 10*3/uL 150-450 [facility] Serum or plasma albumin joe urement (mass/volume)Ordered By: Dr. Underwood on 10-28-2022 Albumin [Mass/Vol] 3.3 g/dL 3.2-5.[address] [facility] Serum or plasma albumin/glob ulin mass ratioOrdered By: Dr. Underwood on 10-28-2022 Albumin/Globulin [Mass ratio] 0.9 {ratio} 0.9-2.4 [facility] Serum or plasma calcium joe urement (mass/volume)Ordered By: Dr. Underwood on 10-28-2022 Calcium [Mass/Vol] 8.0 mg/dL 8.5-10.[address] [facility] Serum or plasma creatinine m easurement (mass/volume)Ordered By: Dr. Underwood on 10-28-2022 Creatinine [Mass/Vol] 0.98 mg/dL 0.55-1.02 [facility] Comment on above: The validity of the calculated GFR & GFRAA in patients over 70 years has not been determined. Clinical correlation is essential. Serum or plasma urea nitroge n measurement (mass/volume)Ordered By: Dr. Underwood on 10-28-2022 Urea nitrogen [Mass/Vol] 14 mg/dL 7-18 [facility] Thin prep Papanicolaou smear with manual screeningOrdered By: Dr. Underwood on 10-28-2022 Thin prep Papanicolaou smear with manual screening 14 U/L 15-37 [facility] Thin prep Papanicolaou smear with manual screening 11 5-15 [facility] ABORH TYPE RECONFIRMATIONon 10-31-2021 ABO/RH(D) TYPE AB POS Normal [facility] Comment on above: Performed By: #### T YPEC #### [facility] (DEFAULT) [address] [place] [address] CALCIUMon 10-31-2021 Calcium [Mass/Vol] 9.5 mg/dL Normal 8.6-10.5 [facility] Comment on above: Performed By: #### C 7ED, HFP #### [facility] (DEFAULT) [address] [place] [address] 86685 CBC AND ELECTRONIC DIFFon Basophils (Bld) [#/Vol] 10*3/uL Normal 0.00-0.15 [facility] Comment on above: Performed By: #### C 7EKellie, HFP #### [facility] (DEFAULT) [address] [place] [address] 74857 Basophils/100 WBC (Bld) 0.2 % Normal [facility] Comment on above: Performed By: #### C 7ED, HFP #### [facility] (DEFAULT) [address] [place] [address] 52162 DIFF STATUS Electronic Differential Normal [facility] Comment on above: Performed By: #### C 7ED, HFP #### [facility] (DEFAULT) [address] [place] [address] 96449 Eosinophils (Bld) [#/Vol] 0.24 10*3/uL Normal 0.00-0.42 [facility] Comment on above: Performed By: #### C 7ED, HFP #### [facility] (DEFAULT) [address] [place] [address] 26898 Eosinophils/100 WBC (Bld) 2.7 % Normal [facility] Comment on above: Performed By: #### Eliu HALEY, HFP #### [facility] (DEFAULT) [address] [place] [address] 23975 Hematocrit (Bld) [Volume fraction] 45.3 % High 34.9-44.3 [facility] Comment on above: Performed By: #### Eliu HALEY, HFP #### [facility] (DEFAULT) [address] [place] [address] 07042 Hemoglobin (Bld) [Mass/Vol] 14.8 g/dL Normal 11.4-15.2 [facility] Comment on above: Performed By: #### Eliu HALEY, HFP #### [facility] (DEFAULT) [address] [place] [address] 81243 Immature Grans % 0.7 % Normal [facility] Comment on above: Performed By: #### Eliu HALEY, HFP #### [facility] (DEFAULT) [address] [place] [address] 82622 Immature Grans Absolute 0.06 K/uL Normal <=0.09 [facility] Comment on above: Performed By: #### Eliu HALEY, HFP #### [facility] (DEFAULT) [address] [place] [address] 88844 Lymphocytes (Bld) [#/Vol] 2.96 10*3/uL Normal 1.16-3.51 [facility] Comment on above: Performed By: #### Eliu HALEY, HFP #### [facility] (DEFAULT) [address] [place] [address] 06493 Lymphocytes/100 WBC (Bld) 33.1 % Normal [facility] Comment on above: Performed By: #### Eliu HALEY, HFP #### [facility] (DEFAULT) [address] [place] [address] 16428 MCV (RBC) [Entitic vol] 96.8 fL Normal 79.6-97.7 [facility] Comment on above: Performed By: #### Eliu HALEY, HFP #### [facility] (DEFAULT) [address] [address] Mean Cell Hgb 31.6 pg Normal 25.9-33.9 [facility] Comment on above: Performed By: #### Eliu HALEY, HFP #### [facility] (DEFAULT) [address] [address] Mean Cell Hgb Conc 32.7 g/dL Normal 31.4-35.9 [facility] Comment on above: Performed By: #### Eliu HALEY, HFP #### [facility] (DEFAULT) [address] [address] Monocytes (Bld) [#/Vol] 1.20 10*3/uL High 0.22-0.87 [facility] Comment on above: Performed By: #### Eliu HALEY, HFP #### [facility] (DEFAULT) [address] [address] Monocytes/100 WBC (Bld) 13.4 % Normal [facility] Comment on above: Performed By: #### Eliu HALEY, HFP #### [facility] (DEFAULT) [address] [address] Nucleated RBC 0.0 /100 WBC Normal <=0.2 [facility] Comment on above: Performed By: #### Eliu HALEY, HFP #### [facility] (DEFAULT) [address] [place] [address]23 Platelet mean volume (Bld) [Entitic vol] 10.6 fL Normal 8.5-12.2 [facility] Comment on above: Performed By: #### Eliu HALEY, HFP #### [facility] (DEFAULT) [address] [place] [address] 27388 Platelets (Bld) [#/Vol] 356 10*3/uL Normal 150-393 [facility] Comment on above: Performed By: #### Eliu HALEY, HFP #### [facility] (DEFAULT) [address] [place] [address] 70638 RBC (Bld) [#/Vol] 4.68 10*6/uL Normal 3.91-5.04 [facility] Comment on above: Performed By: #### Eliu HALEY, HFP #### [facility] (DEFAULT) [address] [place] [address] 02780 RBC Distribution 14.0 % Normal 10.8-14.9 [facility] Comment on above: Performed By: #### Eliu HALEY, HFP #### [facility] (DEFAULT) [address] [place] [address] 98729 Segs + Bands Auto 49.9 % Normal [facility] Comment on above: Performed By: #### Eliu HALEY, HFP #### [facility] (DEFAULT) [address] [place] [address] 10432 Segs + Bands,Absolute Auto 4.45 K/uL Normal 1.64-7.28 [facility] Comment on above: Performed By: #### Eliu HALEY, HFP #### [facility] (DEFAULT) [address] [place] [address] 87845 WBC (Bld) [#/Vol] 8.93 10*3/uL Normal 3.99-11.19 [facility] Comment on above: Performed By: #### Eliu HALEY, HFP #### [facility] (DEFAULT) [address] [place] [address] 54718 Basophils (Bld) [#/Vol] 10*3/uL Normal 0.00-0.15 [facility] Comment on above: Performed By: #### Eliu HALEY, HFP #### [facility] (DEFAULT) [address] [place] [address] 45323 Basophils/100 WBC (Bld) 0.2 % Normal [facility] Comment on above: Performed By: #### Eliu HALEY, HFP #### [facility] (DEFAULT) [address] [place] [address] 21045 DIFF STATUS Electronic Differential Normal [facility] Comment on above: Performed By: #### Eliu HALEY, HFP #### [facility] (DEFAULT) [address] [place] [address] 22160 Eosinophils (Bld) [#/Vol] 0.18 10*3/uL Normal 0.00-0.42 [facility] Comment on above: Performed By: #### Eliu HALEY, HFP #### [facility] (DEFAULT) [address] [place] [address] 55645 Eosinophils/100 WBC (Bld) 1.7 % Normal [facility] Comment on above: Performed By: #### Eliu HALEY, HFP #### [facility] (DEFAULT) [address] [place] [address] 91087 Hematocrit (Bld) [Volume fraction] 41.6 % Normal 34.9-44.3 [facility] Comment on above: Performed By: #### Eliu HALEY, HFP #### [facility] (DEFAULT) [address] [place] [address] 99960 Hemoglobin (Bld) [Mass/Vol] 13.8 g/dL Normal 11.4-15.2 [facility] Comment on above: Performed By: #### Eliu HALEY, HFP #### [facility] (DEFAULT) [address] [place] [address] 55742 Immature Grans % 0.6 % Normal [facility] Comment on above: Performed By: #### Eliu HALEY, HFP #### [facility] (DEFAULT) [address] [place] [address] 71439 Immature Grans Absolute 0.06 K/uL Normal <=0.09 [facility] Comment on above: Performed By: #### Eliu HALEY, HFP #### [facility] (DEFAULT) [address] [place] [address] 50299 Lymphocytes (Bld) [#/Vol] 3.55 10*3/uL High 1.16-3.51 [facility] Comment on above: Performed By: #### Eliu HALEY, HFP #### [facility] (DEFAULT) [address] [place] [address] 94688 Lymphocytes/100 WBC (Bld) 33.4 % Normal [facility] Comment on above: Performed By: #### Eliu HALEY, HFP #### [facility] (DEFAULT) [address] [place] [address] 32734 MCV (RBC) [Entitic vol] 97.7 fL Normal 79.6-97.7 [facility] Comment on above: Performed By: #### Eliu HALEY, HFP #### [facility] (DEFAULT) [address] [address] Mean Cell Hgb 32.4 pg Normal 25.9-33.9 [facility] Comment on above: Performed By: #### Eliu HALEY, HFP #### [facility] (DEFAULT) [address] [place] [address] 32274 Mean Cell Hgb Conc 33.2 g/dL Normal 31.4-35.9 [facility] Comment on above: Performed By: #### Eliu HALEY, HFP #### [facility] (DEFAULT) [address] [address] Monocytes (Bld) [#/Vol] 1.23 10*3/uL High 0.22-0.87 [facility] Comment on above: Performed By: #### Eliu HALEY, HFP #### [facility] (DEFAULT) [address] [place] [address] 75725 Monocytes/100 WBC (Bld) 11.6 % Normal [facility] Comment on above: Performed By: #### Eliu HALEY, HFP #### [facility] (DEFAULT) [address] [address] Nucleated RBC 0.0 /100 WBC Normal <=0.2 [facility] Comment on above: Performed By: #### Eliu HALEY, HFP #### [facility] (DEFAULT) [address] [place] [address] 07868 Platelet mean volume (Bld) [Entitic vol] 10.2 fL Normal 8.5-12.2 [facility] Comment on above: Performed By: #### Eliu 7ED, HFP #### [facility] (DEFAULT) [address] [place] [address] 72626 Platelets (Bld) [#/Vol] 318 10*3/uL Normal 150-393 [facility] Comment on above: Performed By: #### Eliu 7ED, HFP #### [facility] (DEFAULT) [address] [place] [address] 71316 RBC (Bld) [#/Vol] 4.26 10*6/uL Normal 3.91-5.04 [facility] Comment on above: Performed By: #### Eliu 7EKellie, HFP #### [facility] (DEFAULT) [address] [place] [address] 71805 RBC Distribution 13.9 % Normal 10.8-14.9 [facility] Comment on above: Performed By: #### Eliu 7EKellie, HFP #### [facility] (DEFAULT) [address] [place] [address] 93281 Segs + Bands Auto 52.5 % Normal [facility] Comment on above: Performed By: #### Eliu 7EKellie, HFP #### [facility] (DEFAULT) [address] [place] [address] 01319 Segs + Bands,Absolute Auto 5.60 K/uL Normal 1.64-7.28 [facility] Comment on above: Performed By: #### C 7ED, HFP #### [facility] (DEFAULT) [address] [place] [address] 75989 WBC (Bld) [#/Vol] 10.64 10*3/uL Normal 3.99-11.19 [facility] Comment on above: Performed By: #### C 7EKellie, HFP #### [facility] (DEFAULT) [address] [place] [address] 31930 CHEM 7 (LYTES,BUN,CREA,GLUC) on 10-31-2021 Anion gap [Moles/Vol] 13 mmol/L Normal 7-17 [facility] Comment on above: Performed By: #### C 7ED, HFP #### [facility] (DEFAULT) [address] [place] [address] 99246 Chloride [Moles/Vol] 102 mmol/L Normal 98-108 [facility] Comment on above: Performed By: #### C 7ED, HFP #### [facility] (DEFAULT) [address] [place] [address] 61756 CO2 [Moles/Vol] 26 mmol/L Normal 21-31 [facility] Comment on above: Performed By: #### C 7ED, HFP #### [facility] (DEFAULT) [address] [place] [address] 58663 Creatinine [Mass/Vol] 0.79 mg/dL Normal 0.50-1.20 [facility] Comment on above: Performed By: #### C 7EKellie, HFP #### [facility] (DEFAULT) [address] [place] [address] 50904 EST GFR, >=60 Normal >=60 [facility] Comment on above: Performed By: #### C 7ED, HFP #### [facility] (DEFAULT) [address] [place] [address] 09249 EST GFR,Non >=60 Normal >=60 [facility] Comment on above: Performed By: #### C 7ED, HFP #### [facility] (DEFAULT) [address] [place] [address] 36220 Glucose [Mass/Vol] 113 mg/dL High 70-99 [facility] Comment on above: Performed By: #### C 7ED, HFP #### [facility] (DEFAULT) [address] [place] [address] 67996 Osmolality [Osmolality] 288 mosm/kg Normal 278-305 [facility] Comment on above: Performed By: #### Eliu HALEY, HFP #### [facility] (DEFAULT) [address] [place] [address] 38673 Potassium [Moles/Vol] 4.0 mmol/L Normal 3.5-5.0 [facility] Comment on above: Performed By: #### C 7EKellie, HFP #### [facility] (DEFAULT) [address] [place] [address] 31547 Sodium [Moles/Vol] 137 mmol/L Normal 133-143 [facility] Comment on above: Performed By: #### Eliu HALEY, HFP #### [facility] (DEFAULT) [address] [place] [address] 39835 Urea nitrogen [Mass/Vol] 12 mg/dL Normal 7-25 [facility] Comment on above: Performed By: #### Eliu HALEY, HFP #### [facility] (DEFAULT) [address] [place] [address] 03350 Urea nitrogen/Creatinine [Mass ratio] 15 mg/mg Normal [facility] Comment on above: Performed By: #### Eliu HALEY, HFP #### [facility] (DEFAULT) [address] [place] [address] 40201 CH 7 - EDon 10-31-2021 Anion gap [Moles/Vol] 10 mmol/L Normal 7-17 [facility] Comment on above: Performed By: #### Eliu 7EKellie, HFP #### [facility] (DEFAULT) [address] [place] [address] 52598 Chloride [Moles/Vol] 105 mmol/L Normal 98-108 [facility] Comment on above: Performed By: #### C 7EKellie, HFP #### [facility] (DEFAULT) [address] [place] [address] 16125 CO2 [Moles/Vol] 24 mmol/L Normal 21-31 [facility] Comment on above: Performed By: #### C 7EKellie, HFP #### [facility] (DEFAULT) [address] [place] [address] 20637 Creatinine [Mass/Vol] 0.77 mg/dL Normal 0.50-1.20 [facility] Comment on above: Performed By: #### Eliu HALEY, HFP #### [facility] (DEFAULT) [address] [place] [address] 40000 EST GFR, >=60 Normal >=60 [facility] Comment on above: Performed By: #### Eliu HALEY, HFP #### [facility] (DEFAULT) [address] [place] [address] 25826 EST GFR,Non >=60 Normal >=60 [facility] Comment on above: Performed By: #### Eliu HALEY, HFP #### [facility] (DEFAULT) [address] [place] [address] 62908 Glucose [Mass/Vol] 104 mg/dL High 70-99 [facility] Comment on above: Performed By: #### Eliu HALEY, HFP #### [facility] (DEFAULT) [address] [place] [address] 95487 Osmolality [Osmolality] 284 mosm/kg Normal 278-305 [facility] Comment on above: Performed By: #### Eliu HALEY, HFP #### [facility] (DEFAULT) [address] [place] [address] 95586 Potassium [Moles/Vol] 4.1 mmol/L Normal 3.5-5.0 [facility] Comment on above: Performed By: #### Eliu HALEY, HFP #### [facility] (DEFAULT) [address] [place] [address] 17810 Sodium [Moles/Vol] 135 mmol/L Normal 133-143 [facility] Comment on above: Performed By: #### Eliu HALEY, HFP #### [facility] (DEFAULT) [address] [place] [address] 14348 Urea nitrogen [Mass/Vol] 12 mg/dL Normal 7-25 [facility] Comment on above: Performed By: #### C 7ED, HFP #### [facility] (DEFAULT) [address] [place] [address] Urea nitrogen/Creatinine [Mass ratio] 16 mg/mg Normal [facility] Comment on above: Performed By: #### C 7ED, HFP #### [facility] (DEFAULT) [address] [place] [address] CT ANGIO BRAIN/NECKon 2021 CT ANGIO BRAIN/NECK EXAM: CT ANGIO BRAIN/NECK, 10/30/2021 22:38 PM COMPARISON: Same day CT head without contrast CLINICAL INDICATIONS: 71 years Female hemorrhagic stroke; TECHNIQUE: A series of transaxial multislice computerized tomographic images are obtained with helical technique from top of aortic arch to vertex following bolus intravenous administration of nonionic contrast. Axial thin section source images, as well as sagittal and coronal thin section reformats, were provided at the scanner. Additional multiplanar and 3D reconstructions were provided. CONTRAST: iohexol (OMNIPAQUE) 350 MG/ML injection 1-171 mL; Route of Administration: Intravenous; Dose: 100 mL. FINDINGS: CTA NECK: Aortic Arch: There is conventional origin of the great vessels from the aortic arch. There is atherosclerotic plaque at the origins of the right brachiocephalic and left internal carotid arteries causing mild luminal stenosis. Atherosclerotic calcifications in the aortic arch without significant stenosis. Carotid Arteries: The right common, internal and external carotid arteries are normal in caliber without evidence of dissection or pseudoaneurysm. No significant stenosis at the carotid bifurcation. The left common, internal and external carotid arteries are normal in caliber without evidence of dissection or pseudoaneurysm. No significant stenosis at the carotid bifurcation. Vertebral Arteries: The right vertebral artery is diminutive from its point of origin. There is no other significant focal stenosis. Dominant left vertebral artery shows no significant focal stenosis at its origin or elsewhere. CTA INTRACRANIAL: Petrous, cavernous, and supraclinoid carotid arteries are unremarkable. No major anatomical variations at [place]. Anterior, middle and posterior cerebral arteries appear unremarkable. There is moderate stenosis of the left P2 segment best seen on coronal image 122 Intracranial vertebral arteries are unremarkable. Basilar artery is unremarkable. No aneurysm or vascular malformation is identified. Other: Bilateral hypoattenuating thyroid nodules. Bilateral paraseptal emphysema in the imaged upper lung zones. Enlarged precarinal lymph node measuring 17 x 22 mm on axial image 454 IMPRESSION: 1. No critical stenosis or occlusion of the major arterial vasculature of the head or neck. 2. Moderate stenosis of the left P2 segment. 3. Incidental finding of bilateral thyroid nodules. Recommend further evaluation with thyroid ultrasound on a nonemergent basis. 4. Enlarged precarinal lymph node is entirely nonspecific. 5. Paraseptal emphysema in the imaged lungs. I personally viewed and interpreted these images and I have reviewed and approved this report. Normal [facility] CT HEAD WITHOUT CONTRASTon 0 10-31-2021 CT HEAD WITHOUT CONTRAST EXAM: CT HEAD WITHOUT CONTRAST, 10/31/2021 3:34 PM COMPARISON: CT and MRI studies 10/30/2021 CLINICAL INDICATIONS: 71 years Female trace hemorrhagic conversion of L occipital lobe infarct; RELEVANT CLINICAL HISTORY: To be scheduled 24 hours after admission.; TECHNIQUE: A series of transaxial computerized tomographic images are obtained from base of skull to vertex without intravenous contrast. Axial whole-head and thin section posterior fossa slices are provided. Reformats: Sagittal and coronal. FINDINGS: There is a small subacute infarct in the posterior paramedian aspect of the left occipital lobe, EXTRA HAND territory likely. This is stable in size since previous CT and MRI. There is some minimal petechial hemorrhage along the superior margin of the infarct which is unchanged. Overall is a nonhemorrhagic infarct with no dustin hematoma. There is no significant mass effect. No other new abnormality identified. There is no extracerebral collection. Ventricles are normal in size and configuration for patient's stated age. Posterior fossa is within normal limits. Calvarium and skull base appear intact. Visualized sinuses show no air fluid levels. Visualized orbits are unremarkable. IMPRESSION: Stable compared to 10/30/2021. Small subacute infarct in the left occipital lobe. Minimal petechial hemorrhage. Overall it is primarily a nonhemorrhagic infarct. Normal [facility] CT STROKE HEAD-STROKE ALERT ONLYon 10-31-2021 CT STROKE HEAD-STROKE ALERT ONLY EXAM: CT STROKE HEAD-STROKE ALERT ONLY, 10/30/2021 10:26 PM COMPARISON: None. CLINICAL INDICATIONS: 71 years Female Suspected Stroke; RELEVANT CLINICAL HISTORY: TECHNIQUE: A series of transaxial computerized tomographic images are obtained from base of skull to vertex without intravenous contrast. Axial whole-head and thin section posterior fossa slices are provided. Reformats: Sagittal and coronal. FINDINGS: There is an area of hypoattenuation in the left parietal-occipital lobe with a small focus of possible blood products, best seen on sagittal images (series 6 image 38). There is no mass effect or midline shift. Ventricles are normal in size and configuration for patient's stated age. Posterior fossa is within normal limits. Calvarium and skull base appear intact. The visualized paranasal sinuses and mastoid air cells are well aerated. IMPRESSION: 1. Area of hypoattenuation with possible small focus of internal hyperdensity, consistent with subacute infarct with possible tiny focus of hemorrhagic transformation as reported on outside hospital imaging per the electronic medical record in the left parietal-occipital lobe. Findings were discussed with Claus Christianson at 10:30 on 10/30/21. I personally viewed and interpreted these images and I have reviewed and approved this report. Normal [facility] ECHOCARDIOGRAMon 10-31-2021 Echocardiography ? Normal left ventricle size and ejection fraction 64% by modified Muro's rule ? Normal diastolic function ? Normal right ventricle size and systolic function. ? Estimated RVSP 29 mmHg ? No significant valvular abnormalities ? Shunting not assessed in this study ? No prior study for review Facility [facility] Patient Information Patient Name Reji Foley Legal Sex Female Indication for Exam Priority: Routine Dx: Cerebrovascular accident (CVA), unspecified mechanism [I63.9 (ICD-10-CM)] Order Question Reason for Exam stroke workup Interpretation Summary ? Normal left ventricle size and ejection fraction 64% by modified Muro's rule ? Normal diastolic function ? Normal right ventricle size and systolic function. ? Estimated RVSP 29 mmHg ? No significant valvular abnormalities ? Shunting not assessed in this study ? No prior study for review Findings Left Ventricle Chamber size is normal. Normal wall thickness. Normal global wall motion. Regional wall motion is normal. Ejection fraction by modified Muro's rule is normal. Diastolic function is normal. Right Ventricle Chamber size is normal. Normal wall thickness. Segmental wall motion is normal. Systolic function is normal. Left Atrium Chamber size is normal. Right Atrium Chamber size is normal. Septum The atrial septum is normal. Mitral Valve Normal appearing leaflets. Leaflet mobility is normal. Trace regurgitation. No valve stenosis. Aortic Valve Trileaflet valve. Leaflet mobility is normal. No regurgitation. No stenosis. Tricuspid Valve Normal leaflets. Leaflet mobility is normal. Trace regurgitation. No stenosis. Pulmonic Valve Normal structure. No regurgitation. No stenosis. Aorta No dilation to extent seen. SOV: 2.98 cm. STJ: 2.77 cm. Ascendin.07 cm. Pericardium A mass most consistent with a fat pad is present. No pericardial effusion. IVC/SVC The inferior vena cava structure has a diameter <21 mm and decreases >50% during inspiration. Flow patterns are normal. Pulmonary Artery Pulmonary artery not well visualized. Reading Providers Reading Role Read Date Jovanni Martínez MD Fellow - Reading 10/31/2021 Kris Gregory MD Test Director Physical Therapy, [facility] [place] 10/31/2021 Wall Scoring Score Index: 1.00 The left ventricular wall motion is normal. Left Heart Measurements LV - Systole LVIDD 4.57 cm IVS 1.09 cm LVIDS 2.74 cm PW 0.91 cm LV RWT 0.4 LV Mass Index 92.4 g/m2 LV EDV BP 58 mL LV ESV BP 21 mL BP EF 64 % LV stroke volume BP (ml) 37 mL LV stroke volume index BP 21.76 mL/m2 LV - Diastole MV pk E wiley 0.57 m/s MV pk A wiley 0.58 m/s E/A ratio 0.98 e' septal pk wiley 0.06 m/s e' lateral pk wiley 0.08 m/s Avg e' pk wiley 0.07 m/s E/e' septal ratio 8.82 E/e' lateral ratio 7.19 Avg E/e' ratio 8.01 LV - HCM AV LVOT peak gradient 3 mmHg Left Atrium LA ESV SP 4CH (MOD) 36 mL LA ESV SP 2CH (MOD) 78 mL LA ESV BP (MOD) index 32 mL/m2 Right Heart Measurements RV - 2D RV basal diam 2.9 cm RV mid diam 1.4 cm RV long diam 5.4 cm RV Area diastolic 14 cm2 RV Area systolic 6 cm2 RV Fractional area change 57.1 % RV - Doppler TAPSE 1.62 RV S' 8.33 cm/s Right Atrium RA vol index 4CH (MOD) 20.59 mL/m2 EST RAP 3 mmHg RA area 4CH (MOD) 14.1 cm2 Great Vessels Aortic Root - End Diastolic Sinus 2.98 cm STJ 2.77 cm Ascending aorta 3.07 cm Doppler Measurements - Aortic Valve Stenosis LVOT diameter 1.9 cm LVOT area 2.83 cm2 LVOT peak wiley 0.92 m/s LVOT peak VTI 20.65 cm Stroke Volume 59 cm/mL Stroke volume index 34 Ao peak wiley 1.49 m/s Ao VTI 25.53 cm AV peak gradient 9 mmHG AV mean gradient 4 mmHg DI (VTI) 0.81 m/2 DI (Vmax) 0.62 KIRAN (continuity Vmax) 1.75 cm2 KIRAN index (continuity Vmax) 1.03 m/s KIRAN (continuity VTI) 2.29 cm2 KIRAN index (continuity VTI) 1.35 cm2/m2 LVOT stroke volume 59 cm3 LVOT stroke volume index 34.42 ml/m2 Doppler Measurements - Mitral Valve Stenosis MV pk E wiley 0.57 m/s MV pk A wiley 0.58 m/s E/A ratio 0.98 MV stenosis pressure 1/2 time 82.12 ms MV valve area p 1/2 method 2.68 cm2 PISA-MS MV pk E wiley 0.57 m/s Doppler Measurements - Tricuspid Valve Regurgitation TR pk wiley 2.57 m/s TR pk grad 26 mmHg EST RAP 3 mmHg EST RVSP 29 mmHg Doppler Measurements - Pulmonic Valve Stenosis PV PK WILEY 0.64 m/s PV peak gradient 2 mmHg Performing Staff Dionisio Judd RDCS Study Details Study(s) performed: complete, color flow and Doppler. Imaging system used: Phase Eight. Indications for study: stroke/tia. Exam Details Performed Procedure Technologist Supporting Staff Performing Physician ME ECHOCARDIOGRAM W/O 3D Dionisio Judd RDCS Appointment Date/Status Modalit (more content not included)... Normal [facility] HEMOGLOBIN A1Con 10-31-2021 Glucose [Mass/Vol] 137 mg/dL Normal [facility] Comment on above: Performed By: #### Eliu HALEY, HFP #### [facility] (DEFAULT) [address] [place] [address]648 HbA1c (Bld) [Mass fraction] 6.4 % High 4.7-5.6 [facility] Comment on above: Performed By: #### Eliu HALEY, HFP #### [facility] (DEFAULT) [address] [place] [address] HEPATIC FUNCTION PANELon Albumin [Mass/Vol] 3.5 g/dL Normal 3.5-5.0 [facility] Comment on above: Performed By: #### Eliu HALEY, HFP #### [facility] (DEFAULT) [address] [place] [address]48 ALP [Catalytic activity/Vol] 63 U/L Normal 32-126 [facility] Comment on above: Performed By: #### Eliu HALEY, HFP #### [facility] (DEFAULT) [address] [place] [address]124 ALT [Catalytic activity/Vol] 14 U/L Normal 9-48 [facility] Comment on above: Performed By: #### Eliu HALEY, HFP #### [facility] (DEFAULT) [address] [place] [address] 36658 AST [Catalytic activity/Vol] 21 U/L Normal 10-39 [facility] Comment on above: Performed By: #### Eliu HALEY, HFP #### [facility] (DEFAULT) [address] [place] [address]86 Bilirubin [Mass/Vol] 0.5 mg/dL Normal <1.5 [facility] Comment on above: Performed By: #### Eliu HALEY, HFP #### [facility] (DEFAULT) [address] [place] [address]00 Bilirubin.indirect [Mass/Vol] mg/dL Normal <0.3 [facility] Comment on above: Performed By: #### C 7ED, HFP #### [facility] (DEFAULT) [address] [address] Protein [Mass/Vol] 6.3 g/dL Low 6.4-8.3 [facility] Comment on above: Performed By: #### C 7ED, HFP #### [facility] (DEFAULT) [address] [address] HIGH SENSITIVITY TROPONIN I - SINGLE ORDERon 10-31-2021 hs-Troponin I 26 ng/L Normal <34 [facility] Comment on above: Order Comment: Acute Coronary Syndrome (ACS): Initial Evaluation and Management: [email or web address] Performed By: #### L ABHSTI1 #### [facility] (DEFAULT) [address] [address] LIPID PANEL WITH REFLEX TO M EASURED LDLon 10-31-2021 Calculated LDL Cholesterol 120 mg/dL High 0-99 [facility] Comment on above: Result Comment: [<10 0 mg/dL: Optimal] [100-129 mg/dL: Near Optimal] [130-159 mg/dL: Borderline High] [160-189 mg/dL: High] [>189 mg/dL: Very High] Performed By: #### L IPDR #### [facility] (DEFAULT) [address] [address] Cholesterol [Mass/Vol] 174 mg/dL Normal <200 [facility] Comment on above: Result Comment: [<20 0 mg/dL: Desirable] [200-239 mg/dL: Borderline High] [>239 mg/dL: High] Performed By: #### L IPDR #### [facility] (DEFAULT) [address] [address] Cholesterol in HDL [Mass/Vol] 32 mg/dL Low >=40 [facility] Comment on above: Result Comment: [<40 mg/dL: Low (High Risk)] [>59 mg/dL: High (Low Risk)] Performed By: #### L IPDR #### [facility] (DEFAULT) [address] [address] Non HDL Cholesterol 142 mg/dL High <130 [facility] Comment on above: Performed By: #### L IPDR #### [facility] (DEFAULT) [address] [address] Total Cholesterol/HDL Ratio 5.4 High <4.5 [facility] Comment on above: Performed By: #### L IPDR #### [facility] (DEFAULT) [address] [address] Triglyceride [Mass/Vol] 108 mg/dL Normal <150 [facility] Comment on above: Result Comment: [<15 0 mg/dL: Desirable] [150-199 mg/dL: Borderline] [200-499 mg/dL: High] [>500 mg/dL: Very High] Performed By: #### L IPDR #### [facility] (DEFAULT) [address] [address] MAGNESIUMon 10-31-2021 Magnesium [Mass/Vol] 1.8 mg/dL Normal 1.6-2.6 [facility] Comment on above: Performed By: #### L IPDR #### [facility] (DEFAULT) [address] [address] NOVEL CORONAVIRUS PCRon 10-12 SARS-CoV-2 (COVID-19) RNA RANDY+probe Ql (Unsp spec) Not detected Normal NOT DETECTED [facility] Comment on above: Order Comment: Viral transport media or BAL specimen - Collection must be done while wearing N-95 mask, eye protection, gown and gloves. Please label ALL specimens as 2019-nCoV rule out and deliver by hand. This test was performed using real time PCR for the qualitative detection of SARS-CoV-2 nucleic acid. The test has been reviewed by the FDA and given emergency use authorization. This test was developed and its performance characteristics determined by [facility] at [facility]. This test is used for clinical purposes. It should not be regarded as investigational or for research. Result Comment: [facility] Negative results do not preclude SARS-CoV-2 infection and should not be used as the sole basis for treatment or other patient management decisions. Optimum specimen types and timing for peak viral levels during infections caused by SARS-CoV-2 has not been determined. The possibility of a false negative result should especially be considered if the patient's recent exposures or clinical presentation suggest that SARS-CoV-2 infection is probable, and diagnostic tests for other causes of illness (e.g., other respiratory illness) are negative. Collection of a new specimen and re-testing may be necessary if the patient is critically ill or clinically deteriorating. Performed By: #### L [id number] #### [facility] (DEFAULT) [address] [place] [address] PHOSPHATE, INORGANICon 10-31 Phosphorous 3.5 mg/dL Normal 2.2-4.6 [facility] Comment on above: Performed By: #### L IPDR #### [facility] (DEFAULT) [address] [place] [address] PT,INR,PTTon 10-31-2021 aPTT Coag (Bld) [Time] 25.8 s Normal 24.0-34.3 [facility] Comment on above: Performed By: #### C 7ED, HFP #### [facility] (DEFAULT) [address] [place] [address] INR Coag (PPP) [Relative time] 1.0 {INR} Normal 0.9-1.1 [facility] Comment on above: Performed By: #### C 7ED, HFP #### [facility] (DEFAULT) [address] [place] [address] PT Coag (PPP) [Time] 13.2 s Normal 11.9-14.2 [facility] Comment on above: Performed By: #### C 7ED, HFP #### [facility] (DEFAULT) [address] [place] [address] PTINR-STROKEon 10-31-2021 INR Coag (PPP) [Relative time] 1.0 {INR} Normal 0.9-1.1 [facility] Comment on above: Performed By: #### P TT, PTISTR #### [facility] (DEFAULT) [address] [place] [address] PT Coag (PPP) [Time] 13.3 s Normal 11.9-14.2 [facility] Comment on above: Performed By: #### P TT, PTISTR #### [facility] (DEFAULT) [address] [place] [address] PTTon 10-31-2021 aPTT Coag (Bld) [Time] 25.9 s Normal 24.0-34.3 [facility] Comment on above: Performed By: #### P TT, PTISTR #### [facility] (DEFAULT) [address] [place] [address] TYPE AND SCREENon 10-31-2021 ABO/RH(D) TYPE AB POS Normal [facility] Comment on above: Performed By: #### X M #### [facility] (DEFAULT) [address] [place] [address]329 XR CHEST AP PORTABLE EDon XR CHEST AP PORTABLE ED EXAM: XR CHEST A P PORTABLE ED, 10/30/2021 23:10 PM COMPARISON: No prior studies available for comparison. CLINICAL INDICATIONS: mild hypoxia FINDINGS: (Adequate technique) Implanted Devices: None Thorax: Normal cardiomediastinal silhouette. Lungs are clear. No definite pleural effusion or pneumothorax. IMPRESSION: No acute cardiopulmonary disease Normal [facility] Office Visiton 03-04-2017 Dietary management education, guidance, and counseling (procedure) yes Invalid Interpretation Code [facility] Work Phone: Documentation of current medications (procedure) Done Invalid Interpretation Code [facility] Work Phone: Fall risk assessment No [facility] Work Phone: [phone] Smoking cessation education (procedure) yes Invalid Interpretation Code [facility] Work Phone: [phone] Tobacco smoking status NHIS Current some day smoker [facility] Work Phone: [phone] Tobacco use [facility] Current some day smoker Invalid Interpretation Code [facility] Work Phone: [phone] Office Visiton 08-31-2016 Tobacco smoking status INIS Current every day smoker [facility] Work Phone: [phone] Office Visiton 03-12-2015 cardiac risk group B [facility] Work Phone: [phone] General cardiovascular disease 10Y risk [#] [place] Not enough information [facility] Work Phone: [phone] Replaced Document: [facility] E CG Observationson 03-12-2015 EKG QRS axis 27 deg [facility] Work Phone: [phone] electrocardiogram interpretation Sinus Tachycardia with Paroxysmal Atrial Tachycardia - Nonspecific T-abnormality. ABNORMAL Invalid Interpretation Code [facility] Work Phone: [phone] GE use only - for [employer] import when terms are not otherwise specified 440 ms Invalid Interpretation Code [facility] Work Phone: [phone] Interpretation Sinus Tachycardia with Paroxysmal Atrial Tachycardia - Nonspecific T-abnormality. ABNORMAL [facility] Work Phone: [phone] P [place] 30 deg [facility] Work Phone: [phone] P wave axis, electrocardiogram 30 deg Invalid Interpretation Code [facility] Work Phone: [phone] ME Interval 132 ms [facility] Work Phone: [phone] ME interval, electrocardiogram 132 ms Invalid Interpretation Code [facility] Work Phone: [phone] Pulse (Heart Rate) 116 /min Invalid Interpretation Code [facility] Work Phone: [phone] QRS axis, electrocardiogram 27 deg Invalid Interpretation Code [facility] Work Phone: [phone] QRS Duration 80 ms [facility] Work Phone: [phone] QRS duration, electrocardiogram 80 ms Invalid Interpretation Code [facility] Work Phone: [phone] QT Interval new path ms [facility] Work Phone: [phone] QT interval, electrocardiogram new path ms Invalid Interpretation Code [facility] Work Phone: [phone] QTc [place] 440 ms [facility] Work Phone: [phone] T [place] -1 deg [facility] Work Phone: [phone] T wave axis, electrocardiogram -1 deg Invalid Interpretation Code [facility] Work Phone: [phone] Chart Maintenanceon 02-23-20 15 Anion gap 5 mmol/L Invalid Interpretation Code [facility] Work Phone: [phone] Anion gap [Moles/Vol] 5 mmol/L [facility] Work Phone: [phone] Calcium [Mass/Vol] 7.8 mg/dL [facility] Work Phone: [phone] Chloride [Moles/Vol] 109 mmol/L High [facility] Work Phone: [phone] CO2 26 mmol/L Invalid Interpretation Code [facility] Work Phone: [phone] CO2 (BldV) [Partial pressure] 26 mmol/L [facility] Work Phone: [phone] Creatinine [Mass/Vol] 0.9 mg/dL [facility] Work Phone: [phone] Erythrocytes (RBC) 4.33 10*6/uL Invalid Interpretation Code [facility] Work Phone: [phone] Glucose 96 mg/dL Invalid Interpretation Code [facility] Work Phone: [phone] Glucose [Mass/Vol] 96 mg/dL [facility] Work Phone: [phone] Hematocrit (Bld) [Volume fraction] 42.6 % [facility] Work Phone: [phone] Hematocrit (HCT) 42.6 % Invalid Interpretation Code [facility] Work Phone: [phone] Hemoglobin (Bld) [Mass/Vol] 13.7 g/dL [facility] Work Phone: [phone] Platelets 347 10*3/mm3 Invalid Interpretation Code [facility] Work Phone: [phone] Platelets (Bld) [#/Vol] 347 10*3/mm3 [facility] Work Phone: [phone] Potassium [Moles/Vol] 3.8 mmol/L [facility] Work Phone: [phone] RBC (Bld) [#/Vol] 4.33 10*6/uL [facility] Work Phone: [phone] Sodium [Moles/Vol] 140 mmol/L [facility] Work Phone: [phone] Urea nitrogen [Mass/Vol] 8 mg/dL [facility] Work Phone: [phone] Urea nitrogen/Creatinine [Mass ratio] 8.9 mg/mg Low [facility] Work Phone: [phone] WBC (Bld) [#/Vol] 12.6 10*3/uL High [facility] Work Phone: [phone] WBC (Leukocytes) 12.6 10*3/uL High [facility] Work Phone: [phone] Chart Maintenanceon 02-22-20 15 Albumin [Mass/Vol] 3.3 g/dL [facility] Work Phone: [phone] Alkaline phosphatase (ALP) 85 U/L Invalid Interpretation Code [facility] Work Phone: [phone] ALP (Bld) [Catalytic activity/Vol] 85 U/L [facility] Work Phone: [phone] ALT [Catalytic activity/Vol] 21 U/L [facility] Work Phone: [phone] AST [Catalytic activity/Vol] 19 U/L [facility] Work Phone: [phone] Bilirubin [Mass/Vol] 0.30 mg/dL [facility] Work Phone: [phone] Magnesium [Mass/Vol] 1.7 mg/dL Low [facility] Work Phone: [phone] Protein [Mass/Vol] 7.5 g/dL [facility] Work Phone: [phone] 0 TSH Qn 0.80 u[iU]/mL [facility] Work Phone: [phone] Vital Signs Date Time Vital Sign Value Performing Clinician Faci lity 02-12-2025 05:01-0400 Heart rate 58 /min Dr. Mynor Underwood MD Work Phone: [phone] [place] [address] 02-12-2025 05:01-0400 Respiratory rate 16 /min Dr. Mynor Underwood MD Work Phone: 2(454)[phone] [place] [address] 02-12-2025 05:01-0400 SaO2% (BldA) [Mass fraction] 98 % Dr. Mynor Underwood MD Work Phone: [phone](991)[phone] [place] [address] 02-12-2025 04:17-0400 Body temperature 97.8 [degF] Dr. Mynor Underwood MD Work Phone: 8([phone])[phone] [place] [address] 02-12-2025 04:17-0400 Diastolic blood pressure 52 mm[Hg] Dr. Mynor Underwood MD Work Phone: 1(768)343-908848 [place] [address] 02-12-2025 04:17-0400 Systolic blood pressure 116 mm[Hg] Dr. Mynor Underwood MD Work Phone: [phone] [place] [address] 02-12-2025 03:01-0400 Body height 152.[address] Mynor Underwood MD Work Phone: [phone])568-522548 [place] [address] 02-12-2025 03:01-0400 Body mass index (BMI) [Ratio] 29.5 kg/m2 Dr. Mynor Underwood MD Work Phone: 1(653)774-821548 [place] [address] 02-12-2025 03:01-0400 Body weight 68.[address] Mynor Underwood MD Work Phone: [phone] [place] [address] 01-25-2025 14:29-0400 Body mass index (BMI) [Ratio] 26.9 kg/m2 Dr. Mynor Underwood MD Work Phone: 0([phone] [place] [address] 01-25-2025 14:29-0400 Body weight 62.[address] Mynor Underwood MD Work Phone: 1(557)137-813248 [place] [address] 01-25-2025 14:29-0400 Diastolic blood pressure 72 mm[Hg] Dr. Mynor Underwood MD Work Phone: [facility] 01-25-2025 14:29-0400 Heart rate 64 /min Dr. Mynor Underwood MD Work Phone: [facility] 01-25-2025 14:29-0400 Respiratory rate 16 /min Dr. Mynor Underwood MD Work Phone: [facility] 01-25-2025 14:29-0400 Systolic blood pressure 128 mm[Hg] Dr. Mynor Underwood MD Work Phone: [facility] 05-31-2023 13:13-0400 Body height 152.4 cm Judaism Backer PA-C Work Phone: [facility] 05-31-2023 13:13-0400 Body mass index (BMI) [Ratio] 29.29 kg/m2 Judaism Backer PA-C Work Phone: [facility] 05-31-2023 13:13-0400 Body weight 68.04 kg Judaism Backer PA-C Work Phone: [facility] 05-31-2023 13:13-0400 Diastolic blood pressure 74 mm[Hg] Judaism Backer PA-C Work Phone: [facility] 05-31-2023 13:13-0400 Systolic blood pressure 110 mm[Hg] Judaism Backer PA-C Work Phone: [facility] 04-19-2023 12:48-0400 Body height 152.4 cm Judaism Backer PA-C Work Phone: [facility] [employer] 04-19-2023 12:48-0400 Body mass index (BMI) [Ratio] 29.29 kg/m2 Judaism Backer PA-C Work Phone: [facility] [employer] 04-19-2023 12:48-0400 Body weight 68.04 kg Judaism Backer PA-C Work Phone: [facility] [employer] 04-19-2023 12:48-0400 Diastolic blood pressure 68 mm[Hg] Judaism Backer PA-C Work Phone: [facility] 04-19-2023 12:48-0400 Systolic blood pressure 114 mm[Hg] Ninfa Garcia PA-C Work Phone: [facility] 04-09-2023 12:45-0400 Diastolic blood pressure 71 mm[Hg] Karan Chavez MD Work Phone: [facility] 04-09-2023 12:45-0400 Heart rate 76 /min Karan Chavez MD Work Phone: [facility] 04-09-2023 12:45-0400 Respiratory rate 14 /min Karan Chavez MD Work Phone: [facility] 04-09-2023 12:45-0400 SaO2% (BldA) [Mass fraction] 92 % Karan Chavez MD Work Phone: [facility] 04-09-2023 12:45-0400 Systolic blood pressure 107 mm[Hg] Karan Chavez MD Work Phone: [facility] 04-09-2023 12:13-0400 Body temperature 97.3 [degF] Karan Chavez MD Work Phone: [facility] 04-09-2023 10:18-0400 Body height 152.4 cm Karan Chavez MD Work Phone: [facility] 04-09-2023 10:18-0400 Body mass index (BMI) [Ratio] 29.29 kg/m2 Karan Chavez MD Work Phone: [facility] 04-09-2023 10:18-0400 Body weight 68.04 kg Karan Chavez MD Work Phone: [facility] 12-01-2022 13:03-0500 Body height 154.[address] Mynor Underwood Work Phone: [facility] 12-01-2022 13:03-0500 Body mass index (BMI) [Ratio] 28.3 kg/m2 Dr. Mynor Underwood Work Phone: [facility] 12-01-2022 13:03-0500 Body weight 68.[address] Mynor Underwood Work Phone: [facility] 12-01-2022 13:03-0500 Diastolic blood pressure 75 mm[Hg] Dr. Mynor Underwood Work Phone: [facility] 12-01-2022 13:03-0500 Heart rate 63 /min Dr. Mynor Underwood Work Phone: [facility] 12-01-2022 13:03-0500 Respiratory rate 18 /min Dr. Mynor Underwood Work Phone: [facility] 12-01-2022 13:03-0500 Systolic blood pressure 120 mm[Hg] Dr. Mynor Underwood Work Phone: [facility] 03-04-2017 13:22-0400 BMI (Body Mass Index) 28.34 kg/m2 [facility] Work Phone: 03-04-2017 13:22-0400 Body weight 68.04 kg [facility] Work Phone: 03-04-2017 13:22-0400 BP Diastolic 80 mm[Hg] [facility] Work Phone: 03-04-2017 13:22-0400 BP Systolic 152 mm[Hg] [facility] Work Phone: 03-04-2017 13:22-0400 Height 154.94 cm [facility] Work Phone: 03-04-2017 13:22-0400 Pulse (Heart Rate) 80 /min [facility] Work Phone: 03-04-2017 13:22-0400 Respiratory Rate 18 /min [facility] Work Phone: 03-04-2017 13:22-0400 Weight 68.04 kg [facility] Work Phone: 08-31-2016 13:56-0500 BMI (Body Mass Index) 28.34 kg/m2 [facility] Work Phone: 08-31-2016 13:56-0500 Body weight 68.04 kg Harberta DeFinis [facility] Work Phone: 08-31-2016 13:56-0500 BP Diastolic 60 mm[Hg] Harumi DeFinis [facility] Work Phone: 08-31-2016 13:56-0500 BP Systolic 120 mm[Hg] Harumi DeFinis [facility] Work Phone: 08-31-2016 13:56-0500 BSA (Body Surface Area) 1.67 m2 Harumi DeFinis [facility] Work Phone: 08-31-2016 13:56-0500 Height 154.94 cm Harumi DeFinis [facility] Work Phone: 08-31-2016 13:56-0500 Pulse (Heart Rate) 90 /min Harumi DeFinis [facility] Work Phone: 08-31-2016 13:56-0500 Respiratory Rate 16 /min Harumi DeFinis [facility] Work Phone: 03-12-2015 13:40-0400 Heart rate 116 /min Harumi DeFinis [facility] Work Phone: 03-12-2015 13:16-0400 Pulse Oximetry 97 % Harberta DeFinis [facility] Work Phone: Encounters Encounter Date Encounter Type Care Provider Facility Start: 06-18-2025 End: 06-18-[address] Mynor Underwood MD Work Phone: -Laboratory [facility] Start: 06-18-2025 End: 06-18-[address] Mynor Underwood MD -Laboratory [facility] Start: 06-18-2025 End: 06-18-2025 ambulatory Mynor Underwood Facility:[facility] Start: 06-08-2025 Encounter for other preprocedural examination Mynor Underwood [facility] Start: 06-06-2025 End: 06-07-2025 ambulatory ROSAMARIA ZHONG Facility:[id number] Start: 05-30-2025 End: 05-30-[address] Mynor Underwood MD Work Phone: -Laboratory [facility] Start: 05-30-2025 End: 05-30-[address] Mynor Underwood MD -[facility] Start: 05-30-2025 End: 05-30-2025 ambulatory Mynor Underwood Facility:[facility] Start: 05-21-2025 ambulatory ROSAMARIA ZHONG MD Facil ity:A Start: 02-20-2025 End: 02-20-2025 Non-patient / Non-visit Dr. Marlon Ballard MD -[facility] Work Phone: Start: 02-20-2025 End: 02-20-[address] Mynor Underwood MD Work Phone: [facility] Work Phone: Start: 02-20-2025 End: 02-20-2025 Patient encounter procedure Rayna TROTTER -Pulmonary Services/Neurology Work Phone: Start: 02-20-2025 End: 02-20-2025 ambulatory Rayna Moctezuma Facility:[facility] Start: 02-12-2025 End: 02-12-2025 Emergency department patient visit Dr. Jan Balderrama -Emergency Department Work Phone: Start: 01-25-2025 End: 01-25-[address] Bob Castellanos MD -[facility] Work Phone: Start: 01-25-2025 End: 01-25-2025 ambulatory Mynor Underwood Facility:[facility] Start: 05-31-2023 End: 05-31-2023 ambulatory [facility] Start: 05-31-2023 End: 05-31-2023 Postop follow up visit related to original px Judaism Pantheon PA-C Work Phone: [facility] Medical [facility] Comment on above: Cubital tunnel syndr ome on left; De Quervain's tenosynovitis, left; Osteoarthritis of carpometacarpal (CMC) joint of left thumb, unspecified osteoarthritis type; S/P decompression of ulnar nerve at elbow Start: 05-27-2023 End: 05-27-2023 ambulatory [facility] Work Phone: Start: 05-27-2023 End: 05-27-2023 Patient encounter [facility] Start: 04-19-2023 End: 04-19-2023 ambulatory NINFA GARCIA [facility] Start: 04-19-2023 End: 04-19-2023 Postop follow up visit related to original px Ninfa Garcia PA-C Work Phone: 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 Start: 04-09-2023 End: 04-09-2023 Anesthesia consultation Dustin Denson MD Work Phone: [facility] Start: 04-09-2023 End: 04-09-2023 Subsequent hospital visit by physician Karan Chavez MD Work Phone: [facility] Comment on above: S/P cubital tunnel r elease (Primary Dx) Start: 04-02-2023 End: 04-02-2023 ambulatory [facility] Start: 04-02-2023 End: 04-02-2023 Encounter for other preprocedural examination [facility]AR[facility] Start: 03-26-2023 ambulatory Ninfa cardoso PA-C Work Phone: [facility] Start: 03-22-2023 End: 03-22-2023 ambulatory [facility] Start: 01-25-2023 Non-patient / Non-visit Dr. Rose Marie Underwood Work Phone: [facility] Start: 01-25-2023 End: 01-25-[address] Mynor Underwood Work Phone: [facility] Work Phone: Start: 01-25-2023 End: 01-25-[address] Mynor Underwood Work Phone: [facility]-Pulmonary Services/Neurology Start: 12-01-2022 End: 12-01-[address] Mynor Underwood Work Phone: [facility] Start: 11-23-2022 End: 11-23-[address] Mynor Underwood Work Phone: [facility] Start: 10-29-2022 End: 10-29-2022 ambulatory [facility] Work Phone: Start: 10-29-2022 End: 10-29-2022 Patient encounter procedure [facility]-Laboratory, Specimen Start: 10-28-2022 End: 10-28-2022 ambulatory [facility] Work Phone: Start: 10-28-2022 End: 10-28-2022 Patient encounter procedure [facility]-Laboratory, [place] Start: 10-31-2021 End: 10-31-2021 Evaluation and management of inpatient MIKE Barnes THAILA SETH Facility:[facility] Procedures Date Procedure Procedure Detail Performing Clinician Start: 06-06-2025 Antibody screen ROSAMARIA GLASS Comment on above: Order Comment: Speci men Type: BLOOD SPECIMENOrdering Facility: [facility] Address: [address] [place] [address] Performed By: #### L [id number], [facility] ####[facility] BLOOD BANKIA [id number] [place] [id number] [place] Start: 02-12-2025 Plain x-ray of humerus Dr. Mynor Underwood MD Work Phone: Start: 02-12-2025 Plain X-ray of shoulder Dr. Mynor Underwood MD Work Phone: Start: 02-12-2025 CT of head without contrast Dr. 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 Mynor Underwood Work Phone: Start: 11-23-2022 MRI of upper limb Dr. Nehal Underwood Work Phone: Start: 10-31-2021 Antibody screen MIKE VÁSQUEZ JR. Comment on above: Performed By: #### X M #### [facility] ([facility]) [address] [place] [address] Start: 03-04-2017 End: 03-04-2017 Dietary management education, guidance, and counseling Christine Pardo Start: 03-04-2017 End: 03-04-2017 Documentation of current medications Christine Pardo Start: 03-04-2017 End: 03-04-2017 Smoking cessation education Christine Edvin Start: 03-04-2017 End: 03-04-2017 HERNANDO Zapien MD Work Phone: Start: 03-04-2017 End: 03-04-2017 Follow Up Appt 6 months Madhav Zapien MD Work Phone: Start: 08-31-2016 End: 08-31-2016 Dietary management education, guidance, and counseling Harumi DeFinis Start: 08-31-2016 End: 08-31-2016 Documentation of current medications Harumi DeFinis Start: 08-31-2016 End: 08-31-2016 Smoking cessation education Harumi DeFin is Start: 08-31-2016 End: 08-31-2016 HERNANDO Zapien MD Work Phone: Start: 08-31-2016 End: 08-31-2016 Follow Up Appt 6 months Madhav Zapien MD Work Phone: Start: 02-17-2016 End: 02-17-2016 HERNANDO Zapien MD Work Phone: Start: 02-17-2016 End: 02-17-2016 Follow Up Appt 6 months Madhav Zapien MD Work Phone: Start: 08-19-2015 End: 08-19-2015 HERNANDO Zapien MD Work Phone: Start: 08-19-2015 End: 08-19-2015 Follow Up Appt 6 months Madhav Zapien MD Work Phone: Start: 04-16-2015 End: 04-16-2015 HERNANDO Zapien MD Work Phone: Start: 04-16-2015 End: 04-17-2015 Documentation of current medications Madhav Zapien MD Work Phone: Start: 04-16-2015 End: 07-18-2015 Echocardiography Madhav Zapien MD Work Phone: Start: 04-16-2015 End: 04-16-2015 Follow Up Appt 4 months Madhav Zapien MD Work Phone: Start: 04-16-2015 End: 04-17-2015 Smoking cessation education Madhav beasley MD Work Phone: Start: 04-08-2015 End: 04-08-2015 Echocardiography Madhav Zapien MD Work Phone: Start: 03-22-2015 End: 04-10-2015 Follow Up BP Check Madhav Zapien MD Work Phone: Start: 03-12-2015 End: 03-12-2015 HERNANDO Zapien MD Work Phone: Start: 03-12-2015 End: 03-12-2015 Follow Up Appt 1 month Madhav Zapien MD Work Phone: Start: 03-12-2015 End: 03-12-2015 Follow Up BP Check Madhav Zapien MD Work Phone: Start: 02-25-2015 End: 03-06-2015 Echocardiography Madhav Zapien MD Work Phone: Clostridium difficil e detection H/O: cornea recipient History of corneal transplant Plan of Treatment Date Care Activity Detail Author Start: 02-12-2025 [facility] Start: 06-11-2023 Influenza vaccination Influenza Vaccine (#1) [facility] Start: 05-31-2023 End: 05-31-2023 Patient encounter procedure 05/31/2023 1:30 PM EDT Office Visit [facility] [address] [place] [id number] Ninfa Garcia PA-C [address] [place], [place] [id number] [facility] Start: 04-19-2023 End: 04-19-2023 Patient encounter procedure 04/19/2023 1:00 PM EDT Office Visit [facility] [address] [place] [id number] Ninfa Garcia PA-C [address] [place] [address] [facility] Start: 04-09-2023 End: 04-09-2023 Admission to same day surgery center 04/09/2023 12:00 PM EDT - 04/09/2023 12:45 PM EDT Surgery [facility] [address] [place] [id number] Karan Chavez MD [address] [place] [address] Ulnar nerve decompression with possible tranposition left elbow, Left first dorsal compartment decompression, and Left thumb carpometacarpal joint steroid injection [86597 (CPT )] [facility] Comment on above: Ulnar nerve decompression with possible tranposition left elbow, Left first dorsal compartment decompression, and Left thumb carpometacarpal joint steroid injection [69649 (CPT )] Start: 04-09-2023 End: 04-09-2023 Arthrocentesis aspir&/inj small jt/bursa w/o us [facility] Operating Room Start: 04-09-2023 End: 04-09-2023 Incision extensor tendon sheath wrist [facility] Operating Room Start: 04-09-2023 End: 04-09-2023 Neuroplasty &/transposition ulnar nerve elbow [facility] Operating Room Start: 04-09-2023 Subsequent hospital visit by physician 04/09/2023 10:00 AM EDT Hospital Encounter [facility] [address] [place] [address] Karan Chavez MD [address] [place] [address] [facility] Start: 04-02-2023 End: 04-02-2023 Admission to establishment 04/02/2023 2:00 PM EDT Pre-Admission Testing [facility] Pre-Admit Testing [address] [place] [address] [facility] Start: 10-13-2021 COVID-19 Vaccine (4 - Booster for Pfizer series) COVID-19 Vaccine (4 - Booster for Pfizer series) [facility] [employer] [facility] Start: 09-20-2017 End: 09-20-2017 Appointment Appointment [facility] Work Phone: Start: 09-20-2017 End: 09-20-2017 Appointment Appointment [facility] Work Phone: Start: 03-04-2017 End: 03-04-2017 Appointment Appointment [facility] Work Phone: Start: 03-04-2017 End: 03-04-2017 HERNANDO VILLAGOMEZ [facility] Work Phone: Start: 03-04-2017 End: 03-04-2017 Follow Up Appt 6 months Follow Up Appt 6 months [facility] Work Phone: Start: 08-31-2016 End: 08-31-2016 HERNANDO VILLAGOMEZ [facility] Work Phone: Start: 08-31-2016 End: 08-31-2016 Follow Up Appt 6 months Follow Up Appt 6 months [facility] Work Phone: Start: 02-17-2016 End: 02-17-2016 HERNANDO DOCN [facility] Work Phone: Start: 02-17-2016 End: 02-17-2016 Follow Up Appt 6 months Follow Up Appt 6 months [facility] Work Phone: Start: 09-10-2015 Pneumococcal Vaccine: 65+ Years (2 - PCV) Pneumococcal Vaccine: 65+ Years (2 - PCV) [facility] [employer] Start: 08-19-2015 End: 08-19-2015 HERNANDO VILLAGOMEZ [facility] Work Phone: Start: 08-19-2015 End: 08-19-2015 Follow Up Appt 6 months Follow Up Appt 6 months [facility] Work Phone: Start: 04-16-2015 End: 04-16-2015 HERNANDO HERNANDO [facility] Work Phone: Start: 04-16-2015 End: 04-16-2015 Echocardiography Echocardiogram (complete) [facility] Work Phone: Start: 04-16-2015 End: 04-16-2015 Follow Up Appt 4 months Follow Up Appt 4 months [facility] Work Phone: Start: 04-09-2015 End: 03-12-2015 Echocardiography Echocardiogram (complete) [facility] Work Phone: Start: 03-22-2015 End: 04-10-2015 Follow Up BP Check Follow Up BP Check [facility] Work Phone: Start: 03-12-2015 End: 03-12-2015 HERNANDO VILLAGOMEZ [facility] Work Phone: Start: 03-12-2015 End: 03-12-2015 Follow Up Appt 1 month Follow Up Appt 1 month [facility] Work Phone: Start: 03-12-2015 End: 03-12-2015 Follow Up BP Check Follow Up BP Check [facility] Work Phone: Start: 02-25-2015 End: 03-06-2015 Echocardiography Echocardiogram (limited) [facility] Work Phone: Start: 04-13-2006 DTaP/Tdap/Td Vaccines (1 - Tdap) DTaP/Tdap/Td Vaccines (1 - Tdap) [facility] Start: 2001 Screening for malignant neoplasm of lung Lung Cancer Screening [facility] Start: 1991 Screening for malignant neoplasm of breast Mammogram [facility] Start: 1969 Diabetes mellitus screening Diabetes Screening [facility] Start: 1969 Hepatitis C screening Hepatitis C Screening [facility] Start: 1963 Depression Screening Depression Screening [facility] Start: 1950 Lipid panel Lipid Panel [facility] Start: 1950 Medicare Annual Wellness (AWV) Medicare Annual Wellness (AWV) [facility] Start: 1950 Screening for malignant neoplasm of colon [facility] Start: 1950 Screening for osteoporosis Bone Density Scan [facility] Patient Education [facility] Work Phone: Patient referral [facility] Work Phone: Immunizations Immunization Date Immunization Notes Care Provider [facility] 11-04-2023 tetanus toxoid, redu vanessa diphtheria toxoid, and acellular pertussis vaccine, adsorbed Dr. Mynor Underwood MD Work Phone: [facility] 08-03-2022 influenza virus vaccine, unspecified formulation Ninfa Garcia PA-C Work Phone: [facility] 01-07-2021 Covid (Pfizer) [facility] 12-17-2020 Covid (Pfizer) [facility] Payers Date Payer Category Payer Self-pay [id number] 2016 Medicare MEDICARE MEDICAR E PART A AND B [id number] 2016-Present [address] [place] [address] Medicare [id number] 2016 Private Health Insurance HUMANA HUMANA MEDICARE SUPPLEMENT [id number] 2016-Present [address] [address] [place] [address] Commercial [id number] 2016 Medicare [id number] 2016 Private Health Insurance [id number] 2012 Private Health Insurance [id number] 1950 Unknown [id number] Unknown [id number] Unknown [id number] Unknown [id number] Unknown [id number] Unknown [id number] Unknown [id number] Social History Date Type Detail Facility Start: 02-26-2022 End: 12-01-2022 Tobacco smoking status INIS Unknown if ever smoked [facility] Start: 02-22-2015 None [facility] Start: 02-22-2015 Alone [facility] Start: 1950 Sex Assigned At Female [facility] Start: 03-22-2023 End: 02-12-2025 Tobacco smoking status NHIS Smokes tobacco daily [facility] History of tobacco use Cigarette Smoker [facility] Start: 03-22-2023 End: 05-31-2023 Cigarettes smoked current (pack per day) - Reported [address] [facility] Start: 03-22-2023 End: 04-02-2023 Tobacco use and exposure Smokeless tobacco non-user [facility] Start: 03-22-2023 End: 05-31-2023 Tobacco use panel [facility] Start: 1950 Sex Assigned At Not on file [facility] Start: 04-09-2023 End: 05-31-2023 Alcohol intake Current drinker of alcohol (finding) [facility] Within the last year , have you been afraid of your partner or ex-partner? No [facility] Start: 04-02-2023 Alcohol Comment 1 mixed drink per we ek [facility] Start: 03-30-2023 End: 04-09-2023 Exposure to SARS-CoV-2 (event) Not sure [facility] Clinical Notes 01-25-2023 to 06-07-2025 Note Date & Type Note Facility 06-07-2025 Note HNO ID: [id number] Author: HECTOR LARSEN APRN.CDL PROGRAM COORDINATOR Service: Orthopaedic Surgery Author Type: Nurse Practitioner Type: Progress Notes Filed: 06/07/2025 11:08 Note Text: ORTHOPAEDIC POSTOP PROGRESS NOTE SERVICE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 understand these instructions. Do not apply diclofenac topical to an open skin wound, or on areas of infection, rash, burn, or peeling skin. Store at room temperature away from moisture and heat. Do not freeze. Store [place] in an upright position. What happens if I miss a dose? Apply the medicine as soon as you can, but skip the missed dose if it is almost time for your next dose. Do not apply two doses at one time. What happens if I overdose? Seek emergency medical attention or call the Poison Help line at . What should I avoid while using diclofenac topical? Ask a doctor or pharmacist before using other medicines for pain, fever, swelling, or cold/flu symptoms. They may contain ingredients similar to diclofenac (such as aspirin, ibuprofen, ketoprofen, ornaproxen). Avoid drinking alcohol. It may increase your risk of stomach bleeding. Avoid exposing treated skin to heat, sunlight, or tanning beds. Heat can increase the amount of diclofenac you absorb through your skin. Avoid getting this medicine in your eyes. If contact does occur, rinse with water. Call your doctorif you have eye irritation that lasts longer than 1 hour. Do not use cosmetics, sunscreen, lotions, insect repellant, or other medicated skin products on thesame area you treat with diclofenac topical. What are the possible side effects of diclofenac topical? Get emergency medical help if you have signs of an allergic reaction (hives, sneezing, runny or stuffy nose, wheezing or trouble breathing, swelling in your face or throat) or a severe skin reaction (fever, sore throat, burning eyes, skin pain, red or purple skin rash with blistering and peeling). Although the risk of serious side effects is low when diclofenac is applied to the skin, this medicine can be absorbed through the skin, which may cause steroid side effects throughout the body. Stop using diclofenac and seek emergency medical attention if you have signs of a heart attack or stroke: chest pain spreading to your jaw or shoulder, sudden numbness or weakness on one side of the body, slurred speech, feeling short of breath. Also call your doctor at once if you have: the first sign of any skin rash, no matter how mild; swelling, rapid weight gain; severe headache, blurred vision, pounding in your neck or ears; little or no urination; liver problems --nausea, diarrhea, stomach pain (upper right side), tiredness, itching, dark urine,panfilo-colored stools, jaundice (yellowing of the skin or eyes); low red blood cells (anemia) --pale skin, unusual tiredness, feeling light- headed or short of breath, cold hands and feet; or signs of stomach bleeding --bloody or tarry stools, coughing up blood or vomit that looks like coffee grounds. Common side effects may include: heartburn, gas, stomach pain, nausea, vomiting; diarrhea, constipation; headache, dizziness, drowsiness; stuffy nose; itching, increased sweating; increased blood pressure; or skin redness, itching, dryness, scaling, or peeling where the medicine was applied. This is not a complete list of side effects and others may occur. Call your doctor for medical advice about side effects. You may report side effects to FDA at 6-779-QYJ-1000. What other drugs will affect diclofenac topical? Ask your doctor before using diclofenac if you take an antidepressant. Taking certain antidepressants with an NSAID may cause you to bruise or bleed easily. Tell your doctor about all your current medicines, especially: cyclosporine; lithium; methotrexate; a blood thinner (warfarin, Coumadin, Jantoven); heart or blood pressure medication, including a diuretic or water pill; or steroid medicine (prednisone and others). This list is not complete and many other drugs may affect diclofenac. This includes prescription and ijzp-jbd-[id number] medicines, vitamins, and herbal products. Not all possible drug interactions are listed here. Where can I get more information? Your pharmacist can provide more information about diclofenac topical. Remember, keep this and all other medicines out of the reach of children, never share your medicines with others, and use this medication only for the indication prescribed. Every effort has been made to ensure that the information provided by [employer]. ('[employer]') is accurate, up-to-date, and complete, but no guarantee is made to that effect. Drug information contained herein may be time sensitive. [employer] information has been compiled for use by healthcare practitioners and consumers in the [place] and therefore [employer] does not warrant that uses outside of the [place] are appropriate, unless specifically indicated otherwise. [employer]'s drug information does not endorse drugs, diagnose patients or recommend therapy. [employer] drug information isan informational resource designed to assist licensed healthcare practitioners in caring for their p atients and/or to serve consumers viewing this service as a supplement to, and not a substitute for, the expertise, skill, knowledge and judgment of healthcare practitioners. The absence of a warningfor a given drug or drug combination in no way should be construed to indicate that the drug or drug combination is safe, effective or appropriate for any given patient. [facility] does not assume any responsibility for any aspect of healthcare administered with the aid of information [facility] provides. The information contained herein is not intended to cover all possible uses, directions, precautions, warnings, drug interactions, allergic reactions, or adverse effects. If you have questions about the drugs you are taking, check with your doctor, nurse or pharmacist. Copyright 9453-3032 [facility]. Version: 10.. Revision date: 07/15/2018. Care instructions adapted under license by [employer]. If you have questions about a medical condition or this instruction, always ask your healthcare professional. [employer] disclaims any warranty or liability for your use of this information. Comfort Cool Brace for Thumb CMC: https://www.[email or web address]/ygvdpql-nxejado-opnt-thumb-wrap documented in this [facility]07-10-2023 History of Present illness Narrative* Ninfa Garcia PA-C - 04/19/2023 1:00 PM EDT Images from the original note were not included. Subjective: Reji is approximately 10 day(s) s/p Left ulnar nerve decompression at the elbow (in situ), left first dorsal compartment release, left first CMC corticosteroid injections, DOS 04/09/2023. Pain is moderate. She is no longer taking anything for pain. She reports improvement in her numbness and tingling in her ring finger, but it still persists in her small finger. She denies drainage from her incision. Her left thumb is still painful after her corticosteroid injection. Reports that she has been doing well since her surgery. She reports her pain is controlled and she is no longer tingling for pain control. She reports on a percent resolution her numbness and tingling symptoms in her ring finger and some improvement in her small finger. She reports continued pain at the base of her thumb and over her first dorsal compartment. She reports intact incision without erythema edema drainage or wound separation. Denies fever and chills. Objective: Ht 5' (1.524 m) Wt 150 lb (68 kg) BMI 29.29 kg/m Ortho Exam Left Upper Extremity Skin: Incision(s) is healing appropriately. No drainage. Minimal surrounding erythema, no wound separation, no warmth Edema: Minimal surrounding edema. Perfusion: Brisk capillary refill to all digits with 2+ radial pulse. Palpation: Tender to palpation along the left CMC joint as well as along her surgical incisions, asexpected. Sensation: LEFT Hand 2-point discrimination (mm) Thumb Index Long Ring Small r u r u r u r u r u 5 5 5 5 5 5 5 5 5 5 Median Ulnar ROM: Elbow (active): Flexion 140 deg Extension 0 deg Supination full Pronation full No ulnar nerve subluxation. Wrist (active): Flexion 75 Extension 85 LEFT Thumb CMC (nl 45 /60 ) MCP (nl 10 H/60 ) IP (nl 15 H/80 ) Palmar Abduction Normal Extension 30 hyperextension 0 Radial Abduction Normal Flexion 55 70 *(Passive values entered only if different than active; otherwise = AROM) Opposes to head of fifth metacarpal Fingers flex to palm and fully extend Clinical Photo(s): XRay: None Assessment Diagnosis Plan 1. Cubital tunnel syndrome on left 2. De Quervain's tenosynovitis, left 3. Osteoarthritis of carpometacarpal (CMC) joint of left thumb 4. S/P decompression of ulnar nerve at elbow Plan Reji is recovering well from her surgery. She is healed her incisions without signs of infection. She is starting to notice improvement in her numbness and tingling symptoms postoperatively. At this time I would like Reji to gradually return to normal activities without restrictions. The patient was advised to advance weightbearing activities using pain as a guide. Sutures were removed today in the office without complication. Expected postoperative recovery course was discussed with the patient including the length of time for nerve recovery. The patient was advised to begin nerve gliding exercises as well as perform scar tissue massage and edema control. Signs and symptoms of infecti on were discussed with the patient. No formal therapy is needed at this time. her questions were answered today in the office. I would like the patient to follow up in 6 week(s) for numbness and tingling check. She is comfortable with the plan. She will call the office with any questions or concerns in the interim. Immobilization: NO immobilization required at this point - FULL ROM encouraged, begin nerve glidingexercises Weight Bearing: Weight Bearing As Tolerated Rehabilitation: NO formal rehabilitation required at this point. I will see Reji back in 6 weeks to see how she is doing. Reji knows to call the office with any questions or concerns in the interim. Future Imaging: None Sutures were removed in office today. No dressing was applied to left upper extremity. Patient tolerated well with no concerns. Applied by: [facility] Ninfa Garcia PA-C to Dr. Karan Chavez Orthopaedic Surgery Hand and Upper Extremity 04/19/2023 at 1:07 PM. (Please note that portions of this note may have been completed with a voice recognition program. Efforts were made to edit the dictations but occasionally words are mis-transcribed.) documented in this [facility]07-10-2023 Instructions* Patient Instructions* Ninfa Garcia PA-C - 04/19/2023 1:00 PM EDT Images from the original note were not included. Finger: Rehab Exercises Your Care Instructions Here are some examples of typical rehabilitation exercises for your condition. Start each exercise slowly. Ease off the exercise if you start to have pain. Your doctor or your physical or occupational therapist will tell you when you can start these exercises and which ones will work best for you. How to do the exercises Finger extension Place your hand flat on a table, palm down. Lift and then lower your affected finger off the table. Repeat 8 to 12 times[address] extension [address] your good hand on a table, palm up. Put your hand with the affected finger on top of your good hand with your fingers wrapped around the thumb of your good hand like you are making a fist. Slowly uncurl the joints of your hand with the affected finger where your fingers connect to your hand so that only the top two joints of your fingers are bent. Your fingers will look like a hook. Move back to your starting position, with your fingers wrapped around your good thumb. Repeat 8 to 12 times. DIP flexion With your good hand, grasp your affected finger. Your thumb will be on the top side of your finger just below the joint that is closest to your fingernail. Slowly bend your affected finger only at the joint closest to your fingernail. Hold for about 6 seconds. Repeat 8 to 12 times. PIP extension (with MP extension) Place your good hand on a table, palm up. Put your hand with the affected finger on top of your good hand. Use the thumb and fingers of your good hand to grasp below the middle joint of your affected finger. Bend and then straighten the last two joints of your affected finger. Repeat 8 to 12 times. Isolated PIP flexion Place the hand with the affected finger flat on a table, palm up. With your other hand, press down on the fingers that are not affected. Your affected finger will be free to move. Slowly bend your affected finger. Hold for about 6 seconds. Then straighten your finger. Repeat 8 to 12 times. Imaginary ball squeeze Pretend to hold an imaginary ball. Slowly bend your fingers around the imaginary ball, and squeeze the ball for about 6 seconds. Then slowly straighten your fingers to release the ball. Repeat 8 to 12 times. Tendon glides In this exercise, the steps follow one another to a make a continuous movement. Hold your hand upward. Your fingers and thumb will be pointing straight up. Your wrist should be relaxed, following the line of your fingers and thumb. Curl your fingers so that the top two joints in them are bent, and your fingers wrap down. Your fingertips should touch or be near the base of your fingers. Your fingers will look like a hook. Make a fist by bending your knuckles. Your thumb can gently rest against your index (pointing) finger. Unwind your fingers slightly so that your fingertips can touch the base of your palm. Your thumb can rest against your index finger. Move back to your starting position, with your fingers and thumb pointing up. Repeat the series of motions 8 to [address] a small towel roll on a table. With your palm facing down, grab the towel and squeeze it for about 6 seconds. Then slowly straighten your fingers to release the towel. Repeat 8 to 12 times. Towel grab Fold a small towel in half, and lay it flat on a table. Put your hand flat on the towel, palm down. Grab the towel, and scrunch it toward you until your hand is in a fist. Slowly straighten your fingers to push the towel back so it is flat on the table again. Repeat 8 to 12 times. documented in this [facility]06-30-2023 NotePatient: Reji Foley Procedure Summary Date: 04/09/23 Room / Location: [address] Operating Room Anesthesia Start: 1113 Anesthesia Stop: 1216 Procedures: Ulnar nerve decompression with possible tranposition left elbow, Left first dorsal compartment decompression, and Left thumb carpometacarpal joint steroid injection (Left: Elbow) INCISION EXTENSOR TENDON SHEATH WRIST (RELEASE DEQUERVAINS CONTRACTURE) (Left: Wrist) ARTHROCENTESIS ASPIRATION AND/OR INJECTION SMALL JOINT OR BURSA (Left: Hand) Diagnosis: Carpal tunnel syndrome, left upper limb Radial styloid tenosynovitis (de quervain) Unilateral primary osteoarthritis of first carpometacarpal joint, left hand (Carpal tunnel syndrome, left upper limb [G56.02]) (Radial styloid tenosynovitis (de quervain) [M65.4]) (Unilateral primary osteoarthritis of first carpometacarpal joint, left hand [M18.12]) Surgeons: Karan Chavez MD Responsible Provider: Dustin Denson Jr., MD Anesthesia Type: general, regional ASA Status: 3 Anesthesia Type: general, regional Vitals Value Taken Time BP 136/81 04/09/23 1217 Temp 97.3 04/09/23 1217 Pulse 76 04/09/23 1217 Resp 20 04/09/23 1217 SpO2 98 04/09/23 1217 Anesthesia Post Evaluation Patient location during evaluation: PACU Patient participation: complete - patient participated Level of consciousness: awake and alert Pain management: satisfactory to patient Airway patency: patent Dental Injury: no Cardiovascular status: acceptable, blood pressure returned to baseline and hemodynamically stable Respiratory status: acceptable and spontaneous ventilation Hydration status: euvolemic Nausea/Vomiting: controlled No notable events documented. Patient can be discharged once all PACU criteria has been met.[facility] [id number] NotePatient: Reji Foley Procedure Summary Date: 04/09/23 Room / Location: [address] Operating Room Anesthesia Start: 1113 Anesthesia Stop: 1216 Procedures: Ulnar nerve decompression with possible tranposition left elbow, Left first dorsal compartment decompression, and Left thumb carpometacarpal joint steroid injection (Left: Elbow) INCISION EXTENSOR TENDON SHEATH WRIST (RELEASE DEQUERVAINS CONTRACTURE) (Left: Wrist) ARTHROCENTESIS ASPIRATION AND/OR INJECTION SMALL JOINT OR BURSA (Left: Hand) Diagnosis: Carpal tunnel syndrome, left upper limb Radial styloid tenosynovitis (de quervain) Unilateral primary osteoarthritis of first carpometacarpal joint, left hand (Carpal tunnel syndrome, left upper limb [G56.02]) (Radial styloid tenosynovitis (de quervain) [M65.4]) (Unilateral primary osteoarthritis of first carpometacarpal joint, left hand [M18.12]) Surgeons: Karan Chavez MD Responsible Provider: Dustin Denson Jr., MD Anesthesia Type: general, regional ASA Status: 3 Anesthesia Type: general, regional Vitals Value Taken Time BP 136/81 04/09/23 1216 Temp 97.3 04/09/23 1216 Pulse 76 04/09/23 1216 Resp 20 04/09/23 1216 SpO2 98 04/09/23 1216 Anesthesia Post Evaluation Patient location during evaluation: PACU Patient participation: complete - patient participated Level of consciousness: awake and alert Pain score: 0 Pain management: satisfactory to patient Multimodal analgesia pain management approach Airway patency: patent Two or more strategies used to mitigate risk of obstructive sleep apnea Cardiovascular status: acceptable and hemodynamically stable Respiratory status: acceptable Hydration status: acceptable No notable events documented. MIPS #430 PONV Patient received an inhalational anesthetic (4554F) Patient does not exhibit three or more risk factors for PONV (X0430)) MIPS # 424 Perioperative Temperature Management Anesthesia time was less than 60 minutes (4256F) MIPS #477 Multimodal Pain Management Not emergent case Patient was administered multimodal pain management (two or more drugs and/or interventions excluding systemic opioids) in the periopeartive period occurring at some time between 6 hours prior to anesthesia start time until discharged from PACU (G2148) MIPS #404 Anesthesiology Smoking Abstinence The patient is a current smoker (G9642) (e.g. cigarette, cigar, pipe, e-cigarette/vaping/marijuana) The patient underwent an elective surgery or procedure requiring anesthesia (G9643) The patient received preop smoking cessation instructions prior to the day of surgery or procedure by , RADHA sheet pile hammer operator proxy staff (G9497) The patient did smoke the day of the procedure (G9645) I completed my handoff to the receiving clinician during which we: 1. Identified the patient 2. Identified the responsible provider 3. Reviewed the pertinent medical history 4. Discussed the surgical course 5. Reviewed intra-op anesthesia management and issues during anesthesia 6. Set expectations for post-procedure period 7. Allowed opportunity for questions and acknowledgement of understanding.[facility]06-30-2023 Miscellaneous Notes* Perioperative Nursing Note - Reji Rojas RN - 04/09/2023 1:40 PM EDT Pt and family verbalized understanding of recovery instructions, pt verbalized a readiness to be discharged home. Pt discharged home via wheelchair accompanied by RN/volunteer. Pt has had all their belongings returned to them at discharge * Perioperative Nursing Note - Reji Rojas RN - 04/09/2023 12:13 PM EDT Pt received from OR via cart, spont. Resp. With CASTING MACHINE OPERATOR in attendance. Placed on monitor. Monitor alarms on in PACU * Op Note - Karan Chavez MD - 04/09/2023 11:12 AM EDT [facility] [place] [address] Dept: [phone] Loc: [phone] Operative Report Patient Name: Reji Foley Date of : 1950 Date of Surgery: 04/09/23 Preoperative Diagnosis: Left cubital tunnel syndrome Left DeQuervain's Tenosynovitis Left First Carpometacarpal Joint Osteoarthritis Postoperative Diagnosis: Same Procedure: Left cubital tunnel decompression Left First Dorsal Compartment Release Left First Carpometacarpal Joint Injection Surgeon: Karan Chavez MD 1st Assist: Mary Kwong PA-C 2nd Assist: None Implants: None Specimens Removed: None Anesthesia: MAC/Regional Local Anesthesia: 1% lidocaine with epinephrine (1:100,000) for a total of 20ml into the subcutaneous tissues of the operative site(s) Tourniquet: Brachium Estimated Blood Loss: <5ml Pre Operative Antibiotics: Yes Indications: Ms. Reji Foley is a 72 y.o. year-old femalewith cubital tunnel syndrome who failedconservative management and elected to proceed with operative intervention. I have discussed with her, preoperatively, the complications, limitations, expectations, alternatives, and risks of surgical intervention which she has demonstrated understanding. No guarantees were given or implied. After having all of her questions answered to her satisfaction, Ms. Reji Foley has provided written informed consent to proceed. Please see previous notes for full operative risk discussion. Procedure: Reji Foley was identified in the preoperative waiting area. Her operative site was initialed and consent was reviewed. Final questions were answered. She was brought to the operating room and placed in the supine position. All bony prominences were well padded. The operative extremity was prepped and draped in the usual sterile fashion. A surgical timeout was then performed with the patient's identification, the procedure to be performed being reviewed, verification that the patient had received preoperative antibiotics if indicated, and verification of the correct surgical site. The patient's ASA was verified by the nurse senior sales engineer and the anesthesia staff. Fire risk was ass essed. An esmarch bandage was used to exsanguinate the limb and the tourniquet was inflated to 250mm Hg. Attention was turned to the radial wrist. A transverse incision was made 1 cm proximal to the radial styloid over the palpable first dorsal compartment tendon sheath. Care was taken in the subcutaneous dissection to avoid and protect the radial sensory nerve branches in the region. The soft tissue was cleared from the first dorsal compartment sheath. The sheath was incised longitudinally along its dorsal margin to visualize the APL and EPB tendons. Careful inspection did not reveal an accessoryEPB compartment. At the completion of the decompression both proximally and distally, the multiple slips of the APL tendon and the EPB tendon were completely free and were brought out of the wound for close inspection. There was not significant synovitis. They were returned to their appropriate anatomic location. A curvilinear incision was made over the medial elbow. Blunt dissection was carried down to the subcutaneous tissues to identify and mobilize any branches of the medial antebrachial cutaneous nerve. The ulnar nerve was identified and decompressed from the upper brachium through Thorpe's ligament and into both the superficial and deep fascial bands of the FCU. I then passively range the elbow andnoted the nerve to remain well seated in the ulnar groove. The ulnar nerve was left within the ulnar groove. The tourniquet was then deflated and hemostasis achieved with bipolar cautery and gentle compression. The wound was irrigated normal saline and local placed within the subcutaneous tissues for additional hemostasis. The skin was closed in layers followed by an impervious bandage and a simple sling. Procedure Note: Small Joint Injection The LEFT thumb CMC was identified as the injection site. I discussed the risks/benefits of a corticosteroid injection to include but not be limited to infection, subcutaneous fat atrophy, elevated blood glucose, local redness and pain. After discussion of the risk/benefits the patient elected to proceed. Under sterile conditions, the joint was injected with a mixture of 0.5 mL of 1% Lidocaine and0.5 mL of Celestone (6mg/ml) without complication. A sterile bandage was applied. Reji toleratedthe procedure well without complication. I advised Reji of the expected response, possible reactions and the instructions for care of herhand. Ms. Reji Foley was taken to the recovery room in stable condition. POST OPERATIVE PLAN Begin immediate ulnar nerve glides and gentle hand, wrist, and elbow ROM PWB 5lbs X 2 weeks Outpatient Follow-up XRays: No Karan Chavez MD 04/09/2023 , 3:39 PM documented in this [facility]06-30-2023 Note* Perioperative Nursing Note - Reji Rojas RN - 04/09/2023 1:40 PM EDT Pt and family verbalized understanding of recovery instructions, pt verbalized a readiness to be discharged home. Pt discharged home via wheelchair accompanied by RN/volunteer. Pt has had all their belongings returned to them at [id number] Note* Perioperative Nursing Note - Reji Rojas RN - 04/09/2023 1:40 PM EDT Pt and family verbalized understanding of recovery instructions, pt verbalized a readiness to be discharged home. Pt discharged home via wheelchair accompanied by RN/volunteer. Pt has had all their belongings returned to them at [facility] [id number] NoteAirway Date/Time: 04/09/2023 11:19 AM Urgency: scheduled Airway not difficult General Information and Staff Patient location during procedure: Procedural Anesthesiologist: Dustin Denson Jr., MD Resident/CASTING MACHINE OPERATOR: SHANTA Prasad CRNA Performed: CASTING MACHINE OPERATOR Performed by: SHANTA Prasad CRNA Authorized by: SHANTA Prasad CRNA Indications and Patient Condition Indications for airway management: airway protection and anesthesia Sedation level: Asleep Preoxygenated: yes Mask difficulty assessment: 0 - not attempted Final Airway Details Final airway type: supraglottic airway Successful airway: Igel Size 4 Number of attempts at approach: [address] [place], [place] [id number] Procedure anesthesia Narrative* Procedure Summary Procedure Name Responsible Anesthesiologist Anesthesia Start Time Anesthesia Stop Time Ulnar nerve decompression with possible tranposition left elbow, Left first dorsal compartment decompression, and Left thumb carpometacarpal joint steroid injection (Left: Elbow) Dustin Denson Jr., MD 04/09/23 1113 04/09/23 1216 Events Date Time Event Comment 04/09/2023 1112 In Room 1113 An Start 1113 An Start Data 1114 1117 An Induction The patient was reevaluated immediately before moderate or deep sedation use and before anesthesia induction. 1119 An Intubation 1119 Anesthesia Ready 1132 An Tourn Inflated 250 mmHg 1134 Proc Start 1146 An Tourn Deflated 1207 An Extubation - Spontaneous ventilation - Patient suctioned - Airway removed without difficulty - Spontaneous ventilation maintained 1209 Proc Fin 1210 an stop data 1210 Out of Room 1216 An Stop Meds Name Total lidocaine PF (Xylocaine-MPF) local injec tion 2 % 100 mg propofol (Diprivan) injection 10 mg/mL 1 20 mg ondansetron (Zofran) 2 mg/mL injection 4 mg ketorolac (Toradol) injection 30 mg 15 m g glycopyrrolate (Robinul) injection 0.2 m g ePHEDrine injection 20 mg ceFAZolin in dextrose 4% (Ancef) IVPB 2, 000 mg 2,000 mg lactated Ringer's infusion 500 mL * Agents Name O2 Air Sevoflurane * Blood No blood administrations on file. Lines, Drains, and Airways Type Details Placement Removal Wound/Incision Incision; Other (Comment) (wrist, elbow, thumb); Anterior, Right 04/09/23 1138 by Peripheral IV Placement Date: 04/09/23; Placement Time: 1027; Catheter Size: 20 G; Orientation: Anterior, Distal, Right; Location: Forearm; Site Prep: Alcohol; Local Anesth: None; Inserted by: NOHELIA Gonzalez; Insertion Attempts: 1; Difficult Venous Access? No; Patient Tolerance: Tolerated well; Removal Date: 04/09/23; Removal Time: 1340; Removal Reason: Patient discharged 04/09/23 1027 by Amanda Oleary RN 04/09/23 1340 by Reji Rojas RN Supraglottic Airway Placement Date: 04/09/23; Placement Time: 1119 (created via procedure documentation); Mask Ventilation: 0; Size: 4; Insertion Attempts: 1; Removal Date: 04/09/23; Removal Time: 1207 04/09/23 1119 by SHANTA Prasad CRNA 04/09/23 1207 by SHANTA Prasad CRNA documented in this encounter [facility] [id number] NotePeripheral Block Time Out: 04/09/2023 10:55 AM Patient location during procedure: Procedural Start time: 04/09/2023 10:56 AM End time: 04/09/2023 11:05 AM Reason for block: at surgeon's request and post-op pain management Staffing Performed: anesthesiologist Anesthesiologist: Dustin Denson Jr., MD Preanesthetic Checklist Completed: patient identified, IV checked, site marked, risks and benefits discussed, surgical consent, monitors and equipment checked, pre-op evaluation and timeout performed Region: Upper Extremities Primary: Supraclavicular Peripheral Block Patient position: supine Prep: ChloraPrep Patient monitoring: continuous pulse ox, heart rate and environmental monitoring technician O2: Nasal cannula Laterality: left Injection technique: single-shot Guidance: nerve stimulator and ultrasound guided -image retained in chart, tip of the needle identified by ultraound during injection. Local infiltration: lidocaine Infiltration strength: 1 % Dose: 3 mL Needle Needle: 22G X 50 mm Additional Notes Patient Position - Supine w/head elevated Nerve stimulating, Minimum current when twitches disappeared at 0.3mA Post Procedure - Patient tolerated procedure well. No complications noted 30 mL 0.375% Bupivacaine HCL with decadron sodium phosphate 0.01% & Epi 1:200,000 04/09/2023 10:56 AM Assessment Injection assessment: negative aspiration for heme, no paresthesia on injection, incremental injection and local visualized surrounding nerve on ultrasound Paresthesia pain: none Heart rate change: no Slow fractionated injection: yes Required Documentation: Relevant anatomy identified (Nerves, Vessels, Muscles), Negative for blood on aspiration, Local anesthetic injected incrementally with intermittent aspiration every 5 mL, Normal resistance with injection, Local anesthetic spread visualized around nerves or plane., No EKG changes noted, No symptoms of toxicity and No paresthesias reported by patient during injection [facility]06-30-2023 NoteH&P reviewed. The patient was examined and there are no changes to the H&P.[facility]06-30-2023 Note* Anesthesia Discharge Note - Stephanie Noguera APRN - CASTING MACHINE OPERATOR - 04/09/2023 12:17 PM EDT Patient: Reji Foley Procedure Summary Date: 04/09/23 Room / Location: [address] Operating Room Anesthesia Start: 1113 Anesthesia Stop: 1216 Procedures: Ulnar nerve decompression with possible tranposition left elbow, Left first dorsal compartment decompression, and Left thumb carpometacarpal joint steroid injection (Left: Elbow) INCISION EXTENSOR TENDON SHEATH WRIST (RELEASE DEQUERVAINS CONTRACTURE) (Left: Wrist) ARTHROCENTESIS ASPIRATION AND/OR INJECTION SMALL JOINT OR BURSA (Left: Hand) Diagnosis: Carpal tunnel syndrome, left upper limb Radial styloid tenosynovitis (de quervain) Unilateral primary osteoarthritis of first carpometacarpal joint, left hand (Carpal tunnel syndrome, left upper limb [G56.02]) (Radial styloid tenosynovitis (de quervain) [M65.4]) (Unilateral primary osteoarthritis of first carpometacarpal joint, left hand [M18.12]) Surgeons: Karan Chavez MD Responsible Provider: Dustin Denson Jr., MD Anesthesia Type: general, regional ASA Status: 3 Anesthesia Type: general, regional Vitals Value Taken Time BP 136/81 04/09/23 1217 Temp 97.3 04/09/23 1217 Pulse 76 04/09/23 1217 Resp 20 04/09/23 1217 SpO2 98 04/09/23 1217 Anesthesia Post Evaluation Patient location during evaluation: PACU Patient participation: complete - patient participated Level of consciousness: awake and alert Pain management: satisfactory to patient Airway patency: patent Dental Injury: no Cardiovascular status: acceptable, blood pressure returned to baseline and hemodynamically stable Respiratory status: acceptable and spontaneous ventilation Hydration status: euvolemic Nausea/Vomiting: controlled No notable events documented. Patient can be discharged once all PACU criteria has been met. [facility] [id number] Anesthesiology Postoperative evaluation and management note* Anesthesia Postprocedure Evaluation - Dustin Denson Jr., MD - 04/09/2023 12:16 PM EDT Patient: Reji Foley Procedure Summary Date: 04/09/23 Room / Location: [address] Operating Room Anesthesia Start: 1113 Anesthesia Stop: 1216 Procedures: Ulnar nerve decompression with possible tranposition left elbow, Left first dorsal compartment decompression, and Left thumb carpometacarpal joint steroid injection (Left: Elbow) INCISION EXTENSOR TENDON SHEATH WRIST (RELEASE DEQUERVAINS CONTRACTURE) (Left: Wrist) ARTHROCENTESIS ASPIRATION AND/OR INJECTION SMALL JOINT OR BURSA (Left: Hand) Diagnosis: Carpal tunnel syndrome, left upper limb Radial styloid tenosynovitis (de quervain) Unilateral primary osteoarthritis of first carpometacarpal joint, left hand (Carpal tunnel syndrome, left upper limb [G56.02]) (Radial styloid tenosynovitis (de quervain) [M65.4]) (Unilateral primary osteoarthritis of first carpometacarpal joint, left hand [M18.12]) Surgeons: Karan Chavez MD Responsible Provider: Dustin Denson Jr., MD Anesthesia Type: general, regional ASA Status: 3 Anesthesia Type: general, regional Vitals Value Taken Time BP 136/81 04/09/23 1216 Temp 97.3 04/09/23 1216 Pulse 76 04/09/23 1216 Resp 20 04/09/23 1216 SpO2 98 04/09/23 1216 Anesthesia Post Evaluation Patient location during evaluation: PACU Patient participation: complete - patient participated Level of consciousness: awake and alert Pain score: 0 Pain management: satisfactory to patient Multimodal analgesia pain management approach Airway patency: patent Two or more strategies used to mitigate risk of obstructive sleep apnea Cardiovascular status: acceptable and hemodynamically stable Respiratory status: acceptable Hydration status: acceptable No notable events documented. MIPS #430 PONV Patient received an inhalational anesthetic (4554F) Patient does not exhibit three or more risk factors for PONV (X0430)) MIPS # 424 Perioperative Temperature Management Anesthesia time was less than 60 minutes (4256F) MIPS #477 Multimodal Pain Management Not emergent case Patient was administered multimodal pain management (two or more drugs and/or interventions excluding systemic opioids) in the periopeartive period occurring at some time between 6 hours prior to anesthesia start time until discharged from PACU (G2148) MIPS #404 Anesthesiology Smoking Abstinence The patient is a current smoker (G9642) (e.g. cigarette, cigar, pipe, e-cigarette/vaping/marijuana) The patient underwent an elective surgery or procedure requiring anesthesia (G9643) The patient received preop smoking cessation instructions prior to the day of surgery or procedure by , APC sheet pile hammer operator proxy staff (G9497) The patient did not smoke the day of the procedure (G9644) The patient did not smoked the day of the procedure (G9644) I completed my handoff to the receiving clinician during which we: 1. Identified the patient 2. Identified the responsible provider 3. Reviewed the pertinent medical history 4. Discussed the surgical course 5. Reviewed intra-op anesthesia management and issues during anesthesia 6. Set expectations for post-procedure period 7. Allowed opportunity for questions and acknowledgement of understanding. [employer] Phone: 1(424) 404-512606-30-2023 Surgical operation note* Anesthesia Postprocedure Evaluation - Dustin Denson Jr., MD - 04/09/2023 12:16 PM EDT Patient: Reji Foley Procedure Summary Date: 04/09/23 Room / Location: [address] Operating Room Anesthesia Start: 1113 Anesthesia Stop: 1216 Procedures: Ulnar nerve decompression with possible tranposition left elbow, Left first dorsal compartment decompression, and Left thumb carpometacarpal joint steroid injection (Left: Elbow) INCISION EXTENSOR TENDON SHEATH WRIST (RELEASE DEQUERVAINS CONTRACTURE) (Left: Wrist) ARTHROCENTESIS ASPIRATION AND/OR INJECTION SMALL JOINT OR BURSA (Left: Hand) Diagnosis: Carpal tunnel syndrome, left upper limb Radial styloid tenosynovitis (de quervain) Unilateral primary osteoarthritis of first carpometacarpal joint, left hand (Carpal tunnel syndrome, left upper limb [G56.02]) (Radial styloid tenosynovitis (de quervain) [M65.4]) (Unilateral primary osteoarthritis of first carpometacarpal joint, left hand [M18.12]) Surgeons: Karan Chavez MD Responsible Provider: Dustin Denson Jr., MD Anesthesia Type: general, regional ASA Status: 3 Anesthesia Type: general, regional Vitals Value Taken Time BP 136/81 04/09/23 1216 Temp 97.3 04/09/23 1216 Pulse 76 04/09/23 1216 Resp 20 04/09/23 1216 SpO2 98 04/09/23 1216 Anesthesia Post Evaluation Patient location during evaluation: PACU Patient participation: complete - patient participated Level of consciousness: awake and alert Pain score: 0 Pain management: satisfactory to patient Multimodal analgesia pain management approach Airway patency: patent Two or more strategies used to mitigate risk of obstructive sleep apnea Cardiovascular status: acceptable and hemodynamically stable Respiratory status: acceptable Hydration status: acceptable No notable events documented. MIPS #430 PONV Patient received an inhalational anesthetic (9784F) Patient does not exhibit three or more risk factors for PONV (X0430)) MIPS # 424 Perioperative Temperature Management Anesthesia time was less than 60 minutes (4256F) MIPS #477 Multimodal Pain Management Not emergent case Patient was administered multimodal pain management (two or more drugs and/or interventions excluding systemic opioids) in the periopeartive period occurring at some time between 6 hours prior to anesthesia start time until discharged from PACU (G2148) MIPS #404 Anesthesiology Smoking Abstinence The patient is a current smoker (G9642) (e.g. cigarette, cigar, pipe, e-cigarette/vaping/marijuana) The patient underwent an elective surgery or procedure requiring anesthesia (G9643) The patient received preop smoking cessation instructions prior to the day of surgery or procedure by , RADHA sheet pile hammer operator proxy staff (G9497) The patient did not smoke the day of the procedure (G9644) The patient did not smoked the day of the procedure (G9644) I completed my handoff to the receiving clinician during which we: 1. Identified the patient 2. Identified the responsible provider 3. Reviewed the pertinent medical history 4. Discussed the surgical course 5. Reviewed intra-op anesthesia management and issues during anesthesia 6. Set expectations for post-procedure period 7. Allowed opportunity for questions and acknowledgement of understanding. * Anesthesia Procedure Notes - SHANTA Prasad CRNA - 04/09/2023 11:27 AM EDTAssociated Order(s): Airway Airway Date/Time: 04/09/2023 11:19 AM Urgency: scheduled Airway not difficult General Information and Staff Patient location during procedure: Procedural Anesthesiologist: Dustin Denson Jr., MD Resident/CASTING MACHINE OPERATOR: SHANTA Prasad CRNA Performed: CASTING MACHINE OPERATOR Performed by: SHANTA Prasad CRNA Authorized by: SHANTA Prasad CRNA Indications and Patient Condition Indications for airway management: airway protection and anesthesia Sedation level: Asleep Preoxygenated: yes Mask difficulty assessment: 0 - not attempted Final Airway Details Final airway type: supraglottic airway Successful airway: Igel Size 4 Number of attempts at approach: 1 * Anesthesia Procedure Notes - Dustin Denson Jr., MD - 04/09/2023 11:12 AM EDT Associated Order(s): Peripheral Block Peripheral Block Time Out: 04/09/2023 10:55 AM Patient location during procedure: Procedural Start time: 04/09/2023 10:56 AM End time: 04/09/2023 11:05 AM Reason for block: at surgeon's request and post-op pain management Staffing Performed: anesthesiologist Anesthesiologist: Dustin Denson Jr., MD Preanesthetic Checklist Completed: patient identified, IV checked, site marked, risks and benefits discussed, surgical consent, monitors and equipment checked, pre-op evaluation and timeout performed Region: Upper Extremities Primary: Supraclavicular Peripheral Block Patient position: supine Prep: ChloraPrep Patient monitoring: continuous pulse ox, heart rate and environmental monitoring technician O2: Nasal cannula Laterality: left Injection technique: single-shot Guidance: nerve stimulator and ultrasound guided -image retained in chart, tip of the needle identified by ultraound during injection. Local infiltration: lidocaine Infiltration strength: 1 % Dose: 3 mL Needle Needle: 22G X 50 mm Additional Notes Patient Position - Supine w/head elevated Nerve stimulating, Minimum current when twitches disappeared at 0.3mA Post Procedure - Patient tolerated procedure well. No complications noted 30 mL 0.375% Bupivacaine HCL with decadron sodium phosphate 0.01% & Epi 1:200,000 PF04/09/2023 10:56 AM Assessment Injection assessment: negative aspiration for heme, no paresthesia on injection, incremental injection and local visualized surrounding nerve on ultrasound Paresthesia pain: none Heart rate change: no Slow fractionated injection: yes Required Documentation: Relevant anatomy identified (Nerves, Vessels, Muscles), Negative for blood on aspiration, Local anesthetic injected incrementally with intermittent aspiration every 5 mL, Normal resistance with injection, Local anesthetic spread visualized around nerves or plane., No EKG changes noted, No symptoms of toxicity and No paresthesias reported by patient during injection * Anesthesia Preprocedure Evaluation - Dustin Denson Jr., MD - 04/02/2023 2:40 PM EDT Patient: Reji Foley Procedure Information Date/Time: 04/09/23 1200 Procedures: Ulnar nerve decompression with possible tranposition left elbow, Left first dorsal compartment decompression, and Left thumb carpometacarpal joint steroid injection (Left: Elbow) - 45 INCISION EXTENSOR TENDON SHEATH WRIST (RELEASE DEQUERVAINS CONTRACTURE) (Left: Wrist) ARTHROCENTESIS ASPIRATION AND/OR INJECTION SMALL JOINT OR BURSA (Left: Hand) Location: [address] Operating Room Surgeons: Karan Chavez MD Past Medical History: Past Medical History: No date: Anxiety No date: Elevated cholesterol No date: GERD (gastroesophageal reflux disease) No date: Hypertension Comment: pt unsure. pt states placed on BP meds after stroke No date: Pain in left arm No date: Stroke (HCC) Comment: over a year ago Past Surgical History: Past Surgical History: No date: CORNEAL TRANSPLANT; Left No date: TONSILLECTOMY No date: TUBAL LIGATION Social History: TOBACCO: reports that she has been smoking cigarettes. She has a 51.00 pack-year smoking history. She has never used smokeless tobacco. ETOH: reports current alcohol use. Social History Substance and Sexual Activity Drug Use Never Family History: No family history on file. Screening: Postmenopausal Clinical information reviewed: Tobacco Allergies Meds Med Hx Surg Hx OB Status Fam Hx Soc Hx Physical Exam Airway Mallampati: III TM distance: >3 FB Neck ROM: full Mouth Open: normalendotracheal tube not in place Cardiovascular Dental (+) Upper Dentures Comments: Lower implant and upper plate Pulmonary Abdominal Other findings: Lower implants GERD controlled - on omeprazole (PriLOSEC) Anesthesia Plan patient is NPO appropriate Any family history or previous problems with anesthesia no ASA 3 general and regional Any family history or previous problems with anesthesia no (Brachial plexus Discussed regional anesthesia for post operative pain reduction, all benefits and risks/complications. All questions were answered. Patient consents to a regional anesthesia for post operative pain control.) The patient is a current smoker. Patient was previously instructed to abstain from smoking on day of procedure. Patient did not smoke on day of procedure. Anesthetic plan and risks discussed with patient. Anesthesia [place]eda Considerations Corneal transplant OS ERAS Type Tylenol, Pepcid PRAVEEN Screening STOP-Bang Total Score: 2 Labs: Lab Results Component Value Date HGB 14.7 04/02/2023 HCT 43.4 04/02/2023 Lab Results Component Value Date NA 136 04/02/2023 K 3.6 04/02/2023 CL 105 04/02/2023 CO2 24 04/02/2023 BUN 15 04/02/2023 CREATININE 0.93 04/02/2023 GLUCOSE 101 (H) 04/02/2023 CALCIUM 8.5 04/02/2023 EGFR 65.8 04/02/2023 Pain Score: 6 EKG prelim 04/02/2023 IMPRESSION: Sinus bradycardia Borderline T abnormalities, anterior leads Electronically Signed On 04-04-2023 9:13:59 EDT by Yvette Keys No results found for this or any previous visit. documented in this [facility]06-30-2023 Note* Perioperative Nursing Note - Reji Rojas RN - 04/09/2023 12:13 PM EDT Pt received from OR via cart, spont. Resp. With CASTING MACHINE OPERATOR in attendance. Placed on monitor. Monitor alarms on [facility] PACU [facility] [id number] Note* Perioperative Nursing Note - Reji Rojas RN - 04/09/2023 12:13 PM EDT Pt received from OR via cart, spont. Resp. With CASTING MACHINE OPERATOR in attendance. Placed on monitor. Monitor alarms on [facility] PACU [facility] [id number] Anesthesiology procedure note* Anesthesia Procedure Notes - SHANTA Prasad CRNA - 04/09/2023 11:27 AM EDTAssociated Order(s): Airway Airway Date/Time: 04/09/2023 11:19 AM Urgency: scheduled Airway not difficult General Information and Staff Patient location during procedure: Procedural Anesthesiologist: Dustin Denson Jr., MD Resident/CASTING MACHINE OPERATOR: SHANTA Prasad CRNA Performed: CASTING MACHINE OPERATOR Performed by: SHANTA Prasad CRNA Authorized by: SHANTA Prasad CRNA Indications and Patient Condition Indications for airway management: airway protection and anesthesia Sedation level: Asleep Preoxygenated: yes Mask difficulty assessment: 0 - not attempted Final Airway Details Final airway type: supraglottic airway Successful airway: Igel Size 4 Number of attempts at approach: 1 [employer] Phone: 1([phone]) 783-406806-30-2023 Anesthesiology procedure note* Anesthesia Procedure Notes - Dustin Denson Jr., MD - 04/09/2023 11:12 AM EDTAssociated Order(s): Peripheral Block Peripheral Block Time Out: 04/09/2023 10:55 AM Patient location during procedure: Procedural Start time: 04/09/2023 10:56 AM End time: 04/09/2023 11:05 AM Reason for block: at surgeon's request and post-op pain management Staffing Performed: anesthesiologist Anesthesiologist: Dustin Denson Jr., MD Preanesthetic Checklist Completed: patient identified, IV checked, site marked, risks and benefits discussed, surgical consent, monitors and equipment checked, pre-op evaluation and timeout performed Region: Upper Extremities Primary: Supraclavicular Peripheral Block Patient position: supine Prep: ChloraPrep Patient monitoring: continuous pulse ox, heart rate and environmental monitoring technician O2: Nasal cannula Laterality: left Injection technique: single-shot Guidance: nerve stimulator and ultrasound guided -image retained in chart, tip of the needle identified by ultraound during injection. Local infiltration: lidocaine Infiltration strength: 1 % Dose: 3 mL Needle Needle: 22G X 50 mm Additional Notes Patient Position - Supine w/head elevated Nerve stimulating, Minimum current when twitches disappeared at 0.3mA Post Procedure - Patient tolerated procedure well. No complications noted 30 mL 0.375% Bupivacaine HCL with decadron sodium phosphate 0.01% & Epi 1:200,000 04/09/2023 10:56 AM Assessment Injection assessment: negative aspiration for heme, no paresthesia on injection, incremental injection and local visualized surrounding nerve on ultrasound Paresthesia pain: none Heart rate change: no Slow fractionated injection: yes Required Documentation: Relevant anatomy identified (Nerves, Vessels, Muscles), Negative for blood on aspiration, Local anesthetic injected incrementally with intermittent aspiration every 5 mL, Normal resistance with injection, Local anesthetic spread visualized around nerves or plane., No EKG changes noted, No symptoms of toxicity and No paresthesias reported by patient during injection [id number] Note* Op Note - Karan Chavez MD - 04/09/2023 11:12 AM EDT [facility] MAIN OR [address] [place] [id number] Dept: [phone] Loc: [phone] Operative Report Patient Name: Reji Foley Date of : 1950 Date of Surgery: 04/09/23 Preoperative Diagnosis: Left cubital tunnel syndrome Left DeQuervain's Tenosynovitis Left First Carpometacarpal Joint Osteoarthritis Postoperative Diagnosis: Same Procedure: Left cubital tunnel decompression Left First Dorsal Compartment Release Left First Carpometacarpal Joint Injection Surgeon: Karan Chavez MD 1st Assist: Mary Kwong PA-C 2nd Assist: None Implants: None Specimens Removed: None Anesthesia: MAC/Regional Local Anesthesia: 1% lidocaine with epinephrine (1:100,000) for a total of 20ml into the subcutaneous tissues of the operative site(s) Tourniquet: Brachium Estimated Blood Loss: <5ml Pre Operative Antibiotics: Yes Indications: Ms. Reji Foley is a 72 y.o. year-old femalewith cubital tunnel syndrome who failedconservative management and elected to proceed with operative intervention. I have discussed with her, preoperatively, the complications, limitations, expectations, alternatives, and risks of surgical intervention which she has demonstrated understanding. No guarantees were given or implied. After having all of her questions answered to her satisfaction, Ms. Reji Foley has provided written informed consent to proceed. Please see previous notes for full operative risk discussion. Procedure: Reji Foley was identified in the preoperative waiting area. Her operative site was initialed and consent was reviewed. Final questions were answered. She was brought to the operating room and placed in the supine position. All bony prominences were well padded. The operative extremity was prepped and draped in the usual sterile fashion. A surgical timeout was then performed with the patient's identification, the procedure to be performed being reviewed, verification that the patient had received preoperative antibiotics if indicated, and verification of the correct surgical site. The patient's ASA was verified by the nurse senior sales engineer and the anesthesia staff. Fire risk was ass essed. An esmarch bandage was used to exsanguinate the limb and the tourniquet was inflated to 250mm Hg. Attention was turned to the radial wrist. A transverse incision was made 1 cm proximal to the radial styloid over the palpable first dorsal compartment tendon sheath. Care was taken in the subcutaneous dissection to avoid and protect the radial sensory nerve branches in the region. The soft tissue was cleared from the first dorsal compartment sheath. The sheath was incised longitudinally along its dorsal margin to visualize the APL and EPB tendons. Careful inspection did not reveal an accessoryEPB compartment. At the completion of the decompression both proximally and distally, the multiple slips of the APL tendon and the EPB tendon were completely free and were brought out of the wound for close inspection. There was not significant synovitis. They were returned to their appropriate anatomic location. A curvilinear incision was made over the medial elbow. Blunt dissection was carried down to the subcutaneous tissues to identify and mobilize any branches of the medial antebrachial cutaneous nerve. The ulnar nerve was identified and decompressed from the upper brachium through Thorpe's ligament and into both the superficial and deep fascial bands of the FCU. I then passively range the elbow andnoted the nerve to remain well seated in the ulnar groove. The ulnar nerve was left within the ulnar groove. The tourniquet was then deflated and hemostasis achieved with bipolar cautery and gentle compression. The wound was irrigated normal saline and local placed within the subcutaneous tissues for additional hemostasis. The skin was closed in layers followed by an impervious bandage and a simple sling. Procedure Note: Small Joint Injection The LEFT thumb CMC was identified as the injection site. I discussed the risks/benefits of a corticosteroid injection to include but not be limited to infection, subcutaneous fat atrophy, elevated blood glucose, local redness and pain. After discussion of the risk/benefits the patient elected to proceed. Under sterile conditions, the joint was injected with a mixture of 0.5 mL of 1% Lidocaine and0.5 mL of Celestone (6mg/ml) without complication. A sterile bandage was applied. Reji toleratedthe procedure well without complication. I advised Reji of the expected response, possible reactions and the instructions for care of herhand. Ms. Reij Foley was taken to the recovery room in stable condition. POST OPERATIVE PLAN Begin immediate ulnar nerve glides and gentle hand, wrist, and elbow ROM PWB 5lbs X 2 weeks Outpatient Follow-up XRays: No Karan Chavez MD 04/09/2023 , 3:[address] [facility] [employer] Phone: [phone] 868-458406-30-2023 Note* Op Note - Karan Chavez MD - 04/09/2023 11:12 AM EDT [facility] MA[facility] OR [address] [facility] [address] Dept: [phone] Loc: [phone] Operative Report Patient Name: Reji Foley Date of : 1950 Date of Surgery: 04/09/23 Preoperative Diagnosis: Left cubital tunnel syndrome Left DeQuervain's Tenosynovitis Left First Carpometacarpal Joint Osteoarthritis Postoperative Diagnosis: Same Procedure: Left cubital tunnel decompression Left First Dorsal Compartment Release Left First Carpometacarpal Joint Injection Surgeon: Karan Chavez MD 1st Assist: Mary Kwong PA-C 2nd Assist: None Implants: None Specimens Removed: None Anesthesia: MAC/Regional Local Anesthesia: 1% lidocaine with epinephrine (1:100,000) for a total of 20ml into the subcutaneous tissues of the operative site(s) Tourniquet: Brachium Estimated Blood Loss: <5ml Pre Operative Antibiotics: Yes Indications: Ms. Reji Foley is a 72 y.o. year-old femalewith cubital tunnel syndrome who failedconservative management and elected to proceed with operative intervention. I have discussed with her, preoperatively, the complications, limitations, expectations, alternatives, and risks of surgical intervention which she has demonstrated understanding. No guarantees were given or implied. After having all of her questions answered to her satisfaction, Ms. Reji Foley has provided written informed consent to proceed. Please see previous notes for full operative risk discussion. Procedure: Reji Foley was identified in the preoperative waiting area. Her operative site was initialed and consent was reviewed. Final questions were answered. She was brought to the operating room and placed in the supine position. All bony prominences were well padded. The operative extremity was prepped and draped in the usual sterile fashion. A surgical timeout was then performed with the patient's identification, the procedure to be performed being reviewed, verification that the patient had received preoperative antibiotics if indicated, and verification of the correct surgical site. The patient's ASA was verified by the nurse senior sales engineer and the anesthesia staff. Fire risk was ass essed. An esmarch bandage was used to exsanguinate the limb and the tourniquet was inflated to 250mm Hg. Attention was turned to the radial wrist. A transverse incision was made 1 cm proximal to the radial styloid over the palpable first dorsal compartment tendon sheath. Care was taken in the subcutaneous dissection to avoid and protect the radial sensory nerve branches in the region. The soft tissue was cleared from the first dorsal compartment sheath. The sheath was incised longitudinally along its dorsal margin to visualize the APL and EPB tendons. Careful inspection did not reveal an accessoryEPB compartment. At the completion of the decompression both proximally and distally, the multiple slips of the APL tendon and the EPB tendon were completely free and were brought out of the wound for close inspection. There was not significant synovitis. They were returned to their appropriate anatomic location. A curvilinear incision was made over the medial elbow. Blunt dissection was carried down to the subcutaneous tissues to identify and mobilize any branches of the medial antebrachial cutaneous nerve. The ulnar nerve was identified and decompressed from the upper brachium through Thorpe's ligament and into both the superficial and deep fascial bands of the FCU. I then passively range the elbow andnoted the nerve to remain well seated in the ulnar groove. The ulnar nerve was left within the ulnar groove. The tourniquet was then deflated and hemostasis achieved with bipolar cautery and gentle compression. The wound was irrigated normal saline and local placed within the subcutaneous tissues for additional hemostasis. The skin was closed in layers followed by an impervious bandage and a simple sling. Procedure Note: Small Joint Injection The LEFT thumb CMC was identified as the injection site. I discussed the risks/benefits of a corticosteroid injection to include but not be limited to infection, subcutaneous fat atrophy, elevated blood glucose, local redness and pain. After discussion of the risk/benefits the patient elected to proceed. Under sterile conditions, the joint was injected with a mixture of 0.5 mL of 1% Lidocaine and0.5 mL of Celestone (6mg/ml) without complication. A sterile bandage was applied. Reji toleratedthe procedure well without complication. I advised Reji of the expected response, possible reactions and the instructions for care of herhand. Ms. Reji Foley was taken to the recovery room in stable condition. POST OPERATIVE PLAN Begin immediate ulnar nerve glides and gentle hand, wrist, and elbow ROM PWB 5lbs X 2 weeks Outpatient Follow-up XRays: No Karan Chavez MD 04/09/2023 , 3:39 PM [facility] Phone: [phone] History and physical note* ROSE MARIE Harris - 04/09/2023 10:27 AM EDT H&P reviewed. The patient was examined and there are no changes to the H&P. [facility] [id number] History and physical note* ROSE MARIE Harris - 04/09/2023 10:27 AM EDT H&P reviewed. The patient was examined and there are no changes to the H&P. documented in this [facility]06-28-2023 Hospital Discharge instructions* Discharge Instructions* ROSE MARIE Harris - 04/07/2023 4:25 PM EDT Images from the original note were not included. Bandage: Keep your operative bandages on, clean, and dry for one week. After one week from the date of surgery, you can remove only the wrapped dressing and guaze at the wrist and clear bandage and guaze at the elbow. Underneath the bandage at the elbow, you have skin glue called DermaBond over the incision. You will also notice Steri-Strips/white tapes at the ends of the incisions holding a suture in place- please leave white tapes intact until your follow-up appointment. It is okay to shower and get the clear bandage wet as it is waterproof but do not soak. You can also shower once you remove the bandages to include light soap and water but do not soak. Dry thoroughly after showering and place a wrapped bandage over the incisions which is to be changed daily after the surgical dressing is removed. Swelling control: Elevate and Ice for pain control. Immobilization: Encourage range of motion of hand, wrist, and elbow in dressing to include nerve gliding exercises pictured below. Weightbearing: Non weight bearing in operative extremity. Nerve block for pain control: If you have any questions regarding your nerve block, please refer to the information packet provided in your post op folder. You can also call (generic nurse) or [phone] and [facility] sr risk management consultant for further questions or concerns. Okay to discontinue sling once the nerve block has worn off and motor function as well as sensation has returned to your arm. De Quervain's Disease: Exercises Introduction Here are some examples of exercises for you to try. The exercises may be suggested for a condition or for rehabilitation. Start each exercise slowly. Ease off the exercises if you start to have pain. You will be told when to start these exercises and which ones will work best for you. How to do the exercises Thumb lifts Place your hand on a flat surface, with your palm up. Lift your thumb away from your palm to make a C shape. Hold for about 6 seconds. Repeat 8 to 12 times. Passive thumb MP flexion Hold your hand in front of you, and turn your hand so your little finger faces down and your thumb faces up. (Your hand should be in the position used for shaking someone's hand.) You may also rest your hand on a flat surface. Use the fingers on your other hand to bend your thumb down at the point where your thumb connects to your palm. Hold for at least 15 to 30 seconds. Repeat 2 to 4 times. Jesus stretch Hold your arms out in front of you. (Your hand should be in the position used for shaking someone'nick.) Bend your thumb toward your palm. Use your other hand to gently stretch your thumb and wrist downward until you feel the stretch on the thumb side of your wrist. Hold for at least 15 to 30 seconds. Repeat 2 to 4 times. Thumb opposition With your affected hand, point your fingers and thumb straight up. Your wrist should be relaxed, following the line of your fingers and thumb. Touch your affected thumb to each finger, one finger at a time. This will look like an okay sign,but try to keep your other fingers straight and pointing upward as much as you can. Repeat 8 to 12 times. Switch hands and repeat steps 1 through 3, even if only one thumb is sore. Follow-up care is a ojeda part of your treatment and safety. Be sure to make and go to all appointments, and call your doctor if you are having problems. It's also a good idea to know your test resultsand keep a list of the medicines you take. Where can you learn more? Go to [email or web address] and sign in to your [employer] account. Enter E635 in the Search Health Information box to learn more about De Quervain's Disease: Exercises. If you do not have an account, please click on the Sign Up Now link. Current as of: December 11, 2019 Content Version: 12.5 [employer]. Care instructions adapted under license by [employer]. If you have questions about a medical condition or this instruction, always ask your healthcare professional. [employer] disclaims any warranty or liability for your use of this information. * Attachments The following attachments cannot be sent through Care Everywhere. * General Anesthesia Discharge Instructions (Urdu) documented in this [facility]06-23-2023 NotePatient: Reji Foley Procedure Information Date/Time: 04/09/23 1200 Procedures: Ulnar nerve decompression with possible tranposition left elbow, Left first dorsal compartment decompression, and Left thumb carpometacarpal joint steroid injection (Left: Elbow) - 45 INCISION EXTENSOR TENDON SHEATH WRIST (RELEASE DEQUERVAINS CONTRACTURE) (Left: Wrist) ARTHROCENTESIS ASPIRATION AND/OR INJECTION SMALL JOINT OR BURSA (Left: Hand) Location: [address] Operating Room Surgeons: Karan Chavez MD Past Medical History: Past Medical History: No date: Anxiety No date: Elevated cholesterol No date: GERD (gastroesophageal reflux disease) No date: Hypertension Comment: pt unsure. pt states placed on BP meds after stroke No date: Pain in left arm No date: Stroke (HCC) Comment: over a year ago Past Surgical History: Past Surgical History: No date: CORNEAL TRANSPLANT; Left No date: TONSILLECTOMY No date: TUBAL LIGATION Social History: TOBACCO: reports that she has been smoking cigarettes. She has a 51.00 pack-year smoking history. She has never used smokeless tobacco. ETOH: reports current alcohol use. Social History Substance and Sexual Activity Drug Use Never Family History: No family history on file. Screening: Postmenopausal Clinical information reviewed: Tobacco Allergies Meds Med Hx Surg Hx OB Status Fam Hx Soc Hx Physical Exam Airway Mallampati: III TM distance: >3 FB Neck ROM: full Mouth Open: normalendotracheal tube not in place Cardiovascular Dental (+) Upper Dentures Comments: Lower implant and upper plate Pulmonary Abdominal Other findings: Lower implants GERD controlled - on omeprazole (PriLOSEC) Anesthesia Plan patient is NPO appropriate Any family history or previous problems with anesthesia no ASA 3 general and regional Any family history or previous problems with anesthesia no (Brachial plexus Discussed regional anesthesia for post operative pain reduction, all benefits and risks/complications. All questions were answered. Patient consents to a regional anesthesia for post operative pain control.) The patient is a current smoker. Patient was previously instructed to abstain from smoking on day of procedure. Patient did not smoke on day of procedure. Anesthetic plan and risks discussed with patient. Anesthesia Ojeda Considerations Corneal transplant OS ERAS Type Tylenol, Pepcid PRAVEEN Screening STOP-Bang Total Score: 2 Labs: Lab Results Component Value Date HGB 14.7 04/02/2023 HCT 43.4 04/02/2023 Lab Results Component Value Date NA 136 04/02/2023 K 3.6 04/02/2023 CL 105 04/02/2023 CO2 24 04/02/2023 BUN 15 04/02/2023 CREATININE 0.93 04/02/2023 GLUCOSE 101 (H) 04/02/2023 CALCIUM 8.5 04/02/2023 EGFR 65.8 04/02/2023 Pain Score: 6 EKG prelim 04/02/2023 IMPRESSION: Sinus bradycardia Borderline T abnormalities, anterior leads Electronically Signed On 04-04-2023 9:13:59 EDT by Yvette Keys No results found for this or any previous visit.[facility] 04-02-2023 NoteComprehensive PreSurgical History and Physical ? Name: Reji Foley : 1950 (Age-72 y.o.) Date of Service: Pt seen/examined on 04/02/2023 Procedure Information Date/Time: 04/09/23 1200 Procedures: Ulnar nerve decompression with possible tranposition left elbow, Left first dorsal compartment decompression, and Left thumb carpometacarpal joint steroid injection (Left: Elbow) - 45 INCISION EXTENSOR TENDON SHEATH WRIST (RELEASE DEQUERVAINS CONTRACTURE) (Left: Wrist) ARTHROCENTESIS ASPIRATION AND/OR INJECTION SMALL JOINT OR BURSA (Left: Hand) Location: [address] Operating Room Surgeons: Karan Chavez MD Chief Complaint: Carpal tunnel syndrome, left upper limb [G56.02] Radial styloid tenosynovitis (de quervain) [M65.4] Unilateral primary osteoarthritis of first carpometacarpal joint, left hand [M18.12] History Of Present Illness: 72 y.o. female who we are asked to see/evaluate by [place] [id number] for pre-operative evaluation prior to . ? Denies history of RI, CAD, CHF, TIA, Past Medical History: Past Medical History: No date: Anxiety No date: Elevated cholesterol No date: GERD (gastroesophageal reflux disease) No date: Hypertension Comment: pt unsure. pt states placed on BP meds after stroke No date: Pain in left arm No date: Stroke (HCC) Comment: over a year ago Past Surgical History: Past Surgical History: No date: CORNEAL TRANSPLANT; Left No date: TONSILLECTOMY No date: TUBAL LIGATION Medications Prior to Admission: Prior to Admission medications Medication Sig Start Date End Date Taking? Authorizing Provider acyclovir (Zovirax) 200 MG capsule Take 200 mg by mouth 2 times daily. 02/26/23 Historical ProviderMD amLODIPine (Norvasc) 5 MG tablet Take 5 mg by mouth daily. 01/02/23 Historical ProviderMD aspirin 325 MG tablet Take 325 mg by mouth daily. 02/22/23 Historical ProviderMD atorvastatin (Lipitor) 40 MG tablet Take 40 mg by mouth daily. 02/19/23 Historical ProviderMD clonazePAM (KlonoPIN) 0.5 MG tablet Take 0.5 mg by mouth 2 times daily. 01/27/23 Historical ProviderMD escitalopram (Lexapro) 20 MG tablet Take 20 mg by mouth daily. 01/05/23 Historical ProviderMD gabapentin (Neurontin) 300 MG capsule TAKE 1 CAPSULE BY MOUTH EVERYDAY AT BEDTIME 02/25/23 Historical ProviderMD losartan (Cozaar) 50 MG tablet Take 50 mg by mouth daily. 02/27/23 Historical ProviderMD metoprolol succinate XL (Toprol-XL) 25 MG 24 hr tablet Take 25 mg by mouth in the morning and 25 mg in the evening. Historical Provider, propranolol (Inderal) 80 MG tablet 03/19/23 Historical Provider, CHRONIC NARCOTIC USE: No Allergies: Patient has no known allergies. Can the patient take acetaminophen: Yes Social History: TOBACCO: reports that she has been smoking cigarettes. She has a 51.00 pack-year smoking history. She has never used smokeless tobacco. ETOH: reports current alcohol use. Social History Substance and Sexual Activity Drug Use Never Family History: No family history on file. REVIEW OF SYSTEMS: Review of Systems Constitutional: Negative for chills and fever. Respiratory: Negative for cough and shortness of breath. Cardiovascular: Negative for chest pain and palpitations. Gastrointestinal: Negative for abdominal pain, nausea and vomiting. Genitourinary: Negative for dysuria and hematuria. Skin: Negative for rash and wound. Neurological: Negative for dizziness and syncope. Physical Exam: Physical Exam Vitals reviewed. Constitutional: Appearance: Normal appearance. HENT: Head: Normocephalic. Nose: Nose normal. Mouth/Throat: Mouth: Mucous membranes are moist. Pharynx: Oropharynx is clear. Eyes: Extraocular Movements: Extraocular movements intact. Conjunctiva/sclera: Conjunctivae normal. Pupils: Pupils are equal, round, and reactive to light. Cardiovascular: Rate and Rhythm: Normal rate and regular rhythm. Pulses: Normal pulses. Heart sounds: Normal heart sounds. Pulmonary: Effort: Pulmonary effort is normal. Breath sounds: Normal breath sounds. Abdominal: General: Bowel sounds are normal. Palpations: Abdomen is soft. Musculoskeletal: General: Normal range of motion. Cervical back: Normal range of motion and neck supple. Skin: General: Skin is warm and dry. Capillary Refill: Capillary refill takes less than 2 seconds. Neurological: Mental Status: She is alert and oriented to person, place, and time. Psychiatric: Mood and Affect: Mood normal. Behavior: Behavior normal. Vitals: Vitals Value Taken Time BP 111/63 04/02/23 1418 Temp 36.3 ?C (97.4 ?F) 04/02/23 1418 Pulse 60 04/02/23 1418 Resp 16 04/02/23 1418 SpO2 95 % 04/02/23 1418 Labs: No results found for: WBC, HGB, HCT, MCV, PLT No results found for: NA, K, CL, CO2, BUN, CREATININE, GLUCOSE, CALCIUM, PROT, BILIRUBINFL, ALKPHOS, AST, ALT, EGFR, GLOB Clint's Simple Cardiac Risk Index: CLINT'S SIMPLE CARDI (more content not included)...[facility] 04-02-2023 Anesthesiology Preoperative evaluation and management note* Anesthesia Preprocedure Evaluation - Dustin Denson Jr., MD - 04/02/2023 2:40 PM EDT Patient: Reji Foley Procedure Information Date/Time: 04/09/23 1200 Procedures: Ulnar nerve decompression with possible tranposition left elbow, Left first dorsal compartment decompression, and Left thumb carpometacarpal joint steroid injection (Left: Elbow) - 45 INCISION EXTENSOR TENDON SHEATH WRIST (RELEASE DEQUERVAINS CONTRACTURE) (Left: Wrist) ARTHROCENTESIS ASPIRATION AND/OR INJECTION SMALL JOINT OR BURSA (Left: Hand) Location: [address] Operating Room Surgeons: Karan Chavez MD Past Medical History: Past Medical History: No date: Anxiety No date: Elevated cholesterol No date: GERD (gastroesophageal reflux disease) No date: Hypertension Comment: pt unsure. pt states placed on BP meds after stroke No date: Pain in left arm No date: Stroke (HCC) Comment: over a year ago Past Surgical History: Past Surgical History: No date: CORNEAL TRANSPLANT; Left No date: TONSILLECTOMY No date: TUBAL LIGATION Social History: TOBACCO: reports that she has been smoking cigarettes. She has a 51.00 pack-year smoking history. She has never used smokeless tobacco. ETOH: reports current alcohol use. Social History Substance and Sexual Activity Drug Use Never Family History: No family history on file. Screening: Postmenopausal Clinical information reviewed: Tobacco Allergies Meds Med Hx Surg Hx OB Status Fam Hx Soc Hx Physical Exam Airway Mallampati: III TM distance: >3 FB Neck ROM: full Mouth Open: normalendotracheal tube not in place Cardiovascular Dental (+) Upper Dentures Comments: Lower implant and upper plate Pulmonary Abdominal Other findings: Lower implants GERD controlled - on omeprazole (PriLOSEC) Anesthesia Plan patient is NPO appropriate Any family history or previous problems with anesthesia no ASA 3 general and regional Any family history or previous problems with anesthesia no (Brachial plexus Discussed regional anesthesia for post operative pain reduction, all benefits and risks/complications. All questions were answered. Patient consents to a regional anesthesia for post operative pain control.) The patient is a current smoker. Patient was previously instructed to abstain from smoking on day of procedure. Patient did not smoke on day of procedure. Anesthetic plan and risks discussed with patient. Anesthesia [place]jeda Considerations Corneal transplant OS ERAS Type Tylenol, Pepcid PRAVEEN Screening STOP-Bang Total Score: 2 Labs: Lab Results Component Value Date HGB 14.7 04/02/2023 HCT 43.4 04/02/2023 Lab Results Component Value Date NA 136 04/02/2023 K 3.6 04/02/2023 CL 105 04/02/2023 CO2 24 04/02/2023 BUN 15 04/02/2023 CREATININE 0.93 04/02/2023 GLUCOSE 101 (H) 04/02/2023 CALCIUM 8.5 04/02/2023 EGFR 65.8 04/02/2023 Pain Score: 6 EKG prelim 04/02/2023 IMPRESSION: Sinus bradycardia Borderline T abnormalities, anterior leads Electronically Signed On 04-04-2023 9:13:59 EDT by Yvette Keys No results found for this or any previous visit. [id number] Procedure noteWMary Rutan HospitalEvaluation noteNo assessment information availableCherrington Hospital Work Phone: Evaluation note* Diagnosis Onset Date Resolution Status Atrial fibrillation acute Hypertension [facility] Work Phone: Evaluation note* Diagnosis S/P cubital tunnel release- Primary Other postprocedural status documented in this encounter [facility] note* Diagnosis Cubital tunnel syndrome on left De Quervain's tenosynovitis, left Osteoarthritis of carpometacarpal (CMC) joint of left thumb S/P decompression of ulnar nerve at elbow Other postprocedural status documented in this encounter [facility] note* Diagnosis Cubital tunnel syndrome on left De Quervain's tenosynovitis, left Osteoarthritis of carpometacarpal (CMC) joint of left thumb, unspecified osteoarthritis type S/P decompression of ulnar nerve at elbow Other postprocedural status documented in this encounter [facility] for referral (narrative)No reason for referral information availableCherrington Hospital Work Phone: Summary Purpose Family History Relationship Condition Age at Onset Recorded Date/T saud Unknown Family History?No pertinent history Unkno wn February 22, 2015 12:45pm Family History?No pertinent history Unkno wn February 22, 2015 12:45pm Relationship Condition Age at Onset Recorded Date/T saud Unknown Family History?No pertinent history Unkno wn February 22, 2015 1:45pm Family History?No pertinent history Unkno wn February 22, 2015 1:45pm Advance Directives Advance Directive Response Recorded Date/ Time Advance Directives No February 21 5 4:54pm Living Will No October 30 2:51pm Power of Cab Driver No October 30, 2021 2:51pm Advance Directive Response Recorded Date/ Time Advance Directives No February 21 5 5:54pm Living Will No October 30 3:51pm Power of Cab Driver No October 30, 2021 3:51pm Latest Code Status on File Code Status Date Activated Date Inactivated Comments Full Code 04/09/2023 10:00 AM 04/09/2023 4:48 PM Latest Code Status on File Code Status Date Activated Date Inactivated Comments Full Code 04/09/2023 10:00 AM 04/09/2023 4:48 PM Advance Directive Response Recorded Date/ Time Living Will No October 30 3:51pm Do you have a Healthcare Power of Cab Driver? No October 30, 2021 3:51pm Do you have a Healthcare Power of Cab Driver? Yes February 12, 2025 3:05am Name of Medical Power of Cab Driver Adele Garcia February 12, 2025 3:05am Advance Directives No February 21 5:54pm Advance Directive Response Recorded Date/ Time Do you have a Healthcare Power of Cab Driver? Yes February 12, 2025 3:05am Name of Medical Power of Cab Driver Adele Garcia February 12, 2025 3:05am Advance Directives No February 21 5:54pm Advance Directive Response Recorded Date/ Time Advance Directives No February 21 5:54pm Chief Complaint and Reason for Visit Chief Complaint DECREASED RANGE OF M OTION OF WRIST,elbow to wrist 9 M FU LEFT WRIST OSTEO LEFT WRIST OSTEO Reason for Visit Atrial fibrillation Hypertension Chief Complaint Admit Date 1 Y FU January 25, 2025 2:2 8pm upper extremity injury, etoh intox February 122024 3:00am Essential (primary) hypertension February 132024 12:48pm Reason for Visit Admit Date Atrial fibrillation January 25, 2025 2:2 8pm Hypertension January 25, 2025 2:2 8pm Chief Complaint Admit Date upper extremity injury, etoh intox February 122024 3:00am Essential (primary) hypertension February 12:48pm PREOP February 20, 2025 1:01p m Additional Source Comments INFORMATION SOURCE (unrecogn ized section and content) DATE CREATED AUTHOR 03/20/2022 [facility] DATE CREATED AUTHOR AUTHOR'S ORGANIZ ATION 06/01/[address] [facility] DATE CREATED AUTHOR AUTHOR'S ORGANIZ ATION 05/22/2025 [facility] DATE CREATED AUTHOR AUTHOR'S ORGANIZ ATION 06/18/2025 [facility] DATE CREATED AUTHOR AUTHOR'S ORGANIZ ATION 07/04/2025 [facility] Care Teams (unrecognized sec tion and content) Team Status: Active Member Role Status Dates Dr. Mynor Underwood MD Family Provider Active Dr. Mynor Underwood MD Primary Care Provider Active Team Status: Inactive Member Role Status Dates Dr. Mynor Underwood MD Primary Care Provider, Attending Provider Active Team Status: Active Member Role Status Dates Dr. Mynor Underwood MD Primary Care Provider, Attending Provider Active Team Status: Inactive Member Role Status Dates Dr. Mynor Underwood MD Primary Care Provider, Referring Provider Active Dr. Bob Castellanos MD Attending Provider Active Team Status: Active Member Role Status Dates Dr. Mynor Underwood MD Primary Care Provider Active Dr. Marlon Berman DO Referring Provider, Other Prov ider Active Dr. Chandana Cuevas DO Attending Provider Active Team Status: Inactive Member Role Status Dates Dr. Mynor Underwood MD Primary Care Provider Active Dr. Marlon Berman DO Attending Provider, Referring Provider Active Recycle Coordinator Relationship Specialty Start Date End Date [facility] [address] [place] [address] PCP - General 04/02/23 Recycle Coordinator Relationship Specialty Start Date End Date [facility] [address] [place] [address] PCP - General 04/02/23 Recycle Coordinator Relationship Specialty Start Date End Date Mynor Underwood MD [address] [facility] [address] [place] [id number] PCP - General Family Medicine 05/31/23 Recycle Coordinator Relationship Specialty Start Date End Date [facility] [address] [place] [address] PCP - General 04/02/23 05/30/23 Team Status: Active Member Role Status Dates Dr. Mynor Underwood MD Primary Care Provider Active Team Status: Inactive Member Role Status Dates Dr. Mynor Underwood MD Primary Care Provider Active Start: January 25, 2025 End: January 25, 2025 Dr. Mynor Underwood MD Referring Provider Active Start: January 25, 2025 End: January 25, 2025 Dr. Bob Castellanos MD Attending Provider Active S tart: January 25, 2025 End: January 25, 2025 Team Status: Inactive Member Role Status Dates Dr. Mynor Underwood MD Primary Care Provider Active Start: February 12, 2025 End: February 12, 2025 Dr. Jan Mata DO Attending Provider Active Start : February 12, 2025 End: February 12, 2025 Dr. Jan Mata DO Emergency Provider Active Start : February 12, 2025 End: February 12, 2025 Team Status: Inactive Member Role Status Dates Dr. Mynor Underwood MD Primary Care Provider Active Start: February 20, 2025 End: February 20, 2025 ROSE MARIE Gardner Attending Provider Active St art: February 20, 2025 End: February 20, 2025 ROSE MARIE Gardner Referring Provider Active St art: February 20, 2025 End: February 20, 2025 Team Status: Active Member Role/Relationship Status Dates Dr. Mynor Underwood MD Primary Care Provider Active Team Status: Inactive Member Role/Relationship Status Dates Dr. Mynor Underwood MD Primary Care Provider Active Start: February 12, 2025 End: February 12, 2025 Dr. Jan Mata DO Attending Provider Active Start : February 12, 2025 End: February 12, 2025 Dr. Jan Mata DO Emergency Provider Active Start : February 12, 2025 End: February 12, 2025 Team Status: Inactive Member Role/Relationship Status Dates Dr. Mynor Underwood MD Primary Care Provider Active Start: February 20, 2025 End: February 20, 2025 ROSE MARIE Gardner Attending Provider Active St art: February 20, 2025 End: February 20, 2025 ROSE MARIE Gardner Referring Provider Active St art: February 20, 2025 End: February 20, 2025 Team Status: Active Member Role/Relationship Status Dates Dr. Mynor Underwood MD Primary Care Provider Active Start: February 20, 2025 End: February 20, 2025 Dr. Marlon Ballard MD Attending Provider Active Start: February 20, 2025 End: February 20, 2025 ROSE MARIE Gardner Referring Provider Active St art: February 20, 2025 End: February 20, 2025 Team Status: Inactive Member Role/Relationship Status Dates Dr. Mynor Underwood MD Primary Care Provider Active Start: May 30, 2025 End: May 30, 2025 Dr. Mynor Underwood MD Attending Provider Active Start: May 30, 2025 End: May 30, 2025 Dr. Mynor Underwood MD Referring Provider Active Start: May 30, 2025 End: May 30, 2025 Team Status: Active Member Role/Relationship Status Dates Dr. Mynor Underwood MD Primary care physician Active Team Status: Inactive Member Role/Relationship Status Dates Dr. Mynor Underwood MD Primary care physician Active Start: May 30, 2025 End: May 30, 2025 Dr. Mynor Underwood MD Attending physician Active Start: May 30, 2025 End: May 30, 2025 Dr. Mynor Underwood MD Referring Provider Active Start: May 30, 2025 End: May 30, 2025 Team Status: Inactive Member Role/Relationship Status Dates Dr. Mynor Underwood MD Primary care physician Active Start: June 18, 2025 End: June 18, 2025 Dr. Mynor Underwood MD Attending physician Active Start: June 18, 2025 End: June 18, 2025 Goals (unrecognized section and content) Goals may be documented in a n alternate sectionGoals may be documented in an alternate sectionGoals may be documented in an alternate sectionGoals may be documented in an alternate sectionGoals may be documented in an alternate sectionGoals may be documented in an alternate sectionGoals may be documented in an alternate section Reason for Visit (unrecogniz ed section and content) Specialty Diagnoses / Procedures Referred By Skylar t Referred To Contact Diagnoses Carpal tunnel syndrome, left upper limb Radial styloid tenosynovitis (de quervain) Unilateral primary osteoarthritis of first carpometacarpal joint, left hand Carpal tunnel syndrome, left upper limb [G56.02] Radial styloid tenosynovitis (de quervain) [M65.4] Unilateral primary osteoarthritis of first carpometacarpal joint, left hand [M18.12] Procedures ME NEUROPLASTY &/TRANSPOSITION ULNAR NERVE ELBOW ME INCISION EXTENSOR TENDON SHEATH WRIST ME ARTHROCENTESIS ASPIR&/INJ SMALL JT/BURSA W/O US Ulnar nerve decompression with possible tranposition left elbow, Left first dorsal compartment decompression, and Left thumb carpometacarpal joint steroid injection INCISION EXTENSOR TENDON SHEATH WRIST (RELEASE DEQUERVAINS CONTRACTURE) ARTHROCENTESIS ASPIRATION AND/OR INJECTION SMALL JOINT OR BURSA Karan Chavez MD [address] [facility] [address] [place] [address] [facility] [address] [place] [address] Referral ID Status Reason Start Date Expiration Date Visits Re quested Visits Authorized [id number] 1 1 Reason Comments Post-op DOS 04/09/2023- Left ulnar nerve decompression at the elbow (in situ), left first dorsal compartment release, left first CMC corticosteroid injections Reason Comments Post-op DOS 04/09/2023- Left ulnar nerve decompression at the elbow (in situ), left first dorsal compartment release, left first CMC corticosteroid injections Scheduled Active and Recently Administ ered Medications (unrecognized section and content) Medication Order 04/07/2023 04/08/2023 04/09/2023 acetaminophen (Tylenol) tablet 1,000 mg (COMPLETED) 1,000 mg, Oral, Once, On Wed04/09/23 at 1015, For 1 dose, Preprocedure, Maximum dose of acetaminophen is 4000 mg from all sources in 24 hours. Do not administer if patient has taken tylenol <4 hours earlier. Do not give if contraindicated ie. patient has active liver disease or cirrhosis. 1031 (Given - Provid er: Amanda Oleary RN) ceFAZolin in dextrose 4% (Ancef) IVPB 2,000 mg (COMPLETED) 2,000 mg, IntraVENous, Administer over 30 Minutes, Eyeglass Frames Inspector to O.R., On Wed04/09/23 at 1015, For 1 dose, Preprocedure, Administer within 1 hour prior to incision. Recommend to repeat in 3-4 hours after initial dose if still intra-op. premix bag, Suspected Indication (Select all that apply): Surgical Prophylaxis 1128 (Given - Provid er: Stephanie Noguera APRN - CASTING MACHINE OPERATOR) fawNLVZVfgxee-ejfzxwmdued-szuobxw rine (TAP) syringe 30 mL (COMPLETED) 30 mL, Transabdominal Plane, Once, On Wed04/09/23 at 1045, For 1 dose, Preprocedure, Brachial plexus not TAP 1103 (Given - Provid er: Christine Contreras RN - Comment: given by other) famotidine (Pepcid) tablet 20 mg (COMPLETED) 20 mg, Oral, Once, On Wed04/09/23 at 1015, For 1 dose, Preprocedure 1031 (Given - Provid er: Amanda Oleary RN) fentaNYL (Sublimaze) injection 100 mcg 100 mcg, IntraVENous, Once, On Wed04/09/23 at 1045, For 1 dose, Preprocedure, Pre-regional medication 1045 (Canceled Entry - Provider: Automatic Discharge Provider - Comment: Automatically canceled at discontinue of medication order) lidocaine PF (Xylocaine) 1 % injection 5 mL (COMPLETED) 5 mL, Injection, Once, On Wed04/09/23 at 1045, For 1 dose, Preprocedure, Skin analgesia, Prior to Regional Anesthetic. 1057 (Given - Provid er: Christine Contreras RN - Comment: given by other) sodium chloride 0.9 % bolus 500 mL 500 mL, IntraVENous, at 1,000 mL/hr, Administer over 0.5 Hours, Once, On Wed04/09/23 at 1445, For 1 dose, Recovery (only), Indications: Anti-nausea 1445 (Canceled Entry - Provider: Automatic Discharge Provider - Comment: Automatically canceled at discontinue of medication order) sodium chloride 0.9% (NS) flush 10 mL 10 mL, IntraVENous, Every 12 hours scheduled (2 times per day), First dose on Wed04/09/23 at 1015, Preprocedure 1015 (Canceled Entry - Provider: Automatic Discharge Provider - Comment: Automatically canceled at discontinue of medication order) sodium chloride 0.9% (NS) flush 5-40 mL 5-40 mL, IntraVENous, Every 12 hours, First dose on Wed04/09/23 at 1015, Preprocedure, For Line Patency: Peripheral IV = 5 mL; Midline or Central Line = 10 mL/lumen. If following IV push medication, administer flush at same rate as the IV push. Flush volume is determined by type of infusion therapy being given. For non-viscous solutions use: Peripheral IV = 5 mL Midline or Central Line = 10 mL/lumen For viscous solutions (i.e. blood components, parenteral nutrition, contrast media, or after obtaining blood sample) use: Peripheral IV = 10 mL Midline or Central Line = 20 mL/lumen 1015 (Canceled Entry - Provider: Automatic Discharge Provider - Comment: Automatically canceled at discontinue of medication order) Continuous Medication Order 04/07/2023 04/08/2023 04/09/2023 lactated Ringer's infusion 50 mL/hr, IntraVENous, Continuous, Starting on Wed04/09/23 at 1015, Preprocedure, Upon admission to sameday - please start iv if patient does not have iv access. Use 500ml NS for patients on dialysis. 1113 (New Bag - Prov ider: SHANTA Prasad CRNA)1203 (Anesthesia Volume Adjustment - Provider: SHANTA Prasad CRNA) lactated ringers infusion 125 mL/hr, IntraVENous, Continuous, Starting on Wed04/09/23 at 1445, Recovery (only) 1445 (Canceled Entry - Provider: Automatic Discharge Provider - Comment: Automatically canceled at discontinue of medication order) PRN Medication Order 04/07/2023 04/08/2023 04/09/2023 ALPRAZolam (Xanax) disintegrating tablet 0.25 mg 0.25 mg, Oral, PRN, anxiety, Starting on Wed04/09/23 at 1000, For 1 dose, Preprocedure, Using dry hands, place tablet on top of tongue and allow to disintegrate. Administration with water is not necessary. betamethasone acetate-betamethasone sodium phosphate (Celestone) injection (CANCELED) As needed, Starting on Wed04/09/23 at 1130, Intraprocedure 1130 (Given - Provid er: Karan Chavez MD - Comment: mixed with 0.5 mL 1% lidocaine) diphenhydrAMINE (BENADryl) injection 12.5 mg 12.5 mg, IntraVENous, Once PRN, itching, Starting on Wed04/09/23 at 1440, For 1 dose, Recovery (only) hydrALAZINE (Apresoline) injection 5 mg(Linked Group 1) 5 mg, IntraVENous, Every 15 min PRN, high blood pressure, for SBP greater than 160 mmHg for 2 consecutive measurements taken from different sites, Starting on Wed04/09/23 at 1440, For 2 doses, Recovery (only), PRN for SBP > 160 for 2 consecutive measurements, and if one of the following conditions is met: 1) If IV labetolol is ineffective. 2) If HR is under 60. 3) If patient has heart block, COPD or asthma. If both labetalol and hydralazine ineffective, notify anesthesia provider. labetalol (Normodyne,Trandate) injection 5 mg(Linked Group 1) 5 mg, IntraVENous, Every 10 min PRN, high blood pressure, for SBP greater than 160 mmHg for 2 consecutive measurements taken from different sites., Starting on Wed04/09/23 at 1440, For 2 doses, Recovery (only), PRN for SBP >160 for 2 consecutive measurements, if HR is 60 or greater. If beta richie is contraindicated (HR less than 60, heart block, COPD or asthma) use hydralazine IV order. lidocaine (Xylocaine) 1 % injection (CANCELED) As needed, Starting on Wed04/09/23 at 0000, Intraprocedure 0000 (Given - Provid er: Karan Chavez MD - Comment: mixed with 0.5 mL Celestone) lidocaine-EPINEPHrine (Xylocaine W/EPI) 1 %-1:089160 injection (CANCELED) As needed, Starting on Wed04/09/23 at 1208, Intraprocedure 1208 (Given - Provid er: Karan Chavez MD) LORazepam (Ativan) injection 0.5 mg 0.5 mg, IntraVENous, Once PRN, for anxiety or muscle spasm., Starting on Wed04/09/23 at 1440, For 1 dose, Recovery (only), For IV doses dilute dose with 1ml NS. metoclopramide (Reglan) injection 5 mg 5 mg, IntraVENous, Once PRN, nausea, Starting on Wed04/09/23 at 1440, For 1 dose, Recovery (only), Secondary antiemetic therapy. Notify anesthesia provider before administration. midazolam (Versed) injection 2 mg 2 mg, IntraVENous, PRN, anxiety, administration per anesthesiologist direction. Up to two mg., Starting on Wed04/09/23 at 1045, Preprocedure, Pull 2 mg vial of midazolam draw up for anesthesia block placement with administration per anesthesiologist direction. 1056 (Given - Provid er: Christine Contreras RN) ondansetron (Zofran) injection 4 mg 4 mg, IntraVENous, Once PRN, nausea, Starting on Wed04/09/23 at 1440, For 1 dose, Recovery (only), Initial antiemetic therapy. oxyCODONE (Roxicodone) immediate release tablet 10 mg(Linked Group 2) 10 mg, Oral, PRN, severe pain (7-10), Starting on Wed04/09/23 at 1440, For 1 dose, Recovery (only), PHASE II oxyCODONE (Roxicodone) immediate release tablet 5 mg(Linked Group 2) 5 mg, Oral, PRN, moderate pain (4-6), Starting on Wed04/09/23 at 1440, For 1 dose, Recovery (only), PHASE II sodium chloride 0.9 % infusion 5-250 mL/hr, IntraVENous, PRN, if patient receiving piggyback infusions and maintenance fluids are not ordered OR KVO fluids to protect IV site / prevent frequent line interruptions/ long duration, Starting on Wed04/09/23 at 1000, Preprocedure, For piggyback infusion, administer at same rate as piggyback for a total of 25 mL. Enter 25 mL into dose field and piggyback rate into rate field of order. If piggyback is infusing at a rate less than 100 mL/hr, enter 25 mL into dose field and 100 mL/hr into rate field of order. For KVO fluids, enter rate of 20 mL/hr or less into rate field of order. sodium chloride 0.9 % infusion 5-250 mL/hr, IntraVENous, PRN, if patient receiving piggyback infusions and maintenance fluids are not ordered OR KVO fluids to protect IV site / prevent frequent line interruptions / long duration, Starting on Wed04/09/23 at 1000, Preprocedure, For piggyback infusion, administer at same rate as piggyback for a total of 25 mL. Enter 25 mL into dose field and piggyback rate into rate field of order. If piggyback is infusing at a rate less than 100 mL/hr, enter 25 mL into dose field and 100 mL/hr into rate field of order. For KVO fluids, enter rate of 20 mL/hr or less into rate field of order. sodium chloride 0.9 % irrigation solution (CANCELED) As needed, Starting on Wed04/09/23 at 1146, Intraprocedure 1146 (Given - Provid er: Karan Chavez MD) sodium chloride 0.9% (NS) flush 10 mL 10 mL, IntraVENous, PRN, line care, Starting on Wed04/09/23 at 1000, Preprocedure, After every IV line use sodium chloride 0.9% (NS) flush 5-40 mL 5-40 mL, IntraVENous, PRN, line care, After every IV line use, Starting on Wed04/09/23 at 1000, Preprocedure, For Line Patency: Peripheral IV = 5 mL; Midline or Central Line = 10 mL/lumen. If following IV push medication, administer flush at same rate as the IV push. Flush volume is determined by type of infusion therapy being given. For non-viscous solutions use: Peripheral IV = 5 mL Midline or Central Line = 10 mL/lumen For viscous solutions (i.e. blood components, parenteral nutrition, contrast media, or after obtaining blood sample) use: Peripheral IV = 10 mL Midline or Central Line = 20 mL/lumen Linked Groups Order Group 1: labetalol (Normodyne,Trandate) injection 5 mgJump to med 5 mg, IntraVENous, Every 10 min PRN, high blood pressure, for SBP greater than 160 mmHg for 2 consecutive measurements taken from different sites., Starting on Wed04/09/23 at 1440, For 2 doses, Recovery (only)
PRN for SBP >160 for 2 consecutive measurements, if HR is 60 or greater. If beta richie is contraindicated (HR less than 60, heart block, COPD or asthma) use hydralazine IV order.
Or hydrALAZINE (Apresoline) injection 5 mgJump to med 5 mg, IntraVENous, Every 15 min PRN, high blood pressure, for SBP greater than 160 mmHg for 2 consecutive measurements taken from different sites, Starting on Wed04/09/23 at 1440, For 2 doses, Recovery (only)
PRN for SBP > 160 for 2 consecutive measurements, and if one of the following conditions is met: 1) If IV labetolol is ineffective. 2) If HR is under 60. 3) If patient has heart block, COPD or asthma. If both labetalol and hydralazine ineffective, notify anesthesia provider.
Group 2: oxyCODONE (Roxicodone) immediate release tablet 5 mgJump to med 5 mg, Oral, PRN, moderate pain (4-6), Starting on Wed04/09/23 at 1440, For 1 dose, Recovery (only)
PHASE II
Or oxyCODONE (Roxicodone) immediate release tablet 10 mgJump to med 10 mg, Oral, PRN, severe pain (7-10), Starting on Wed04/09/23 at 1440, For 1 dose, Recovery (only)
PHASE II
FOR RECORDS PERTAINING TO PATIENTS WHO ARE OR HAVE BEEN ENROLLED IN A CHEMICAL DEPENDENCY/SUBSTANCEABUSE PROGRAM, SOME INFORMATION MAY BE OMITTED. This clinical summary was aggregated from multiple sources. Caution should be exercised in using it in the provision of clinical care. This summary normalizes information from multiple sources, and as a consequence, information in this document may materially change the coding, format and clinical context of patient data. In addition, data may be omitted in some cases. CLINICAL DECISIONS SHOULD BE BASED ON THE PRIMARY CLINICAL RECORDS. [employer] provides no warranty or guarantee of the accuracy or completeness of information in this document.
== END | disposition home or self-care (01) ==
PROVIDERS: PCP Family Medicine; Referring Provider Family Medicine; Visit Provider Family Medicine
DX: Z12.31 Encounter for screening mammogram for malignant neoplasm of breast (principal); Z78.0 Asymptomatic menopausal state
CPT/HCPCS: 77063; 77067; 77080